=== PATIENT | male | born 1935 | race Caucasian/White ===

== ENCOUNTER 2017-08-06 08:53 | Inpatient (IN) | payer MEDICARE ==
--- NOTE | 2017-08-06 09:30 | ED ---
General Adult HPI - General Chief complaint: Extremity Injury, Upper Stated complaint: LEFT HIP PAIN Time Seen by Provider: 08/06/17 09:22 Source: patient, RN notes reviewed Mode of arrival: wheelchair Limitations: no limitations - History of Present Illness Initial comments: 81-year-old male presents emergency per chief complaint of left hip pain. Patient states he is scheduled to have his left hip redone by Dr. Bautista on August 15 because the hip keeps popping in and out. Patient states that he woke up and went to turn off alarm and he felt as if his hip went out. Patient states she's been unable to ambulate since then. Patient states that this happens often. She admits to some cramping in the leg. Patient states in certain positions he does not have pain and others he has increased pain that is moderate. Patient states he was unable to give him himself at home so he thought that he could come here for STD. Patient states he is not currently having any other symptoms at this time. Patient denies any recent fever, chills , shortness of breath, chest pain, back pain, abdominal pain, nausea vomiting, numbness or tingling, dysuria or hematuria, constipation or diarrhea, headaches or visual changes, or any other current symptoms. - Related Data Home Medications Medication Instructions Recorded Confirmed Lisinopril [Zestril] 5 mg PO DAILY 08/06/17 08/06/17 Tamsulosin HCl [Flomax] 0.4 mg PO BID 08/06/17 08/06/17 Allergies Allergy/AdvReac Type Severity Reaction Status Date / Time banana Allergy Unknown Verified 08/06/17 09:23 Milk Containing Products Allergy Unknown Verified 08/06/17 09:23 [Dairy] Review of Systems ROS Statement: Those systems with pertinent positive or pertinent negative responses have been documented in the HPI. ROS Other: All systems not noted in ROS Statement are negative. Past Medical History Past Medical History: Hypertension, Prostate Disorder History of Any Multi-Drug Resistant Organisms: None Reported Past Surgical History: Adenoidectomy, Hernia Repair, Joint Replacement, Tonsillectomy Past Psychological History: No Psychological Hx Reported Smoking Status: Never smoker Past Alcohol Use History: None Reported Past Drug Use History: None Reported General Exam - General Exam Comments Initial Comments: General: The patient is awake and alert, in no distress, and does not appear acutely ill. Neck: The neck is supple, there is no tenderness. Cardiovascular: There is a regular rate and rhythm. No murmur, rub or gallop is appreciated. Respiratory: Lungs are clear to auscultation, respirations are non-labored, breath sounds are equal. No wheezes, stridor, rales, or rhonchi. Musculoskeletal: Sensation intact with 2+ pulses at the left lower extremity. Fund motion of left ankle. Patient has about 50% range of motion left knee which is limited due to pain with movement of the left knee and the hip. Patient is able to lay down as well as sitting at bedside with left hip. No obvious deformity noted. Neurological: CN II-XII intact, There are no obvious motor or sensory deficits. Coordination appears grossly intact. Speech is normal. Skin: Skin is warm and dry and no rashes or lesions are noted. Psychiatric: Normal mood and affect. Limitations: no limitations Course Vital Signs 08/06/17 09:15 Temperature 97.1 F L Pulse Rate 74 Respiratory 18 Rate Blood Pressure 152/91 O2 Sat by Pulse 98 Oximetry Procedures - Orthopedic Joint Reduction Joint #1 Consent Obtained: verbal consent Time Out Performed: Yes Side: left Joint Reduction Location: hip Analgesia: procedural sedation Amount of Anesthetic Used (mLs): 10 Technique Used: traction/counter-traction Post-Reduction Neuro Exam: intact Post-Reduction Vascular Exam: intact Post Reduction X-Ray Obtained: No Post Reduction X-Ray Results: not reduced Patient Tolerated Procedure: well, no complications Medical Decision Making - Medical Decision Making 81-year-old male presents for left hip pain. Patient does appear to have a hip dislocation. We did attempt to reduce the hip without success. Dr. Bennett was contacted by . The patient will be admitted we will keep him nothing by mouth. Patient is in agreement with this plan. - Radiology Data Radiology results: report reviewed, image reviewed Disposition Clinical Impression: Hip dislocation, left Disposition: ADMITTED IP TO THIS [facility] Condition: Stable Referrals: Masoud Joy Jr, DO [Primary Care Provider] - 1-2 days Decision Date: 08/06/17 Decision Time: 11:24
--- NOTE | 2017-08-06 10:02 | XR ---
EXAMINATION TYPE: XR Hip LT and AP Pelvis DATE OF EXAM: 08/06/2017 COMPARISON: NONE HISTORY: Left hip pain after bending injury. TECHNIQUE: A single AP view of the pelvis is obtained. Two views of the left hip are obtained. FINDINGS: On the attempted frog-leg image there appears to be displacement of the metallic component of the femoral head relative to the metallic acetabulum suggesting prosthetic dislocation. No acute f racture is evident. There is moderate joint space loss and subchondral cystic change with spurring in the right hip. Osse ous structures are demineralized. Sacroiliac joints are maintained. Vascular calcification overlying soft tissue is present. IMPRESSION: There is left hip prosthesis dislocation. This could be transient. Correlate clinically.
[2017-08-06] MEDS ORDERED: SODIUM CHLORIDE 0.9% 1,000 ML IV STA (10:46)
[2017-08-06] MEDS ORDERED: PROPOFOL 10 MG/ML 20 ML VIAL IV STA (10:46)
[2017-08-06] MEDS ORDERED: NALOXONE 0.4 MG/ML 1 ML VIAL IV PRN (11:36)
[2017-08-06] MEDS ORDERED: ONDANSETRON 4 MG/2 ML VIAL IVP PRN (11:36)
[2017-08-06] MEDS ORDERED: HYDROmorphone 0.5 MG/0.5 ML SYRINGE IVP PRN (11:36)
[2017-08-06 12:03] LABS: Basophils % (A) 0 %; CH 30.9; CHCM 33.6; Eosinophils # (A) 0.1 k/uL (0-0.7); Eosinophils % (A) 1 %; HCT 47.5 % (39.0-53.0); HDW 2.62; HGB 15.7 gm/dL (13.0-17.5); Luc # (Auto) 0.07; Luc % (Auto) 1; Lymphocytes # (A) 0.9 k/uL (1.0-4.8); Lymphocytes % (A) 12 %; MCH 30.6 pg (25.0-35.0); MCHC 33.1 g/dL (31.0-37.0); MCV 92.4 fL (80.0-100.0); Mean Platelet Volume 8.4; Monocytes # (A) 0.4 k/uL (0-1.0); Monocytes % (A) 5 %; Neutrophils # (A) 6.4 k/uL (1.3-7.7); Neutrophils % (A) 81 %; RBC 5.14 m/uL (4.30-5.90); RDW 13.1 % (11.5-15.5); WBC 7.9 k/uL (3.8-10.6)
--- NOTE | 2017-08-06 12:07 | XR ---
EXAMINATION TYPE: XR Hip Limited LT DATE OF EXAM: 08/06/2017 CLINICAL HISTORY: Left hip dislocation. TECHNIQUE: Single AP portable view of left hip is obtained after attempted reduction. COMPARISON: Pelvic and left hip x-ray from earlier today. FINDINGS: Metallic hardware from total left hip arthroplasty is redemonstrated. Metallic femoral head component on single projection image is slightly more superior and more lateral in position relative to the acetabular component on prior study. It is partially covered by metallic acetabulum. Adjacent heterotopic ossification is redemonstrated. No full prosthetic dislocation is evident on single view after attempted reduction but this was only evident on prior frog-leg view. IMPRESSION: As above
--- NOTE | 2017-08-06 12:09 | XR ---
EXAMINATION TYPE: XR chest 2V DATE OF EXAM: 08/06/2017 COMPARISON: 01/07/2014 HISTORY: Chest pain. TECHNIQUE: Frontal and lateral views of the chest are obtained. FINDINGS: There is no focal air space opacity, pleural effusion, or pneumothorax seen. The cardiac silhouette size is mildly enlarged. The osseous structures are intact. Bridging osteophytes are seen of the thoracic spine anteriorly. Degenerative changes of the acromioclavicular joint and glenohumera l joints are also seen. IMPRESSION: No acute cardiopulmonary process.
[2017-08-06 12:11] LABS: Partial Thromboplastin Time 25.4 sec (22.0-30.0); Prothrombin Time 10.5 sec (9.0-12.0)
[2017-08-06 12:20] LABS: ALT 43 U/L (21-72); AST 48 U/L (17-59); Alkaline Phosphatase 80 U/L (38-126); Anion Gap 10 mmol/L; Blood Urea Nitrogen 14 mg/dL (9-20); Calcium 8.7 mg/dL (8.4-10.2); Carbon Dioxide 24 mmol/L (22-30); Chloride 107 mmol/L (98-107); Glucose 114 mg/dL (74-99); Non-African American GFR(MDRD) >60 (>60 ml/min/1.73 sqM); Potassium 4.6 mmol/L (3.5-5.1); Sodium 141 mmol/L (137-145); Total Bilirubin 0.9 mg/dL (0.2-1.3); Total Protein 6.9 g/dL (6.3-8.2)
--- NOTE | 2017-08-06 12:43 | XR ---
EXAMINATION TYPE: XR Hip Limited LT DATE OF EXAM: 08/06/2017 CLINICAL HISTORY: Left hip pain after dislocation TECHNIQUE: Single frog leg view of left hip is obtained. COMPARISON: None. FINDINGS: Metallic hardware from left hip arthroplasty is seen and appears satisfactory in alignment and position. The previously seen lateral subluxation is not redemonstrated after relocation. Regine ding heterotopic ossification the femoral component and periprosthetic lucency is seen of the acetabu lar component. There is evidence of recent surgery with subcutaneous gas noted laterally. IMPRESSION: 1. Metallic hardware from left hip arthroplasty is satisfactory in position. Previously seen subluxa tion is not redemonstrated on this examination. 2. Periprosthetic lucency around the acetabular component of the left femoral arthroplasty that could relate to aseptic or septic loosening.
[2017-08-06] MEDS ORDERED: LISINOPRIL 5 MG TAB PO STA (14:29)
--- NOTE | 2017-08-06 15:53 | P.HPOR ---
History of Present Illness H&P Date: 08/06/17 Chief Complaint: Left hip dislocation This is an 81-year-old male who is seen and evaluated today [facility]. Patient was brought to the emergency room with regards to left hip pain. Patient has a history of a left total hip arthroplasty that was done about 20 years ago at the [facility]. Since the initial surgery, patient has had multiple issues with that left hip including subluxations and dislocations. Patient states that it dislocates often posteriorly and he is able to relocate the hip. He was reaching over this morning to shut off the alarm clock when he noticed immediate pain and inability to move his leg on that left side. It felt different than all the other dislocations that he's had. Upon arrival to the hospital, imaging and lab tests were done. Images demonstrated a anterior dislocated periprosthetic left hip. Initial relocation technique was tried by the emergency room staff, they were unable to achieve this. Our orthopedic team was then consult it with regards to this problem. I initially saw the patient in the emergency room. Patient was then scheduled for closed reduction under anesthesia of the left hip. Procedure will be done the afternoon of 08/06/2017. Patient was made nothing by mouth at the time of arrival to the hospital. Patient is actually scheduled for a revision left total hip arthroplasty with a different orthopedic surgeon in [place] on 08/15/2018. Patient was actually supposed to report to the hospital for preoperative testing today. Patient will likely be admitted to the hospital overnight for further evaluation. Review of Systems Constitutional: Reports as per HPI Past Medical History Past Medical History: Atrial Fibrillation, Eye Disorder, Hypertension, Myocardial Infarction ([place]), Pneumonia, Prostate Disorder Additional Past Medical History / Comment(s): Afib with RVR when pt had pneumonia, BPH, colon polyp/diverticular dx, astigmatism L eye, [place] 1997 per stress test, gastric ulcer, generalized arthritis. Last Myocardial Infarction Date:: 1997 History of Any Multi-Drug Resistant Organisms: None Reported Past Surgical History: Adenoidectomy, Hernia Repair, Orthopedic Surgery, Tonsillectomy Additional Past Surgical History / Comment(s): R inguinal hernia repair, ORIF L hip, vasectomy, hemorrhoidectomy, colonoscopy. Past Anesthesia/Blood Transfusion Reactions: No Reported Reaction Smoking Status: Former smoker - Past Family History Mother Family Medical History: No Reported History Additional Family Medical History / Comment(s): Mother was executed in [place]. Sister(s) Family Medical History: No Reported History Additional Family Medical History / Comment(s): Sister was executed in [place]. Father Family Medical History: CVA/TIA, Myocardial Infarction ([place]) Medications and Allergies Home Medications Medication Instructions Recorded Confirmed Type Lisinopril [Zestril] 5 mg PO DAILY 08/06/17 08/06/17 History Tamsulosin HCl [Flomax] 0.4 mg PO BID 08/06/17 08/06/17 History Allergies Allergy/AdvReac Type Severity Reaction Status Date / Time banana Allergy Unknown Verified 08/06/17 09:23 Milk Containing Products Allergy Unknown Verified 08/06/17 09:23 [Dairy] Physical Examination Left lower extremity: Obvious shortening and internal rotation of the leg is noted when compared to contralateral side. There is no obvious open lesions or sores. There is no obvious significant areas of ecchymosis or soft tissue swelling. Previous scars noted on the lateral aspect of the left leg. No effusion present over the knee. Logroll maneuver reproduces pain, he is unable to straight leg raise. Plantar flexion, dorsiflexion, EHL, FHL are intact. Sensory exam to light touch throughout the extremities intact. Dorsal pedis pulse was palpated with doppler. Results - Labs Labs: Abnormal Lab Results - Last 24 Hours (Table) 08/06/17 08/06/17 Range/Units 11:45 11:45 Plt Count 132 L (150-450) k/uL Lymphocytes # 0.9 L (1.0-4.8) k/uL Glucose 114 H (74-99) mg/dL H & H 08/06/17 Range/Units 11:45 Hgb 15.7 (13.0-17.5) gm/dL Hct 47.5 (39.0-53.0) % Coagulation 08/06/17 Range/Units 11:45 INR 1.0 (<1.2) Result Diagrams: 08/06/17 11:45 08/06/17 11:45 - Diagnostic results Hip x-ray: report reviewed, image reviewed Assessment and Plan Plan: Imaging: Multiple views of the left hip are obtained both pre-and post relocation attempt. Images do demonstrate the anterior dislocation of the left periprosthetic hip. There appears to be no acute fractures or dislocations. No other osseous abnormalities. Assessment: 1. Left periprosthetic hip dislocation 2. Nontraumatic event 3. Previous left total hip arthroplasty done in 1997 Plan: 1. I was able to discuss the case, including both physical exam findings and imaging studies with Dr. Salguero. Our plan is to proceed with a closed reduction of the left hip under direct xray visualization. The risks and benefits of the procedure were discussed with him at bedside today, he is in a grandson will likely proceed. Case will be scheduled for the afternoon of 08/06/2017. 2. Anticipate patient to stay at least one night in the hospital for further monitoring 3. Nothing by mouth diet at this time 4. Therapy evaluation after surgery 5. Further recommendations to follow Time with Patient: Less than 30
[2017-08-06] MEDS ORDERED: LACTATED RINGERS 1,000 ML IV ONE (16:00)
[2017-08-06] MEDS ORDERED: fentaNYL (PF) 50 MCG/ML 2 ML AMP ONE (17:10)
[2017-08-06] MEDS ORDERED: HYDROcodone/APAP 5-325MG 1 EACH TAB PO PRN (17:24)
--- NOTE | 2017-08-06 17:29 | P.OP ---
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 He notes these able to normally dario this is in himself. He claims he is scheduled for revision arthroplasty in the next couple weeks. He underwent attempted closed reduction the emergency room without success. He discussion of the risks and benefits of attempted closed reduction with general anesthesia was made with patient. He opted to proceed. Operative risks to include recurrence of dislocation and need for subsequent procedures was discussed. Informed consent was obtained. Operative Findings: Posterior dislocation of a left total hip arthroplasty Description of Procedure: The patient was brought to the operating room, and after induction of general anesthesia I examined the left hip. There was shortening along with internal rotation and flexion of the left leg. I then flexed to 90, abducted the hip, and pulled longitudinal traction and easily reduced this dislocation. Fluoroscopy was used to check the adequacy this. I felt it was stable throughout flexion and extension. An abductor a little was placed. The patient was awoken from general anesthesia and transferred to the recovery room in good condition. There was no blood loss. No complications were incurred.
[2017-08-06 18:32] LABS: Basophils % (A) 1 %; CH 31.8; CHCM 33.6; Eosinophils # (A) 0.1 k/uL (0-0.7); Eosinophils % (A) 1 %; HCT 46.9 % (39.0-53.0); HDW 2.53; HGB 15.2 gm/dL (13.0-17.5); Luc # (Auto) 0.07; Luc % (Auto) 1; Lymphocytes # (A) 0.9 k/uL (1.0-4.8); Lymphocytes % (A) 12 %; MCH 30.9 pg (25.0-35.0); MCHC 32.5 g/dL (31.0-37.0); MCV 95.1 fL (80.0-100.0); Monocytes # (A) 0.5 k/uL (0-1.0); Monocytes % (A) 6 %; Neutrophils # (A) 6.1 k/uL (1.3-7.7); Neutrophils % (A) 79 %; RBC 4.93 m/uL (4.30-5.90); RDW 14.3 % (11.5-15.5); WBC 7.7 k/uL (3.8-10.6)
[2017-08-06] MEDS: TAMSULOSIN 0.4 MG CAP.ER.24H PO SCH (20:19)
[2017-08-07 07:33] VITALS: BP 118/63; PULSE 93; RESP 16; TEMP 96.8
[2017-08-07] MEDS: TAMSULOSIN 0.4 MG CAP.ER.24H PO SCH (08:23)
[2017-08-07] MEDS ORDERED: LISINOPRIL 5 MG TAB PO SCH (09:00)
--- NOTE | 2017-08-07 09:45 | FL ---
Fluoroscopy HISTORY: Closed reduction 2 seconds fluoroscopy time supplied to the referring clinician. 1 intraoperative C-arm image documen ts the procedure. See dictated report from orthopedic surgery.
--- NOTE | 2017-08-07 12:49 | P.PN ---
Subjective Progress Note Date: 08/07/17 Principal diagnosis: s/p closed reduction left hip Patient seen today resting in his hospital bed, he appears comfortable. He's been very minimal discomfort with regards to left hip. He did bring his hip abduction brace from home, he is wearing at this point. Objective - Vital Signs Vital signs: Vital Signs Temp 96.8 F L 08/07/17 07:32 Pulse 93 08/07/17 07:32 Resp 16 08/07/17 07:32 BP 118/63 08/07/17 07:32 Pulse Ox 93 L 08/07/17 07:32 Intake & Output 08/06/17 08/07/17 08/07/17 18:59 06:59 18:59 Intake Total 400 120 Output Total 1200 600 Balance 400 -1200 -480 Weight 101.151 kg Intake: IV 400 Oral 120 Output: Urine 1200 600 Other: Voiding Method Urinal Urinal Urinal # Voids 0 0 # Bowel Movements 1 - Exam Left lower extremity: Alignment of the left lower extremity is appropriate, there is no obvious shortening or malalignment with rotation. Minimal pain with logroll maneuver. No pain surrounding the knee or foot or ankle. Sensation to light touch is intact throughout the extremity, does pedis pulses 2+. - Labs CBC & Chem 7: 08/06/17 18:09 08/06/17 11:45 Labs: Abnormal Lab Results - Last 24 Hours (Table) 08/06/17 Range/Units 18:09 Plt Count 141 L (150-450) k/uL Lymphocytes # 0.9 L (1.0-4.8) k/uL Assessment and Plan Plan: Assessment: 1. Postop day 1 status post closed reduction left hip Plan: Advise use of hip abduction brace at all times Advised posterior hip precautions Patient is scheduled to follow-up with Dr. Bautista for further treatment of the left hip Patient will be given our follow-up information for any further questions regarding this condition Time with Patient: Less than 30
--- NOTE | 2017-08-07 12:53 | P.DS ---
Providers Date of admission: 08/06/17 11:36 Expected date of discharge: 08/07/17 Attending physician: Lalito Salguero Primary care physician: [facility] Course: Date of admission: 08/06/2017 Date of discharge: 08/07/2017 Admission diagnosis: Left periprosthetic hip dislocation Discharge diagnosis: Status post closed reduction left hip Attending physician: Dr. Salguero Surgical procedures: Closed reduction left hip dislocation Brief history: Patient is a 81-year-old man who presented to [facility] on emergency room yesterday with a dislocated left hip. Patient has a history of a left total hip arthroplasty that was done about 20 years ago at a different facility. Patient has had recurrent dislocations of the hip in the past. Patient is asked was scheduled for a revision left total hip arthroplasty with Dr. Bautista at [facility] on 08/15/2018. Patient was admitted to the hospital and a closed reduction procedure by Dr. Salguero was scheduled for the afternoon of 08/06/2017. Hospital course: Details of patient's surgery can be found in operative report. Patient tolerated the procedure well and was subsequently transported to orthopedic floor. Patient's orthopeidc and medical care was provided daily. Patient had daily physical therapy to include strengthening range of motion as well as education with walker ambulation. Patient had daily CPM usage as part of their physical therapy program. Patient was noted to have a relatively uneventful postoperative course. Patient reported satisfactory pain control with oral pain medications by postoperative day 0. Patient showed satisfactory progress with physical therapy. Patient moved steadily through the program and had no difficulty meeting the goals by postoperative day 1. Given patient's otherwise satisfactory course and having met physical therapy goals, plan is to discharge patient home on postoperative day 1. Discharge condition/disposition: Patient will be discharged home in stable condition. Discharge medications: No new medications Discharge instructions: 1. Patient was advised to utilize hip abduction brace at all times 2. Advised patient to utilize posterior hip precautions 3. Advised continuation of follow-up with Dr. Bautista 4. Patient will be given our office information for as needed follow-up Procedures: Closed reduction left hip dislocation Patient Condition at Discharge: Stable Plan - Discharge Summary Discharge Rx Participant: No New Discharge Prescriptions: No Action Tamsulosin HCl [Flomax] 0.4 mg PO BID Lisinopril [Zestril] 5 mg PO DAILY Aspirin [Adult Low Dose Aspirin EC] 81 mg PO DAILY Discharge Medication List Aspirin [Adult Low Dose Aspirin EC] 81 mg PO DAILY 08/06/17 [History] Lisinopril [Zestril] 5 mg PO DAILY 08/06/17 [History] Tamsulosin HCl [Flomax] 0.4 mg PO BID 08/06/17 [History] Follow up Appointment(s)/Referral(s): Masoud Joy Jr, DO [Primary Care Provider] - 1-2 days Lalito Salguero MD [STAFF PHYSICIAN] - As Needed Activity/Diet/Wound Care/Special Instructions: Orthopedic discharge instructions: 1. Utilize hip abduction brace at all times 2. Adhere to posterior hip precautions 3. Follow-up with Dr. Bautista for further treatment 4. Follow-up as needed with Dr. Salguero for any further questions regarding this condition Discharge Disposition: HOME SELF-CARE
--- NOTE | 2017-08-07 15:31 | XR ---
Left hip HISTORY: Closed reduction 1 Intraoperative C-arm image documents the procedure
== END 2017-08-07 13:17 | disposition home or self-care (01) | DRG 561 ==
LOC: EC 08:53 → 3SUR 11:36 → 4MS4W 12:23
PROVIDERS: ADMIT Orthopaedic Surgery; ATTEND Orthopaedic Surgery
PROC: 0SWSXJZ Revision of Synthetic Substitute in Left Hip Joint, Femoral Surface, External Approach (ICD-10-PCS; principal; 2017-08-06 08:30)
DX: T84.021A Dislocation of internal left hip prosthesis, initial encounter (principal); I48.91 Unspecified atrial fibrillation; I10 Essential (primary) hypertension; I25.2 Old myocardial infarction; N40.0 Benign prostatic hyperplasia without lower urinary tract symptoms; M19.91 Primary osteoarthritis, unspecified site; Z86.010 Personal history of colon polyps; Z79.82 Long term (current) use of aspirin; Z79.899 Other long term (current) drug therapy; Z87.11 Personal history of peptic ulcer disease; Z87.891 Personal history of nicotine dependence; Z91.011 Allergy to milk products; Z91.018 Allergy to other foods; Y79.2 Prosthetic and other implants, materials and accessory orthopedic devices associated with adverse incidents
CPT/HCPCS: 71020; 73501; 73502; 80053; 85025; 85610; 85730; 86850; 86900; 86901; 96361; 96374; 99284

== ENCOUNTER → 2018-10-31 | Outpatient (CLI) | payer MEDICARE, OTHER ==
--- NOTE | 2018-10-31 12:08 | CONS ---
CONSULTATION DATE OF SERVICE: 10/31/2018 An 83-year-old gentleman who has been evaluated in the [facility] for possible obstructive sleep apnea-hypopnea syndrome. HISTORY OF PRESENT ILLNESS/SLEEP WAKE EVALUATION: Patient's usual sleep schedule from around midnight until 6 am. Usually no problems with falling asleep. No TV in bedroom. He sleeps by himself at the present time. Sometimes, he wakes up because he needs to go to the bathroom. No history of hypnagogic hallucinations, sleep paralysis or cataplexy. [place] Sleepiness Scale is 7. PAST MEDICAL HISTORY: Positive for atrial fibrillation. PAST SURGICAL HISTORY: Total left hip replacement and hernia repair. MEDICATIONS: Coumadin, Lasix, potassium supplement, tamsulosin. SOCIAL HISTORY: Positive for smoking up to 3 - 4 pack years, quit for about for 40 years. Quit in 1993. Alcohol consumption none at the present time. REVIEW OF SYSTEMS: Sometimes tiredness and sleepiness during the day. FAMILY HISTORY: Stroke and sleep apnea by his father. PHYSICAL EXAM: gentleman without distress. BP 142/91, HR 83, RR 16, height 5, 8 inches, weight 241.8, body mass index 36.7, temperature 97.0, oxygen saturation at room air 96%. OROPHARYNX: Extremely low position of soft palate, Mallampati 4, wide neck 17-1/4 inches in circumference. ABDOMEN: Obese. EXTREMITIES: 1+ bilateral ankle edema. HEART: S1, S2, irregularly irregular. IMPRESSION: 1. Extremely low position of soft palate, Mallampati 4, wide neck, obesity, obstructive sleep apnea-hypopnea syndrome. 2. Atrial fibrillation. 3. Obesity, body mass index 36.7. 4. Status post left hip total replacement. 5. Status post hernia repair. PLAN: 1. Polysomnography for evaluation of patient's breathing during sleep. 2. CPAP/BiPAP titration if sleep study confirms obstructive sleep apnea-hypopnea syndrome. 3. Preferable position during sleep on the side. 4. No driving if patient feels any sleepiness. 5. I will see patient for follow up visit to explain results of testing and following plan. Thank you very much for referring this patient for consultation. Sincerely, Andres Martinez MD, PhD, FAASM Diplomat of [place] [employer] [place] [employer] [facility] [place] SANJAY / JEANNA: [phone] /
== END ==
LOC: SLEEP 10:44
PROVIDERS: ATTEND Internal Medicine
DX: G47.33 Obstructive sleep apnea (adult) (pediatric) (principal); I48.91 Unspecified atrial fibrillation; E66.9 Obesity, unspecified; Z96.642 Presence of left artificial hip joint; Z98.890 Other specified postprocedural states; Z68.36 Body mass index [BMI] 36.0-36.9, adult; Z99.89 Dependence on other enabling machines and devices; Z79.899 Other long term (current) drug therapy; Z79.01 Long term (current) use of anticoagulants; Z87.891 Personal history of nicotine dependence
CPT/HCPCS: 99211

== ENCOUNTER → 2019-07-16 | Outpatient (CLI) | payer MEDICARE, OTHER | END | disposition home or self-care (01) | LOC: LABWHC1 12:56 | PROVIDERS: ATTEND Family Medicine | DX: B96.81 Helicobacter pylori [H. pylori] as the cause of diseases classified elsewhere (principal) | CPT/HCPCS: 87338 ==

== ENCOUNTER → 2019-08-15 | Outpatient (CLI) | payer MEDICARE, OTHER ==
--- NOTE | 2019-08-15 17:26 | CT ---
EXAMINATION TYPE: CT chest wo con DATE OF EXAM: 08/15/2019 COMPARISON: None HISTORY: increasing difficulty breathing CT DLP: 474.8 mGycm, Automated exposure control for dose reduction was used. CONTRAST: None TECHNIQUE: Axial images were obtained at 5 mm thick sections. Reconstructed images are reviewed on [employer] computer in the coronal plane. FINDINGS: Portion of the thyroid visualized is normal. There is a 0.3 cm calcification at the base of the right middle lobe. This is adjacent to some nodula rity measuring 1.0 x 1.6 cm. Additional workup with PET CT is recommended. No enlarged mediastinal or hilar adenopathy is evident. Scattered small lymph nodes or within the m ediastinum. The ascending aorta diameter at the level of the main pulmonary artery is 3.6 cm. The ma in pulmonary artery diameter at the bifurcation is 3.3 cm. Moderate coronary artery calcification is present. Heart size appears prominent Limited CT sections are obtained through the upper abdomen. Upper abdomen appears essentially unremar kable. IMPRESSIONS: 1. There is a 1.0 x 1.6 cm lobular density at the right middle lobe lung base. Neoplasm is not exclud ed. Other etiologies including atelectasis or scarring can be considered. Additional workup with PET CT is recommended. 2. Cardiomegaly A Yellow level critical message alert has been initiated for Masoud Joy Jr, DO via the [email or web address] Critical Results System on 08/15/2019 5:24 PM. This message alert has been sent to Masoud mcfarland Jr, DO via the preferences provided by the clinician for the receipt of Radiology Critical Finding s. Message ID [id number].
== END | disposition home or self-care (01) ==
LOC: RADCTMAIN 13:03
PROVIDERS: ATTEND Family Medicine
DX: Z09 Encounter for follow-up examination after completed treatment for conditions other than malignant neoplasm (principal); I51.7 Cardiomegaly; R91.8 Other nonspecific abnormal finding of lung field; Z87.891 Personal history of nicotine dependence; Z88.5 Allergy status to narcotic agent
CPT/HCPCS: 71250

== ENCOUNTER → 2019-08-28 | Outpatient (CLI) | payer MEDICARE, OTHER | END | disposition home or self-care (01) | LOC: CPPFTMAIN 07:08 | PROVIDERS: ATTEND Internal Medicine Critical Care Medicine | DX: J44.9 Chronic obstructive pulmonary disease, unspecified (principal); R94.2 Abnormal results of pulmonary function studies | CPT/HCPCS: 94060; 94726; 94729 ==

== ENCOUNTER → 2019-08-29 | Outpatient (CLI) | payer MEDICARE, OTHER ==
--- NOTE | 2019-09-01 12:08 | PE ---
Nuclear medicine PET/CT HISTORY: Lung nodule, initial Patient received 12.3 mCi F-18 FDG intravenously in delayed scanning was performed from the skull bas e to the mid thighs. An attenuation correction and localization CT was also performed. Correlation chest CT dated 08/15/2019 Neck and chest: There is no abnormal hypermetabolic uptake. The area described in the right middle lo be inferiorly likely corresponds to some focal scarring, there is no associated hypermetabolic uptake . There is no evident cervical, supraclavicular, axillary, hilar, or mediastinal uptake. There is a l obular soft tissue mass present in the substernal location which is from the thyroid gland and measures approximately 2.5 cm in greatest dimension with some associated mixed low attenuation an terior to the trachea in the superior mediastinum without associated uptake. No additional lung mass. There are coronary artery calcifications. Some calcifications also present within the hilum on the r ight, left and mediastinum. ABDOMEN: Liver shows some associated low-attenuation foci as on prior exam, no associated hypermetabo lic uptake. There is no retroperitoneal adenopathy. Adrenal glands are stable. Aorta shows atheromato us change as do mesenteric vessels. No suspicious hypermetabolic uptake. Prostate shows associated ca lcification. Urinary bladder shows a mildly thickened wall possibly due to chronic outlet obstruction , correlate to exclude urinary tract infection. Bowel activity seen in the sigmoid:, Rectum could be due to physiologic activity, correlate for bowel surveillance history. Osseous structures: Postop changes are noted to the left hip. There is streak artifact due to patient 's hip arthroplasty. Degenerative disc changes, facet arthropathy noted especially in the lumbar spin e. Uptake within the shoulders is likely due to arthropathy. IMPRESSION: The abnormality described on CT chest does not show associated hypermetabolic uptake and is felt likely to be benign, follow-up chest CT in one year. Indeterminate soft tissue mass in the lainez perior mediastinum does not show associated hypermetabolic uptake, follow-up could be performed to as sess for stability. Uptake in the sigmoid colon and rectum as described.
== END | disposition home or self-care (01) ==
LOC: RADPETMAIN 14:49
PROVIDERS: ATTEND Internal Medicine Critical Care Medicine
DX: R91.1 Solitary pulmonary nodule (principal)
CPT/HCPCS: 78815; A9552

== ENCOUNTER → 2019-10-23 | Outpatient (CLI) | payer MEDICARE, OTHER ==
--- NOTE | 2019-10-24 12:01 | ECHOF ---
Referral Reason:R01.1 Cardiac murmur, unspecified R53.82 Chronic MEASUREMENTS -------- HEIGHT: 172.7 cm WEIGHT: 95.3 kg BP: 177/85 RVIDd: 3.3 cm (< 3.3) IVSd: 1.6 cm (0.6 - 1.1) LVIDd: 3.7 cm (3.9 - 5.3) LVPWd: 1.4 cm (0.6 - 1.1) IVSs: 2.0 cm LVIDs: 2.8 cm LVPWs: 1.7 cm LA Diam: 4.1 cm (2.7 - 3.8) LAESV Index (A-L): 36.86 ml/m Ao Diam: 3.5 cm (2.0 - 3.7) AV Cusp: 1.6 cm (1.5 - 2.6) MV EXCURSION: 17.354 mm (> 18.000) MV EF SLOPE: 65 mm/s (70 - 150) EPSS: 1.4 cm AV maxP.28 mmHg AV meanP.05 mmHg RAP: 5.00 mmHg RVSP: 32.43 mmHg FINDINGS -------- Atrial fibrillation. This was a technically adequate study. The left ventricular size is normal. There is moderate concentric left ventricular hypertrophy. O verall left ventricular systolic function is low-normal with, an EF between 50 - 55 %. The right ventricle is mildly enlarged. LA is moderately dilated 34-39 ml/m2 The right atrium is normal in size. Interatrial and interventricular septum intact. There is moderate aortic valve sclerosis. There is mild aortic stenosis present. Peak/mean gradie nt across the Aortic Valve is 36.28mmHg / 17.05mmHg. The mitral valve leaflets are mildly thickened. Mild mitral annular calcification present. There is trace to mild mitral regurgitation. Mild tricuspid regurgitation present. Right ventricular systolic pressure is normal at < 35 mmHg. Trace/mild (physiologic) pulmonic regurgitation. The aortic root size is normal. Normal inferior vena cava with normal inspiratory collapse consistent with estimated right atrial pre ssure of 5 mmHg. There is no pericardial effusion. CONCLUSIONS -------- 1. Atrial fibrillation. 2. This was a technically adequate study. 3. The left ventricular size is normal. 4. There is moderate concentric left ventricular hypertrophy. 5. The right ventricle is mildly enlarged. 6. LA is moderately dilated 34-39 ml/m2 7. The right atrium is normal in size. 8. Interatrial and interventricular septum intact. 9. There is moderate aortic valve sclerosis. 10. There is mild aortic stenosis present. 11. Peak/mean gradient across the Aortic Valve is 36.28mmHg / 17.05mmHg. 12. The mitral valve leaflets are mildly thickened. 13. Mild mitral annular calcification present. 14. There is trace to mild mitral regurgitation. 15. Mild tricuspid regurgitation present. 16. Right ventricular systolic pressure is normal at < 35 mmHg. 17. Trace/mild (physiologic) pulmonic regurgitation. 18. The aortic root size is normal. 19. Normal inferior vena cava with normal inspiratory collapse consistent with estimated right atrial pressure of 5 mmHg. 20. There is no pericardial effusion. AD WRITER: Kerrie Wooten RDCS
== END | disposition home or self-care (01) ==
LOC: RADECHMAIN 14:57
PROVIDERS: ATTEND Family Medicine
DX: I08.3 Combined rheumatic disorders of mitral, aortic and tricuspid valves (principal); R53.82 Chronic fatigue, unspecified; Z88.8 Allergy status to other drugs, medicaments and biological substances
CPT/HCPCS: 93306

== ENCOUNTER → 2021-05-20 | Outpatient (CLI) | payer MEDICARE ==
--- NOTE | 2021-05-20 16:42 | US ---
EXAMINATION TYPE: US carotid duplex BILAT DATE OF EXAM: 05/20/2021 COMPARISON: NONE CLINICAL HISTORY: R55 SYNCOPE. EXAM MEASUREMENTS: RIGHT: Peak Systolic Velocity (PSV) cm/sec ----- Right CCA: 67.7 ----- Right ICA: 114.3 ----- Right ECA: 79.5 ICA/CCA ratio: 1.7 RIGHT: End Diastole cm/sec ----- Right CCA: 14.0 ----- Right ICA: 30.7 ----- Right ECA: 5.1 LEFT: Peak Systolic Velocity (PSV) cm/sec ----- Left CCA: 83.2 ----- Left ICA: 95.1 ----- Left ECA: 93.5 ICA/CCA ratio: 1.1 LEFT: End Diastole cm/sec ----- Left CCA: 18.4 ----- Left ICA: 30.5 ----- Left ECA: 0.0 VERTEBRALS (direction of flow): Right Vertebral: Antegrade Left Vertebral: Antegrade Rhythm: Normal Moderate amount of plaque visualized bilaterally. No elevated velocities, no significant stenosis IMPRESSION: 1. Atheromatous plaquing without significant flow-limiting stenosis. NASCET criteria was used in interpretation of this exam? Criteria for Assigning % of Stenosis / Diameter reduction (Estimation based on the indirect measurements of the internal carotid artery velocities (ICA PSV). 1. Normal (no stenosis)=ICA PSV < 125 cm/s: ratio < 2.0: ICA EDV<40 cm/s. 2. Less than 50% stenosis=ICA PSV < 125 cm/s: ratio < 2.0: ICA EDV<40 cm/s. 3. 50 to 69% stenosis=ICA PSV of 125 to 230 cm/s: ration 2.0 ? 4.0: ICA EDV 40-100 cm/s. 4. Greater than 70% stenosis to near occlusion= ICA PSV > 230 cm/s: ratio > 4.0: ICA EDV > 100 cm/s. 5. Near occlusion= ICA PSV velocities may be low or undetectable: variable ratio and ICA EDV. 6. Total occlusion=unable to detect flow.
== END | disposition home or self-care (01) ==
LOC: RADUSWWP 08:37
PROVIDERS: ATTEND Family Medicine
DX: I67.2 Cerebral atherosclerosis (principal); R55 Syncope and collapse
CPT/HCPCS: 93880

== ENCOUNTER 2022-02-28 06:35 | Day surgery (SDC) | payer MEDICARE ==
[2022-02-27 09:56] VITALS: BMI 31.4
[~2022-02-28 06:35] MED LIST: ALPRAZolam 0.25 MG TAB PO PRN; ALPRAZolam 0.5 MG TAB PO PRN; ASPIRIN 325 MG TAB PO STA; ATORVASTATIN 80 MG TAB PO STA; HEPARIN SODIUM,PORCINE 10,000 UNIT in SODIUM CHLORIDE 0.9% 1,000 ML IRRIGATION PRN; HEPARIN SODIUM,PORCINE 2,500 UNIT in SODIUM CHLORIDE 0.9% 250 ML IRRIGATION PRN; NITROGLYCERIN SL TABS 0.4 MG TAB SUBLINGUAL PRN; SODIUM CHLORIDE 0.9% 1,000 ML in EMPTY BAG 1 BAG IV SCH
[2022-02-28 07:19] VITALS: TEMP 98.1
[2022-02-28 07:24] LABS: Basophils # (A) 0.1 k/uL (0-0.2); Basophils % (A) 1 %; Eosinophils # (A) 0.1 k/uL (0-0.7); Eosinophils % (A) 2 %; HCT 43.2 % (39.0-53.0); HGB 13.8 gm/dL (13.0-17.5); Lymphocytes # (A) 1.5 k/uL (1.0-4.8); Lymphocytes % (A) 22 %; MCH 30.5 pg (25.0-35.0); MCV 95.3 fL (80.0-100.0); Mean Platelet Volume 9.5; Monocytes # (A) 0.5 k/uL (0-1.0); Monocytes % (A) 7 %; Neutrophils # (A) 4.5 k/uL (1.3-7.7); Neutrophils % (A) 67 %; Platelet Count 122 k/uL (150-450); RBC 4.53 m/uL (4.30-5.90); RDW 13.2 % (11.5-15.5); WBC 6.7 k/uL (3.8-10.6)
[2022-02-28 07:46] LABS: INR 1.8 (<1.2); Prothrombin Time 17.9 sec (9.0-12.0)
[2022-02-28 07:49] LABS: Calcium 8.4 mg/dL (8.4-10.2); Potassium 4.1 mmol/L (3.5-5.1)
[2022-02-28] MEDS ORDERED: fentaNYL (PF) 50 MCG/ML 2 ML AMP ONE (08:42)
[2022-02-28] MEDS ORDERED: IV FLUID CONTINUATION 1,000 ML IV ONE (08:48)
[2022-02-28] MEDS: BENZOCAINE SPRAY 1 CAN MUCOUS MEM ONE ×2 (09:03→09:10)
[2022-02-28] MEDS ORDERED: VERAPAMIL 2.5 MG/ML 2 ML AMP ONE (09:17)
[2022-02-28] MEDS: fentaNYL (PF) 50 MCG/ML 2 ML AMP IV ONE ×2 (09:19→09:22)
[2022-02-28] MEDS: MIDAZOLAM 2 MG/2 ML VIAL IV ONE ×2 (09:19→09:21)
[2022-02-28] MEDS ORDERED: MIDAZOLAM 2 MG/2 ML VIAL IV ONE (09:22)
[2022-02-28] MEDS ORDERED: HEPARIN SODIUM 1,000 UN/ML (10ML VL) ONE (09:39)
[2022-02-28] MEDS ORDERED: LIDOCAINE 1% INJ 10MG/ML (5 ML VIAL-PF) SQ ONE ×2 (09:52→09:54)
[2022-02-28] MEDS ORDERED: VERAPAMIL SYRINGE (5 MG/10 ML) INTRAARTER ONE (09:55)
[2022-02-28] MEDS ORDERED: HEPARIN SODIUM 1,000 UN/ML (10ML VL) IV ONE (09:58)
[2022-02-28] MEDS ORDERED: IOPAMIDOL-370 125ML BTL INJ ONE (10:19)
[2022-02-28 11:09] VITALS: RESP 16
[2022-02-28 14:39] VITALS: BP 167/84; PULSE 60
--- NOTE | 2022-03-01 00:38 | P.TEE ---
Description of Procedure(s): Procedure performed: Transesophageal Echocardiogram with color flow doppler, pulsed wave doppler and continuous wave doppler Moderate conscious sedation: Moderate conscious sedation was supplied with Versed and Fentanyl Complications: none Indications: Severe aortic stenosis PROCEDURE: After the risks, benefits and alternatives of the above mentioned procedure was explained in detail with the patient, informed consent was obtained. Patient was brought to the lab in a fasting state. Patient was given sedation with Versed and Fentanyl. The throat was sprayed with Hurricane to anesthetize the throat. A lubricated Omni probe was then introduced into the esophagus and stomach and multiple views were obtained. 2D echo with color flow doppler, pulsed wave doppler and continuous wave doppler was utilized. Agitated saline was injected with no evidence of PFO. The probe was then removed. Patient tolerated the procedure well. Patient was transferred to the post procedure area in stable and satisfactory condition. FINDINGS: 1. The aortic valve is tricuspid with severe aortic calcification and sclerosis with decreased cusp excursion. There is severe aortic stenosis with SILKE 0.6-0.7cm2. 2. The mitral valve appears be normal trace mitral regurgitation. 3. Tricuspid valve is normal with mild tricuspid regurgiation. 4. The interatrial septum is intact. No evidence of PFO by color or by agitated saline. 5. Left atrial appendage has no LINDA thrombus. Left atrium is dilated. 6. Left ventricular size appears normal. Left ventricular function is low normal with an ejection fraction 50-55%.
--- NOTE | 2022-03-01 00:52 | P.CARDCATH ---
Description of Procedure: PROCEDURES PERFORMED: Bilateral coronary angiography, iFR circumflex, iFR LAD INDICATION: Severe aortic stenosis CONSENT:I have discussed the risks, benefits and alternative therapies for the above-mentioned procedure and for both sedation/analgesia as well as necessary blood product administration, if indicated, as they pertain to this patient. The patient has indicated understanding and acceptance of the risks and procedures discussed. PROCEDURE: After the risks, benefits and alternatives of the above mentioned procedure explained in detail with the patient, informed consent was obtained. Patient was taken to the catheterization lab and prepped and draped in usual fashion. 1% lidocaine was used to anesthetize the right radial artery. A 6- [place] sheath was placed in the right radial artery using modified Seldinger technique. Left coronary angiography was performed with a 5-[place] JL 3.5 catheter and right coronary angiography was performed with a 6-[place] AR2 catheter in various views. The decision was made to iFR the circumflex and the LAD. A 6Fr CLS 3.5 guide was used to engage the left main. Heparin was given. A 0.014 pressure wire was advanced into the left main and normalized. The iFR was advanced into the distal circumflex and iFR measurement was performed. First measurement had drift and therefore renormalized and performed iFR of the circumflex again which was normal at 0.92. Next the wire was directed into the mid LAD, 1 cm distal the the mid LAD lesion. iFR LAD was abnormal at 0.89. The right radial sheath was removed and a TR band was placed with hemostasis achieved. The patient tolerated the procedure well. Patient was transported back to the post catheterization holding area in stable condition. Conscious Sedation: Patient was monitored under the direct supervision of vision of myself for conscious sedation using Versed and fentanyl for a total duration of 28 minutes HEMODYNAMICS: Aorta: 144/84 SELECTIVE CORONARY ARTERIOGRAPHY: LEFT MAIN: The left main is a large caliber vessel which bifurcates into the LAD and circumflex. There is distal left main 20% stenosis. LEFT ANTERIOR DESCENDING CORONARY ARTERY: LAD is a large caliber vessel which wraps around to the apex. There is a moderate diagonal 1 branch and immediately after the diagonal branch there is a 60-70% mid LAD stenosis, iFR 0.89. LEFT CIRCUMFLEX CORONARY ARTERY: Left circumflex is a moderate caliber vessel with 60-70% mid circumflex stenosis leading to 2 small OM branches. RIGHT CORONARY ARTERY: The right coronary artery is a large caliber vessel which gives off a PDA and PLV branch and is the dominant vessel. There is diffuse 50- 60% proximal and mid RCA disease and otherwise mild luminal irregularities. Small caliber branch of the PLV has a proximal 90% stenosis however is noted to be 1.5mm vessel. FINAL IMPRESSION: 1. CAD as described above including 20% left main, 60-70% mid LAD, 60-70% circumflex, 50-60% RCA stenosis. 2. iFR circumflex normal at 0.92, iFR LAD abnormal at 0.89. PLAN: 1. Aggressive risk factor modification per most recent ACC/AHA guidelines. 2. Given LAD appears more moderate with borderline iFR values would consider medical therapy of LAD lesion and no intervention before TAVR.
== END 2022-02-28 15:17 | disposition home or self-care (01) ==
LOC: CATHCVL 06:35
PROVIDERS: ATTEND Internal Medicine
DX: I35.0 Nonrheumatic aortic (valve) stenosis (principal); I25.10 Atherosclerotic heart disease of native coronary artery without angina pectoris; I48.19 Other persistent atrial fibrillation; I44.4 Left anterior fascicular block; I45.10 Unspecified right bundle-branch block; I11.0 Hypertensive heart disease with heart failure; I50.32 Chronic diastolic (congestive) heart failure; Z20.822 Contact with and (suspected) exposure to COVID-19; Z87.891 Personal history of nicotine dependence; Z79.01 Long term (current) use of anticoagulants; Z79.899 Other long term (current) drug therapy
CPT/HCPCS: 93454; 93799; 80048; 85025; 85610; 87635; C8925; C1887; C1894; C1769; J2250; J2001; J3010; J1644; Q9950; Q9967; 93312; 93571; 93572

== ENCOUNTER → 2022-04-03 | Outpatient (CLI) | payer MEDICARE | END | disposition home or self-care (01) | LOC: LABPAT 14:53 | PROVIDERS: ATTEND Thoracic Surgery (Cardiothoracic Vascular Surgery) | DX: I35.0 Nonrheumatic aortic (valve) stenosis (principal) | CPT/HCPCS: 80053; 83036; 83735; 83880; 84443; 85027; 85610; 85730; 86850; 86900; 86901; 87070 ==

== ENCOUNTER 2022-04-05 05:44 | Inpatient (IN) | payer MEDICARE ==
[2022-04-03 16:11] LABS: INR 1.1 (<1.2); Partial Thromboplastin Time 29.6 sec (22.0-30.0); Prothrombin Time 11.8 sec (9.0-12.0)
[2022-04-03 22:30] LABS: HCT 41.6 % (39.6-50.0); MCH 29.6 pg (27.0-32.0); MCHC 31.3 g/dL (32.0-37.0); MCV 94.8 fL (80.0-97.0); Mean Platelet Volume 12.3 fL (9.5-12.2); NRBC Per 100 WBC 0 /100 WBCS (0.0-0.0); Platelet Count 103 X 10*3/uL (140-440); RBC 4.39 X 10*6/uL (4.40-5.60); RDW 13.3 % (11.5-14.5); WBC 5.47 X 10*3/uL (4.50-10.00)
[2022-04-03 23:53] LABS: African American GFR (CKD) 71.4 (60.0-200.0); Albumin 4.1 g/dL (3.8-4.9); Anion Gap 12.5 mmol/L (10.00-18.00); BUN/Creat Ratio 18.62 Ratio (12.00-20.00); Blood Urea Nitrogen 20.3 mg/dL (9.0-27.0); Calcium 8.2 mg/dL (8.7-10.3); Carbon Dioxide 21.9 mmol/L (20.0-27.5); Magnesium 1.9 mg/dL (1.5-2.4); Non-African American GFR(CKD) 61.6 (60.0-200.0); Potassium 3.9 mmol/L (3.5-5.5); Total Bilirubin 0.6 mg/dL (0.30-1.20); Total Protein 6.1 g/dL (6.2-8.2)
[2022-04-05] MEDS ORDERED: NITROGLYCERIN-D5W PMX 25 MG/250 ML BTL IV PRN (06:00)
[2022-04-05] MEDS ORDERED: CLOPIDOGREL 75 MG TAB PO ONE ×2 (06:00→06:45)
[2022-04-05] MEDS ORDERED: SODIUM CHLORIDE 0.9% 500 ML 500 ML INTRAARTER PRN (06:00)
[2022-04-05] MEDS ORDERED: CLEVIDIPINE BUTYRATE 25 MG in EMPTY BAG 1 BAG IV PRN (06:00)
[2022-04-05] MEDS ORDERED: TRANEXAMIC ACID 2,000 MG in SODIUM CHLORIDE 0.9% 80 ML IV PRN (06:00)
[2022-04-05] MEDS ORDERED: METOPROLOL TARTRATE 12.5 MG TAB PO ONE (06:00)
[2022-04-05] MEDS ORDERED: ELECTROLYTE-A SOLUTION 1,000 ML with POTASSIUM CHLORIDE 100 MEQ, MAGNESIUM SULFATE 16 M... IV PRN ×5 (06:00)
[2022-04-05] MEDS ORDERED: INSULIN REGULAR 100 UNIT in SODIUM CHLORIDE 0.9% 100 ML IV PRN (06:00)
[2022-04-05] MEDS ORDERED: LACTATED RINGERS 1,000 ML IV SCH (06:00)
[2022-04-05] MEDS ORDERED: ATORVASTATIN 10 MG TAB PO ONE (06:00)
[2022-04-05] MEDS ORDERED: ASPIRIN 325 MG TAB PO ONE (06:00)
[2022-04-05] MEDS ORDERED: PROTAMINE SULFATE 250 MG in EMPTY BAG 1 BAG IV PRN (06:00)
[2022-04-05] MEDS ORDERED: SODIUM CHLORIDE 0.9% 1,000 ML IV ONE (06:30)
[2022-04-05] MEDS ORDERED: ASPIRIN 81 MG PO ONE (06:44)
[2022-04-05] MEDS ORDERED: ATORVASTATIN 80 MG TAB PO ONE (06:45)
[2022-04-05 06:46] LABS: INR 1.1 (<1.2); Prothrombin Time 11.7 sec (9.0-12.0)
[2022-04-05 06:48] LABS: Glucose,Whole Blood 97 mg/dL (70-110)
[2022-04-05] MEDS ORDERED: ROCURONIUM 10 MG/ML (5 ML VIAL) IV ONE (07:34)
[2022-04-05] MEDS ORDERED: HEPARIN SODIUM,PORCINE 10,000 UNIT/ML 1 ML VIAL ONE (07:34)
[2022-04-05] MEDS ORDERED: SUCCINYLCHOLINE CHLORIDE 100 MG/5 ML SYR IV ONE (07:34)
[2022-04-05] MEDS ORDERED: NEOSTIGMINE 1 MG/ML 10 ML VIAL ONE (07:34)
[2022-04-05] MEDS ORDERED: fentaNYL (PF) 50 MCG/ML 2 ML AMP ONE (07:34)
[2022-04-05] MEDS ORDERED: LIDOCAINE 2% INJ 20 MG/ML (2 ML VIAL) ONE (07:34)
[2022-04-05] MEDS ORDERED: ePHEDrine 50 MG/ML 1 ML VIAL ONE (07:34)
[2022-04-05] MEDS ORDERED: PHENYLEPHRINE-0.9% NACL SYG 1,000 MCG/10 ML SYRINGE ONE (07:34)
[2022-04-05] MEDS ORDERED: PROPOFOL 10 MG/ML 20 ML VIAL IV ONE (07:34)
[2022-04-05] MEDS ORDERED: PROTAMINE SULFATE 10 MG/ML 5 ML VIAL IV ONE (07:34)
[2022-04-05] MEDS ORDERED: GLYCOPYRROLATE 0.2 MG/ML 2 ML VIAL ONE (07:34)
[2022-04-05 07:38] LABS: Basophils # (A) 0.1 k/uL (0-0.2); Basophils % (A) 1 %; Eosinophils % (A) 1 %; HCT 42.5 % (39.0-53.0); HGB 13.9 gm/dL (13.0-17.5); Lymphocytes % (A) 16 %; MCH 31.2 pg (25.0-35.0); MCHC 32.7 g/dL (31.0-37.0); MCV 95.5 fL (80.0-100.0); Mean Platelet Volume 9.6; Monocytes # (A) 0.4 k/uL (0-1.0); Monocytes % (A) 7 %; Neutrophils # (A) 4.7 k/uL (1.3-7.7); Neutrophils % (A) 74 %; Platelet Count 119 k/uL (150-450); RBC 4.45 m/uL (4.30-5.90); RDW 13.1 % (11.5-15.5); WBC 6.4 k/uL (3.8-10.6)
--- NOTE | 2022-04-05 08:24 | XR ---
EXAMINATION TYPE: XR chest 1V portable DATE OF EXAM: 04/05/2022 COMPARISON: 08/06/2017 HISTORY: Congestion TECHNIQUE: Single frontal view of the chest is obtained. FINDINGS: Heart size is enlarged hyperexpansion is atrophic changes spine and throughout shoulders. Subsegmental changes both lung bases. Interstitium mildly prominent but stable. Chronic rib deformity noted involving the mid upper lateral rib cage. IMPRESSION: COPD and cardiomegaly
[2022-04-05] MEDS ORDERED: IOPAMIDOL-370 125ML BTL INJ ONE (08:53)
[2022-04-05] MEDS ORDERED: CALCIUM GLUCONATE IN NACL 2 GM in SALINE 1 100ML.BAG IVPB PRN (09:17)
[2022-04-05] MEDS ORDERED: Magnesium Replacement Protocol 1 EACH MISC MISCELLANE PRN ×2 (09:17→11:27)
[2022-04-05] MEDS ORDERED: IPRATROPIUM-ALBUTEROL 3 ML NEB INHALATION PRN (09:17)
[2022-04-05] MEDS ORDERED: NON FORMULARY DRUG (Omega-3/Dha/Epa/Fish Oil [Fish Oil 1,000 Mg Softgel] 1 EACH Capsule) PO SCH (09:17)
[2022-04-05] MEDS ORDERED: ONDANSETRON 4 MG/2 ML VIAL IVP PRN (09:17)
[2022-04-05] MEDS ORDERED: Potassium Replacement Protocol 1 EACH MISC MISCELLANE PRN (09:17)
[2022-04-05 09:49] LABS: Glucose,Whole Blood 96 mg/dL (70-110)
[2022-04-05] MEDS: LACTATED RINGERS 1,000 ML IV SCH (09:56)
[2022-04-05 10:05] LABS: Basophils % (A) 1 %; Eosinophils % (A) 1 %; HCT 35.5 % (39.0-53.0); HGB 11.8 gm/dL (13.0-17.5); Lymphocytes # (A) 0.8 k/uL (1.0-4.8); Lymphocytes % (A) 17 %; MCH 31.8 pg (25.0-35.0); MCHC 33.2 g/dL (31.0-37.0); MCV 95.8 fL (80.0-100.0); Mean Platelet Volume 10.1; Monocytes # (A) 0.2 k/uL (0-1.0); Monocytes % (A) 5 %; Neutrophils # (A) 3.5 k/uL (1.3-7.7); Neutrophils % (A) 76 %; Platelet Count 104 k/uL (150-450); RBC 3.71 m/uL (4.30-5.90); WBC 4.6 k/uL (3.8-10.6)
[2022-04-05] MEDS: ZINC SULFATE 220 MG CAP PO SCH (10:12)
[2022-04-05] MEDS: ASCORBIC ACID 500 MG TAB PO SCH (10:12)
[2022-04-05] MEDS: VIT A,C & E-LUTEIN-MINERALS 1 EACH TAB PO SCH (10:12)
[2022-04-05] MEDS: CHOLECALCIFEROL 25 MCG (1000 IU) TABLET PO SCH (10:12)
[2022-04-05] MEDS: LOSARTAN 25 MG TAB PO SCH (10:12)
[2022-04-05 10:17] LABS: INR 1.1 (<1.2); Partial Thromboplastin Time 43.7 sec (22.0-30.0); Prothrombin Time 11.7 sec (9.0-12.0)
[2022-04-05 10:21] LABS: Ionized Calcium 4.5 mg/dL (4.5-5.3)
[2022-04-05 10:38] LABS: ALT 19 U/L (4-49); AST 33 U/L (17-59); African American GFR (CKD) >90 (>60 ml/min/1.73 sqM); Alkaline Phosphatase 55 U/L (38-126); Anion Gap 7 mmol/L; Blood Urea Nitrogen 14 mg/dL (9-20); Calcium 7.2 mg/dL (8.4-10.2); Carbon Dioxide 25 mmol/L (22-30); Chloride 106 mmol/L (98-107); Glucose 97 mg/dL (74-99); Magnesium 1.8 mg/dL (1.6-2.3); Non-African American GFR(CKD) 80 (>60 ml/min/1.73 sqM); Potassium 3.7 mmol/L (3.5-5.1); Sodium 138 mmol/L (137-145); Total Protein 5.4 g/dL (6.3-8.2)
--- NOTE | 2022-04-05 11:07 | XR ---
EXAMINATION TYPE: XR chest 1V portable DATE OF EXAM: 04/05/2022 COMPARISON: 04/05/2022 HISTORY: Postcardiac surgery TECHNIQUE: Single frontal view of the chest is obtained. FINDINGS: Heart size is enlarged hyperexpansion is atrophic changes spine and throughout shoulders. Subsegmental changes both lung bases. Interstitium mildly prominent but stable. Chronic rib deformity noted involving the bilateral rib cage. Nodule seen in the left upper lobe measuring 8 mm. IMPRESSION: 1. Cardiomegaly with COPD and chronic interstitial pulmonary fibrosis. 2. Left upper lobe pulmonary nodules.
[2022-04-05] MEDS ORDERED: hydrALAZINE HCL 20 MG/ML 1 ML VIAL IVP PRN (11:24)
[2022-04-05] MEDS ORDERED: guaiFENesin 600 MG TABLET.ER PO PRN (11:25)
[2022-04-05] MEDS: MAGNESIUM SULFATE-D5W PMX 1 GM in DEXTROSE/WATER 1 100ML.BAG IVPB SCH ×2 (11:42→16:10)
--- NOTE | 2022-04-05 11:45 | P.CNPUL ---
History of Present Illness Consult date: 04/05/22 Requesting physician: Berry Dorado Reason for consult: dyspnea, hypoxemia Chief complaint: Valvular heart disease. History of present illness: Pulmonary consult dated 04/05/2022. 86-year-old male, who was seen in the ICU, room 263, status post transcatheter aortic valve replacement, for aortic stenosis. The patient was evaluated by cardiology. The patient was found have significant and hemodynamically significant aortic stenosis, and hence, the patient underwent transcatheter aortic valve replacement today. The patient's resting comfortably in the ICU. The patient is not on any supplemental oxygen. The patient's getting lactated Ringer's at 50 mL an hour. The patient has a history of atrial fibrillation, coronary disease, hypertension, dyslipidemia, heart failure, preserved ejection fraction, and bifascicular block. His symptoms included primarily shortness of breath on exertion. White count was 4.6, hemoglobin 11.8, hematocrit 35.5, platelet count 204,000. PTT was 43.7. Electrolyte profile was normal although calcium was low at 7.2. Albumin was 3. N-terminal proBNP 1770. TSH was normal. Chest x-ray showed evidence of cardiomegaly. Review of Systems REVIEW OF SYSTEMS: CONSTITUTIONAL: [Negative.] NEUROLOGIC: [ Negative.] HEENT: [ Negative.] CARDIAC: [Negative.] PULMONARY: Shortness of breath on exertion. GI: [Negative.] : [Negative.] RHEUMATOLOGIC: [ Negative.] IMMUNOLOGIC: [ Negative.] ENDOCRINE: [Negative. ] DERMATOLOGIC: [Negative.] Past Medical History Past Medical History: Atrial Fibrillation, Eye Disorder, Hypertension, Myocardial Infarction (NH), Osteoarthritis (OA), Pneumonia, Prostate Disorder Additional Past Medical History / Comment(s): chronic Afib, had pneumonia 15 yrs. 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, colon p olyp/diverticular dx, NH 1997 per stress test, gastric ulcer Last Myocardial Infarction Date:: 1997 History of Any Multi-Drug Resistant Organisms: None Reported Past Surgical History: Adenoidectomy, Heart Catheterization, Hernia Repair, Orthopedic Surgery, Tonsillectomy Additional Past Surgical History / Comment(s): R inguinal hernia repair, ORIF L hip & then replacement 2016, hemorrhoidectomy, colonoscopy Past Anesthesia/Blood Transfusion Reactions: No Reported Reaction Smoking Status: Former smoker - Past Family History Mother Family Medical History: No Reported History Additional Family Medical History / Comment(s): Mother was executed in [place]. Sister(s) Family Medical History: No Reported History Additional Family Medical History / Comment(s): Sister was executed in [place]. Father Family Medical History: CVA/TIA, Myocardial Infarction (NH) Medications and Allergies Home Medications Medication Instructions Recorded Confirmed Type Tamsulosin HCl [Flomax] 0.4 mg PO DAILY 08/06/17 04/05/22 History Furosemide [Lasix] 20 mg PO DAILY 02/27/22 04/05/22 History Losartan Potassium [Cozaar] 25 mg PO DAILY 02/27/22 04/05/22 History Potassium Chloride [Potassium 10 meq PO DAILY 02/27/22 04/05/22 History Chloride ER] Warfarin [Coumadin] 7.5 mg PO DAILY 02/27/22 04/05/22 History Ascorbic Acid [Vitamin C] 1,000 mg PO DAILY 04/03/22 04/05/22 History Cholecalciferol [Vitamin D3 (25 25 mcg PO DAILY 04/03/22 04/05/22 History Mcg = 1000 Iu)] Osteen-3/Dha/Epa/Fish Oil [Fish Oil 1 each PO DAILY 04/03/22 04/05/22 History 1,000 mg Softgel] Vitc/E/Zinc/Copper/Lutein/Zeax 1 each PO DAILY 04/03/22 04/05/22 History [Icaps Areds2 Tablet] Zinc 50 mg PO DAILY 04/03/22 04/05/22 History Allergies Allergy/AdvReac Type Severity Reaction Status Date / Time banana Allergy Unknown Verified 04/05/22 06:11 Milk Containing Products Allergy Unknown Verified 04/05/22 06:11 [Dairy] Physical Exam Osteopathic Statement: *. No significant issues noted on an osteopathic structural exam other than those noted in the History and Physical/Consult. Vitals: Vital Signs Temp Pulse Pulse Resp BP BP Pulse Ox 04/05/22 11:00 62 19 95 04/05/22 10:45 51 L 34 H 96 04/05/22 10:30 52 L 17 94 L 04/05/22 10:15 59 L 25 H 90 L 04/05/22 10:00 60 17 94 L 04/05/22 09:45 98.1 F 55 L 12 93 L 04/05/22 09:32 55 L 04/05/22 06:30 98 F 82 18 150/72 154/71 96 Intake and Output 04/04/22 04/05/22 04/05/22 22:59 06:59 14:59 Intake Total 100 900 Balance 100 900 Intake: IV 100 900 Lactated Ringers 1,000 ml 100 @ 50 mls/hr IV .Q20H BRIA Rx#:[id number] Other: Weight 94.9 kg ABP, PAP, CO, CI - Last 8 Hours Arterial Blood Pressure 162/61 Arterial Blood Pressure 143/56 Arterial Blood Pressure 146/56 Arterial Blood Pressure 138/58 Arterial Blood Pressure 134/55 Arterial Blood Pressure 138/36 No acute distress, oriented 3. Currently on room air. HEENT examination is grossly unremarkable. Neck supple. Full range of motion. No adenopathy thyromegaly or neck vein distention. Cardiovascular examination reveals regular rhythm rate. S1-S2 normal. No S3 or S4. No discernible murmur noted. Heart rate 62 bpm. Lungs reveal clear breath sounds. Breath sounds are equal bilaterally. No adventitious lung sounds including wheezes rhonchi or crackles. Abdomen soft bowel sounds are heard. No masses or tenderness. Extremities are intact. No cyanosis clubbing or edema. Skin is without rash or lesion. Neurologic examination is brief but nonfocal. Results - Laboratory Findings CBC and BMP: 04/05/22 09:45 04/05/22 09:45 PT/INR, D-dimer PT 11.7 sec (9.0-12.0) 04/05/22 09:45 INR 1.1 (<1.2) 04/05/22 09:45 Abnormal lab findings: Abnormal Labs 04/03/22 04/03/22 04/05/22 15:04 15:04 06:15 RBC 4.39 L Hgb Hct MCHC 31.3 L Plt Count 103 L 119 L MPV 12.3 H Lymphocytes # APTT Glucose 141 H Calcium 8.2 L AST 37 H Total Protein 6.1 L Albumin 04/05/22 04/05/22 04/05/22 09:45 09:45 09:45 RBC 3.71 L Hgb 11.8 L Hct 35.5 L MCHC Plt Count 104 L MPV Lymphocytes # 0.8 L APTT 43.7 H Glucose Calcium 7.2 L AST Total Protein 5.4 L Albumin 3.0 L - Diagnostic Findings Chest x-ray: image reviewed Assessment and Plan Assessment: Postop day #0, S/P transcatheter aortic valve replacement (TAVR) for aortic stenosis. History of chronic atrial fibrillation. History of hypertension. History of CAD. History of dyslipidemia. History of heart failure with preserved ejection fraction. History of bifascicular block. Plan: Plan dated 04/05/2022 The patient's resting comfortably in the intensive care unit. He is getting lactated Ringer's at 50 mL an hour. Labs, x-rays, and medications are reviewed. The patient is not requiring any supplemental oxygen. We will continue to follow. Probable discharge tomorrow. No additional recommendations are made. Time with Patient: Greater than 30
[2022-04-05] MEDS ORDERED: POTASSIUM CHLORIDE ER 20 MEQ TAB.ER PO SCH (12:00)
[2022-04-05 12:15] VITALS: BMI 31.8
--- NOTE | 2022-04-05 13:16 | P.ANPRN ---
Procedure Note - Anesthesia - SHAWNEE Intraop Pre Bypass SHAWNEE Intraop - Anesthesia Indication: Transcatheter aortic valve replacement surgery Date of Procedure: 04/05/22 Pre-operative Diagnosis: Severe aortic stenosis Post-operative Diagnosis: Severe aortic stenosis status post-aortic valve replacement Surgeon: Yo Mendiola Left Ventricle: Ejection fraction 55-60%. There is mild- moderate LVH Left Ventricle Hypertrophy: Yes R. Ventricle Function: Normal Aortic Valve: Severely calcified aortic valve with severe stenosis present. Peak gradient 49 mm of hg and mean gradient 26 mm of hg. Aortic valve area 0.6 cm2 Anatomy: Trileaflet Aortic Stenosis: Severe Aortic Regurgitation: Trace Mitral Stenosis: Mild Tricuspid Regurgitation: Trace Pulmonic Stenosis: None Pulmonic Regurgitation: None R. Atrial Dilation: No R. Atrial PFO: No L. Atrial Dilation: Yes (Mild) Aortic Dissection: No Aortic Calcification: None Plural Effusion: None - SHAWNEE Intraop Post Bypass SHAWNEE Intraop Post Bypass Procedure Performed: Transcatheter aortic valve replacement Left Ventricle: Ejection fraction 50-55 Ejection Fraction: Normal Regional Wall Motion Abnormalities: None R. Ventricle Function: Normal Aortic Valve: Prosthetic aortic valve seen. Appears to be seated well. Trace para valvular regurgitation noted. Prosthetic valve peak gradient is 12 mmHg and mean gradient 8 mmHg Mitral Valve: Unchanged Tricuspid: Unchanged Pulmonic: Unchanged Aortic Dissection: No
--- NOTE | 2022-04-05 13:21 | P.OP ---
Date of Procedure: 04/05/22 Preoperative Diagnosis: Symptomatic tricuspid calcific aortic stenosis Postoperative Diagnosis: Same Procedure(s) Performed: Transcatheter aortic valve replacement with 34 mm Medtronic Evolute Pro-plus core valve via percutaneous right transfemoral approach Implants: 34 mm evolute Pro plus core valve Anesthesia: SIGRID Surgeon: Yo Mendiola Contracts Advisor #1: Berry Dorado Estimated Blood Loss (ml): 10 Pathology: none sent Condition: stable Disposition: ICU Indications for Procedure: 86-year-old male with symptomatic aortic stenosis presents for elective transcatheter aortic valve replacement. He was evaluated in the high risk valve clinic and felt to be appropriate for transcatheter aortic valve implantation Operative Findings: Transvalvular gradients were significant. The valve was crossed with relative ease. Final echocardiography demonstrated trivial to no periaortic valvular leak with minimal gradient across the aortic valve. Completion angiography showed excellent flow through the femoral artery with no evidence of leak at the right femoral puncture site. Description of Procedure: Patient was brought to the catheterization laboratory. General anesthesia was induced. Bilateral groins and chest were sterilely prepped and draped. 18- gauge needle was used to puncture the right subclavian vein and introducer sheath was placed. Through this a screw-in ventricular lead was manipulated into the apex of the right ventricle. It was secured to the skin at its exit site. Pacing thresholds were below 1 V. Bilateral femoral access in bilateral common femoral arteries was obtained by Dr. Dorado under ultrasound guidance. On the left a 6-Equatorial [place]ine[place] sheath was then exchanged for a long 6-Equatorial [place] sheath which was advanced up into the descending thoracic aorta. On the right 6-[place] sheath was placed and then 2 Perclose devices were deployed. An 8-[place] sheath was then placed. The patient was systemically heparinized. Pigtail catheter was passed from the left and positioned in the non-coronary sinus of the aortic root. Stiff wire was placed on the right and the 8-Equatorial [place] sheath was exchanged for a 14-Equatorial [place] sheath. Through this the valve was crossed with a straight wire. Pigtail catheter was positioned in the apex of the left ventricle and transvalvular gradients were measured. Lunderquist wire was positioned in the apex of the ventricle. A 34 mm core valve had been loaded on the back table and was brought up onto the field. The 14-Equatorial [place] sheath was exchanged for the core valve delivery system after fluoroscopic check of the valve loading. Core valve delivery system was advanced around the aortic arch and then across the aortic valve. Core valve was deployed under rapid ventricular pacing with good deployment levels. The delivery system and wire were pulled back and SHAWNEE demonstrated only trivial paravalvular leak. Valve was opening well and appeared to be well expanded. Gradients were minimal. Heparin was reversed with protamine and the valve deployment system was removed. Perclose devices were deployed with good hemostasis. Completion femoral angiography of the left iliofemoral region showed good flow with trivial narrowing and no evidence of leak. Perclose device was deployed on the left and the 6-Equ[place] sheath was removed and Perclose device utilized for excellent hemostasis on that side as well. Patient remained hemodynamically stable throughout. Blood loss was minimal. Patient was transferred to the ICU after extubation.
--- NOTE | 2022-04-05 16:18 | P.PCN ---
Date of Procedure: 04/05/22 Operative Findings: TRANSCATHETER AORITC VALVE REPLACEMENT OPERATIVE REPORT PROCEDURE PERFORMED: 1. Percutaneous Aortic Valve Implantation using a 34 mm Core-Valve Evolut-Pro Plus. 2. Transesophageal echocardiography (performed by anesthesia) 3. Ultrasound guided access and repair of right femoral artery access site by Perclose closure device. 4. Placement of temporary pacemaker wire. 5. Aortic root angiography INDICATIONS: 1. 86-year-old year-old with a history of severe symptomatic aortic valve stenosis. 2. Patient was experiencing shortness of breath with exertion consistent was NYHA class II and sometimes class III PERFORMING PHYSICIANS: 1. Berry Dorado MD Interventional Cardiology. 2. Yo Duran MD, Cardiothoracic Surgeon. 3. Windy Powell MD Proctoring Interventional cardiology SEDATION: General anesthesia provided by anesthesia, see separate note APPROACH: Right and left femoral artery via percutaneous approach PROCEDURE DESCRIPTION: The patient was discussed at valve clinic with multidisciplinary approach with cardiothoracic surgeon as well as editor greeting card and thought better treated with TAVR. Risks, benefits, and alternatives of the procedure had been explained to the patient who understood the risks and agreed to proceed. After consents were obtained, patient was brought to the transcatheter aortic valve implantation room in the cardiac stores laborer and general anesthesia was provided by the anesthesiologist (see separate report). Once full body sterile prep was performed, right subclavian venous access was obtained and a temporary pacemaker was screwed in, performed by cardiothoracic surgery. Pacing threshholds were checked and deemed appropriate. Next the left femoral artery waw accessed using a modified Seldinger technique, ultrasound guidance and micropuncture technique. A 6 [place] Rabi sheath was placed in the left femoral artery. Next, a 6-Kazakh pigtail catheter was advanced into the aorta and positioned in the aortic root, aortic root angiography was performed to determine optimal deployment angle. The right femoral artery was accessed using modified Seldinger technique, micropuncture technique and under direct ultrasound guidance. Femoral angiogram was done showing access in the common femoral artery and a 6Fr sheath was placed. Next preclose technique was performed using a two Perclose. Next a 0.035 Lunderquist wire was placed in the Aorta via a pigtail catheter. Over that the arteriotomy was serially dilated and a 18 Fr [place] sheath was placed. Next a 6F- AL1 catheter was advanced over a wire to the aortic root. A straight wire was advanced through the catheter and used to cross the severely stenotic valve. The AL1 was then exchanged for a 6Fr pigtail catheter and pressure measurements were obtained. The 0.035 Lunderquist wire was then positioned in the apex. Next a 34 mm Corevalve Evolut-Pro Plus was advanced. The valve was then positioned across the aortic valve and confirmed with aortic root angiography. [The valve was initially partially deployed however needed repositioning and therefore was recaptured.] The valve was then deployed in proper position using slow deployment and with rapid pacing in conjuncture with aortic root angiography and SHAWNEE. The delivery system was withdrawn back into the arch and an aortic root injection in conjunction with SHAWNEE demonstrated a satisfactory result. There was trivial para valvular leak. There was no evidence of any other significant abnormalities. The preclose Perclose was then deployed in the right common femoral artery and hemostasis was achieved. The pigtail was then advanced to the level of the iliac bifurcation via the left femoral access. Femoral angiogram was performed that showed no contrast leak. The right femoral angiogram demonstrated an arteriotomy in the common femoral artery and this was repaired using a 6F angioseal device with complete hemostasis. The temporary venous pacemaker was sutured in place. The patient was then transported to the ICU in hemodynamically stable condition, requiring no pressor support. COMPLICATIONS: None CONCLUSION: 1. Implantaion of 34 Core-Valve Evolut-Pro Plus transcatheter aortic valve via right femoral approach under SHAWNEE and fluoro guidance with minor shukri-valvular aortic regurgitation. 2. Placement of temporary pacemaker wire 3. Aortic Root Aortogram. RECOMMENDATIONS: The patient will be monitored in the ICU for hemodynamic and electrical stability. Patient will be on aspirin and Plavix.
[2022-04-05 16:51] LABS: Glucose,Whole Blood 108 mg/dL (70-110)
[2022-04-05] MEDS ORDERED: WARFARIN 7.5 MG TAB PO SCH (18:00)
[2022-04-05] MEDS: ACETAMINOPHEN TAB 325 MG TAB PO PRN (20:14)
[2022-04-05] MEDS ORDERED: TAMSULOSIN 0.4 MG CAP.ER.24H PO SCH (21:00)
[2022-04-05 21:17] LABS: Glucose,Whole Blood 115 mg/dL (70-110)
[2022-04-05] MEDS: HEPARIN SODIUM,PORCINE/PF 5,000 UNIT/0.5 ML SYRINGE SQ SCH (23:59)
[2022-04-06] MEDS: ACETAMINOPHEN TAB 325 MG TAB PO PRN (03:21)
[2022-04-06 06:38] LABS: Glucose,Whole Blood 98 mg/dL (70-110)
[2022-04-06] MEDS ORDERED: PANTOPRAZOLE 40 MG TABLET PO SCH (07:30)
[2022-04-06] MEDS: CHOLECALCIFEROL 25 MCG (1000 IU) TABLET PO SCH (08:05)
[2022-04-06] MEDS: ZINC SULFATE 220 MG CAP PO SCH (08:05)
[2022-04-06] MEDS: HEPARIN SODIUM,PORCINE/PF 5,000 UNIT/0.5 ML SYRINGE SQ SCH (08:05)
[2022-04-06] MEDS: ASCORBIC ACID 500 MG TAB PO SCH (08:05)
[2022-04-06] MEDS: VIT A,C & E-LUTEIN-MINERALS 1 EACH TAB PO SCH (08:06)
[2022-04-06] MEDS: LOSARTAN 25 MG TAB PO SCH (08:06)
--- NOTE | 2022-04-06 08:13 | XR ---
EXAMINATION TYPE: XR chest 1V portable DATE OF EXAM: 04/06/2022 COMPARISON: 04/05/2022 HISTORY: Pain TECHNIQUE: Single frontal view of the chest is obtained. FINDINGS: Heart size is enlarged hyperexpansion is atrophic changes spine and throughout shoulders. Subsegmental changes both lung bases. Interstitium mildly prominent but stable. Chronic rib deformity noted involving the bilateral rib cage. Nodule seen in the left upper lobe measuring 8 mm. IMPRESSION: 1. Stable findings compatible COPD and cardiomegaly. 2. Left upper lobe pulmonary nodule
[2022-04-06 08:40] LABS: Basophils # (A) 0.1 k/uL (0-0.2); Basophils % (A) 1 %; Eosinophils # (A) 0.1 k/uL (0-0.7); Eosinophils % (A) 1 %; HCT 44.2 % (39.0-53.0); HGB 13.9 gm/dL (13.0-17.5); Lymphocytes # (A) 0.7 k/uL (1.0-4.8); Lymphocytes % (A) 10 %; MCH 30.8 pg (25.0-35.0); MCHC 31.4 g/dL (31.0-37.0); MCV 98.1 fL (80.0-100.0); Mean Platelet Volume 9.1; Monocytes # (A) 0.4 k/uL (0-1.0); Monocytes % (A) 7 %; Neutrophils # (A) 5.1 k/uL (1.3-7.7); Neutrophils % (A) 80 %; Platelet Count 119 k/uL (150-450); RDW 13.1 % (11.5-15.5); WBC 6.4 k/uL (3.8-10.6)
[2022-04-06 08:41] LABS: Ionized Calcium 4.4 mg/dL (4.5-5.3)
[2022-04-06 08:58] VITALS: TEMP 98.2
[2022-04-06 08:58] LABS: ALT 21 U/L (4-49); African American GFR (CKD) >90 (>60 ml/min/1.73 sqM); Albumin 3.8 g/dL (3.5-5.0); Anion Gap 9 mmol/L; Blood Urea Nitrogen 11 mg/dL (9-20); Calcium 8.1 mg/dL (8.4-10.2); Carbon Dioxide 26 mmol/L (22-30); Chloride 104 mmol/L (98-107); Glucose 124 mg/dL (74-99); Non-African American GFR(CKD) 82 (>60 ml/min/1.73 sqM); Sodium 139 mmol/L (137-145); Total Bilirubin 1.2 mg/dL (0.2-1.3); Total Protein 6.5 g/dL (6.3-8.2)
[2022-04-06] MEDS: LACTATED RINGERS 1,000 ML IV SCH (08:59)
[2022-04-06] MEDS ORDERED: FUROSEMIDE 20 MG TAB PO SCH (09:00)
[2022-04-06] MEDS ORDERED: ATORVASTATIN 40 MG TAB PO SCH (09:00)
[2022-04-06] MEDS ORDERED: METOPROLOL TARTRATE 12.5 MG TAB PO SCH (09:00)
[2022-04-06] MEDS ORDERED: POTASSIUM CHLORIDE ER 10 MEQ TAB.ER.PRT PO SCH (09:00)
[2022-04-06] MEDS ORDERED: CLOPIDOGREL 75 MG TAB PO SCH (09:00)
[2022-04-06] MEDS ORDERED: bisacodyL 10 MG SUPP RECTAL PRN (09:00)
[2022-04-06] MEDS ORDERED: MAGNESIUM HYDROXIDE 2,400 MG/10 ML CUP PO PRN (09:00)
[2022-04-06 09:12] LABS: Potassium 4.8 mmol/L (3.5-5.1)
[2022-04-06 09:13] LABS: AST 47 U/L (17-59); Alkaline Phosphatase 51 U/L (38-126); Magnesium 2.1 mg/dL (1.6-2.3)
--- NOTE | 2022-04-06 09:15 | P.PN ---
Subjective Progress Note Date: 04/06/22 Principal diagnosis: Aortic stenosis. Pulmonary consult dated 04/05/2022. 86-year-old male, who was seen in the ICU, room 263, status post transcatheter aortic valve replacement, for aortic stenosis. The patient was evaluated by cardiology. The patient was found have significant and hemodynamically significant aortic stenosis, and hence, the patient underwent transcatheter aortic valve replacement today. The patient's resting comfortably in the ICU. The patient is not on any supplemental oxygen. The patient's getting lactated Ringer's at 50 mL an hour. The patient has a history of atrial fibrillation, coronary disease, hypertension, dyslipidemia, heart failure, preserved ejection fraction, and bifascicular block. His symptoms included primarily shortness of breath on exertion. White count was 4.6, hemoglobin 11.8, hematocrit 35.5, platelet count 204,000. PTT was 43.7. Electrolyte profile was normal although calcium was low at 7.2. Albumin was 3. N-terminal proBNP 1770. TSH was normal. Chest x-ray showed evidence of cardiomegaly. Progress note dated 04/06/2022. 86-year-old male, postop day #1, status post transcatheter aortic valve replacement the patient had an uneventful night. He's on room air. He's on any IV fluids. According to the nurses, he had no issues overnight. CBC shows a white count 6.4, hemoglobin 13.9, hematocrit 44.2, and a platelet count of 119,000. The comprehensive metabolic profile is essentially normal except for a glucose of 124, calcium 8.1, and an ionized calcium of 4.4. Chest x-ray shows COPD, and cardiomegaly. Objective - Vital Signs Vital signs: Vital Signs Temp 98.2 F 04/06/22 08:30 Pulse 70 04/06/22 09:00 Resp 31 H 04/06/22 09:00 BP 153/88 04/06/22 09:00 Pulse Ox 94 L 04/06/22 08:30 FiO2 Intake & Output 04/05/22 04/06/22 04/06/22 18:59 06:59 18:59 Intake Total 1500 1010 50 Output Total 1 3300 Balance 1499 -2290 50 Weight 94.9 kg 95.8 kg Intake: IV 1500 650 50 Lactated Ringers 1,000 ml 450 550 50 @ 50 mls/hr IV .Q20H [facility] Rx#:[id number] Magnesium Sulfate-D5w Pmx 200 1 gm In Dextrose/Water 1 100ml.bag @ 100 mls/hr IVPB Q1H [facility] Rx#: [id number] ceFAZolin 2 gm In Sodium 50 100 Chloride 0.9% 50 ml @ 100 mls/hr IVPB ONCE ONE Rx# :[id number] Tube Feeding 360 Output: Urine 0 3300 Urine/Stool Mix 1 Other: Voiding Method Urinal Toilet Toilet # Bowel Movements 1 ABP, PAP, CO, CI - Last Documented Arterial Blood Pressure 171/65 - Exam No acute distress, oriented 3. Currently on room air. Room air saturation 94%. HEENT examination is grossly unremarkable. Neck supple. Full range of motion. No adenopathy thyromegaly or neck vein distention. Cardiovascular examination reveals regular rhythm rate. S1-S2 normal. No S3 or S4. No discernible murmur noted. Heart rate 70 bpm. Lungs reveal clear breath sounds. Breath sounds are equal bilaterally. No adventitious lung sounds including wheezes rhonchi or crackles. Abdomen soft bowel sounds are heard. No masses or tenderness. Extremities are intact. No cyanosis clubbing or edema. Skin is without rash or lesion. Neurologic examination is brief but nonfocal. - Labs CBC & Chem 7: 04/06/22 08:12 04/05/22 09:45 Labs: Abnormal Lab Results - Last 24 Hours (Table) 04/05/22 04/05/22 04/05/22 Range/Units 09:45 09:45 09:45 RBC 3.71 L (4.30-5.90) m/uL Hgb 11.8 L (13.0-17.5) gm/dL Hct 35.5 L (39.0-53.0) % Plt Count 104 L (150-450) k/uL Lymphocytes # 0.8 L (1.0-4.8) k/uL APTT 43.7 H (22.0-30.0) sec POC Glucose (mg/dL) (70-110) mg/dL Calcium 7.2 L (8.4-10.2) mg/dL Ionized Calcium Luisito (4.5-5.3) mg/dL Total Protein 5.4 L (6.3-8.2) g/dL Albumin 3.0 L (3.5-5.0) g/dL 04/05/22 04/06/22 04/06/22 Range/Units 21:15 08:12 08:12 RBC (4.30-5.90) m/uL Hgb (13.0-17.5) gm/dL Hct (39.0-53.0) % Plt Count 119 L (150-450) k/uL Lymphocytes # 0.7 L (1.0-4.8) k/uL APTT (22.0-30.0) sec POC Glucose (mg/dL) 115 H (70-110) mg/dL Calcium (8.4-10.2) mg/dL Ionized Calcium Luisito 4.4 L (4.5-5.3) mg/dL Total Protein (6.3-8.2) g/dL Albumin (3.5-5.0) g/dL Assessment and Plan Assessment: Postop day #1, S/P transcatheter aortic valve replacement (TAVR) for aortic stenosis. History of chronic atrial fibrillation. History of hypertension. History of CAD. History of dyslipidemia. History of heart failure with preserved ejection fraction. History of bifascicular block. Plan: Plan dated 04/05/2022 The patient's resting comfortably in the intensive care unit. He is getting lactated Ringer's at 50 mL an hour. Labs, x-rays, and medications are reviewed. The patient is not requiring any supplemental oxygen. We will continue to follow. Probable discharge tomorrow. No additional recommendations are made. Plan dated 04/06/2022. The patient is currently on room air. He's not receiving any IV fluids. The patient's doing very well. He likely will be discharged today. Labs, x-rays, and medications are reviewed. No additional recommendations are made. Prognosis is thought to be generally good. Time with Patient: Less than 30
--- NOTE | 2022-04-06 09:56 | P.DS ---
Providers Date of admission: 04/05/22 05:44 Expected date of discharge: 04/06/22 Attending physician: Berry Dorado Consults: 04/05/22 06:00 Consult to Anesthesia Routine Consulting Provider: Anesthesia,Services Consult Reason/Comments: Cardiac Surgery Pre-Op 04/05/22 09:17 Consult Physician Routine Consulting Provider: Best Gasca Consult Reason/Comments: Lump Maker Consult: post cardiac surgery Do you want consulting provider notified?: Yes Consult Physician Routine Consulting Provider: Yo Mendiola Consult Reason/Comments: Chlorination Operator Consult: post cardiac surgery Do you want consulting provider notified?: Yes Primary care physician: [facility] Course: MEDICAL HISTORY: 1. Calcified aortic valve with severe symptomatic aortic valve stenosis 2. Shortness of breath with exertion consistent with an NYHA class II and symptoms class III 3. Persistent atrial fibrillation on Coumadin 4. Hypertension 5. BPH 6. Previous tobacco dependence with COPD 7. Bilateral internal carotid artery stenosis 50-79% PROCEDURE: 1. Percutaneous aortic valve implantation using a 34 mm Core Valve Evolute-Pro Plus 2. Transesophageal echocardiography performed by anesthesia 3. Ultrasound-guided access and repair of right femoral artery access site by Perclose closure device 4. Placement of temporary pacemaker wire 5. Aortic root angiography HISTORY OF PRESENT ILLNESS: This is a 86-year-old gentleman who follows on an outpatient basis with Dr. Joy for primary care and Dr. García for cardiology. He has a known history of severe aortic stenosis and has been symptomatic with increased exertional dyspnea as well as occasional chest pain and lower extremity edema. He had been referred to structural heart clinic for evaluation for transcatheter aortic valve replacement after heart catheterization and transesophageal echocardiogram were completed. Echocardiography demonstrated normal systolic function with EF 50-55%, aortic valve area 0.6-0.7 cm with a peak/mean gradient 67/35 mmHg. Heart catheterization showed 20% left main, 60-70% mid LAD, 60-70% circumflex, and 50- 60% RCA stenosis with iFr of the circumflex normal at 0.92 and iFr of the LAD abnormal at 0.89. After workup was completed STS risk score was calculated along with incremental risk and the patient was felt to be a good candidate for transcatheter aortic valve replacement. The usual course of TAVR was discussed in detail the patient, risks and benefits were reviewed, shared decision making between cardiology, surgery, and the patient/family took place, and the patient consented to proceed with the procedure. HOSPITAL COURSE: The patient was brought to the hospital on 04/05/2022, was taken to the extended stay area, prepared in the usual fashion, and subsequently taken to the cardiac catheterization laboratory where Dr. Dorado and Dr. Mendiola completed TAVR procedure under general anesthesia with fluoroscopy and SHAWNEE. The valve was deployed under rapid ventricular pacing and proceeded without event. At the end of the procedure there was no significant gradient, hemodynamics were felt to be acceptable, and there was trace perivalvular leak. Upon completion of the procedure the patient was extubated and was transferred to the cardiovascular intensive care unit where he was recovered and monitored hemodynamically. His oxygen was titrated down, he was tolerating oral diet, his pain was controlled, follow-up TTE demonstrated normal left ventricular systolic function as well as functioning bioprosthetic valve and no significant perivalvular leak, and he was ready to be discharged to home on postoperative day #1. He received written and verbal instruction regarding his medications, activity restrictions, signs and symptoms requiring physician notification, and follow-up appointments. Patient Condition at Discharge: Stable Plan - Discharge Summary Discharge Rx Participant: Yes New Discharge Prescriptions: New guaiFENesin [Mucinex] 600 mg PO Q12HR PRN tab PRN Reason: Congestion Clopidogrel [Plavix] 75 mg PO DAILY #30 tab Acetaminophen Tab [Tylenol] 650 mg PO Q4HR PRN tab PRN Reason: Fever And/ Or Mild Pain (1-3) Continue Tamsulosin HCl [Flomax] 0.4 mg PO DAILY Warfarin [Coumadin] 7.5 mg PO DAILY Furosemide [Lasix] 20 mg PO DAILY Cholecalciferol [Vitamin D3 (25 Mcg = 1000 Iu)] 25 mcg PO DAILY Zinc 50 mg PO DAILY Vitc/E/Zinc/Copper/Lutein/Zeax [Icaps Areds2 Tablet] 1 each PO DAILY [place]-3/Dha/Epa/Fish Oil [Fish Oil 1,000 mg Softgel] 1 each PO DAILY Potassium Chloride [Potassium Chloride ER] 10 meq PO DAILY Losartan Potassium [Cozaar] 25 mg PO DAILY Ascorbic Acid [Vitamin C] 1,000 mg PO DAILY Discharge Medication List Tamsulosin HCl [Flomax] 0.4 mg PO DAILY 08/06/17 [History] Furosemide [Lasix] 20 mg PO DAILY 02/27/22 [History] Losartan Potassium [Cozaar] 25 mg PO DAILY 02/27/22 [History] Potassium Chloride [Potassium Chloride ER] 10 meq PO DAILY 02/27/22 [History] Warfarin [Coumadin] 7.5 mg PO DAILY 02/27/22 [History] Ascorbic Acid [Vitamin C] 1,000 mg PO DAILY 04/03/22 [History] Cholecalciferol [Vitamin D3 (25 Mcg = 1000 Iu)] 25 mcg PO DAILY 04/03/22 [History] [place]-3/Dha/Epa/Fish Oil [Fish Oil 1,000 mg Softgel] 1 each PO DAILY 04/03/22 [History] Vitc/E/Zinc/Copper/Lutein/Zeax [Icaps Areds2 Tablet] 1 each PO DAILY 04/03/22 [History] Zinc 50 mg PO DAILY 04/03/22 [History] Acetaminophen Tab [Tylenol] 650 mg PO Q4HR PRN tab 04/06/22 [Rx] Clopidogrel [Plavix] 75 mg PO DAILY #30 tab 04/06/22 [Rx] guaiFENesin [Mucinex] 600 mg PO Q12HR PRN tab 04/06/22 [Rx] Follow up Appointment(s)/Referral(s): Masoud Joy Jr, DO [Primary Care Provider] - As Needed Jere García DO [STAFF PHYSICIAN] - 04/12/22 10:15 am () Clinic,Structural Heart [NON-STAFF] - 06/05/22 2:30 pm (Please complete the valve clinic after your 30 day post TAVR echo and labs have been completed at the hospital) Ambulatory/Diagnostic Orders: Basic Metabolic Panel [LAB.AMB] Time Frame: 06/05/22, Facility: [facility], Location: Laboratory [facility] Complete Blood Count w/diff [LAB.AMB] Time Frame: 06/05/22, Facility: [facility], Location: Laboratory [facility] Activity/Diet/Wound Care/Special Instructions: DISCHARGE INSTRUCTIONS: 1. No driving for 1 week, or until physician gives their ok. 2. No lifting, pushing, or pulling more than 5-10 pounds for 1 week. 3. Hold both groins when you cough or sneeze for the next 2 weeks. Bruising is common, but report increased swelling, pain or fever >101F 4. Shower daily. No pool, hot tub, or bathtub for 1 week 5. No powders, lotions, ointments on incisions. 6. No straining, including for bowel movements. Use stool softner if necessary 7. Stairs are not an issue. Go slowly, using handrail and take 1 step at a time. Ambulate several times daily 8. Continue pain control per as needed orders. 9. Take only the medications listed on your discharge form 10. Eat low salt (limited to 2 grams or 2000 milligrams) daily, avoid adding salt, avoid canned/processed foods 11. Take your weight daily in the morning and record, bring with you to your follow up appointments 12. Keep all follow up appointments. You will need a valve clinic appointment at 30 days and 1 year post procedure for follow up 13. You have been referred to and are expected to begin Cardiac Rehab in approximately 4 weeks. 14. You will need antibiotics prior to any dental work, including cleanings, and any surgeries to prevent Endocarditis (bacterial infection in your heart) For any questions or concerns please call your valve coordinators: Lisset or Shorty @ Discharge Disposition: HOME SELF-CARE
[2022-04-06 11:06] VITALS: BP 147/92; PULSE 67; RESP 12
[2022-04-06] MEDS ORDERED: SENNOSIDES-DOCUSATE SODIUM 1 EACH TAB PO SCH (21:00)
--- NOTE | 2022-04-07 10:14 | CA ---
Transthoracic Echo Report Name: Masoud Carver Age: 86 Gender: M : 1935 Exam Date: 04/06/2022 07:53 Exam Location: [facility] Ht (in): 68 Wt (lb): 209 Ordering Physician: Lisset Navarrete Attending/Referring Phys: [id number], Rosalba Seed Service Advisor Kerrie Wooten RDCS Procedure CPT: Indications: post TAVR Cardiac Hx: Technical Quality: Fair Contrast 1: Total Dose (mL): Contrast 2: Total Dose (mL): MEASUREMENTS (Male / Female) Normal Values 2D ECHO LV Diastolic Diameter PLAX 4.4 cm 4.2 - 5.9 / 3.9 - 5.3 cm LV Systolic Diameter PLAX 2.9 cm IVS Diastolic Thickness 1.4 cm 0.6 - 1.0 / 0.6 - 0.9 cm LVPW Diastolic Thickness 1.4 cm 0.6 - 1.0 / 0.6 - 0.9 cm LV Relative Wall Thickness 0.6 RV Internal Dim ED PLAX 3.9 cm LVOT Diameter 2.2 cm LA Systolic Diameter LX 4.3 cm 3.0 - 4.0 / 2.7 - 3.8 cm LA Volume 80.7 cm??? 18 - 58 / 22 - 52 cm??? M-MODE Aortic Root Diameter MM 2.9 cm MV E Point Septal Separation 0.7 cm DOPPLER AV Peak Velocity 222.0 cm/s AV Peak Gradient 19.7 mmHg AV Mean Velocity 129.4 cm/s AV Mean Gradient 8.0 mmHg AV Velocity Time Integral 37.3 cm LVOT Peak Velocity 134.5 cm/s LVOT Peak Gradient 7.2 mmHg LVOT Velocity Time Integral 19.4 cm LVOT Stroke Volume 74.0 cm??? LVOT Stroke Volume Index 35.5 ml/m??? AV Area Cont Eq vti 2.0 cm??? AV Area Cont Eq pk 2.3 cm??? TR Peak Velocity 319.3 cm/s TR Peak Gradient 40.8 mmHg Right Ventricular Systolic Press 42.9 mmHg FINDINGS Left Ventricle Left ventricular ejection fraction is estimated at 55-60 %. Left ventricular cavity size normal. Moderate concentric left ventricular hypertrophy. Right Ventricle Moderate right ventricular dilatation. Mild pulmonary hypertension. Right Atrium Normal right atrial size. Left Atrium Mildly increased left atrial diameter. Severely increased left atrial volume. Mildly increased left atrial area. No evidence for an atrial septal defect. Mitral Valve Mitral annular calcification. Trace mitral regurgitation. Aortic Valve No paravalvular aortic regurgitation. No central aortic regurgitation. Normly functioning valve with max gradient 20 mm/Hg, mean gradient of 8 mm/Hg Tricuspid Valve Mild tricuspid regurgitation. Pulmonic Valve Trace pulmonic regurgitation. Pericardium Normal pericardium. No pericardial effusion. Aorta Normal size aortic root and proximal ascending aorta. CONCLUSIONS LVH with preserved systolic function Percutaneous aortic valve seems stable with acceptable gradients Valve diameter seems smaller than the aortic root/annulus Previewed by: Dr. Ramu Belle MD (Electronically Signed) Final Date: 07 April 2022 10:13
== END 2022-04-06 13:10 | disposition home or self-care (01) | DRG 267 ==
LOC: 2ORMAIN 05:44 → 2SICU 09:09
PROVIDERS: ADMIT Internal Medicine Interventional Cardiology; ATTEND Internal Medicine Interventional Cardiology
PROC: B24BZZ4 Ultrasonography of Heart with Aorta, Transesophageal (ICD-10-PCS; 2022-04-05)
PROC: 02RF38Z Replacement of Aortic Valve with Zooplastic Tissue, Percutaneous Approach (ICD-10-PCS; principal; 2022-04-05 08:00)
PROC: B3101ZZ Fluoroscopy of Thoracic Aorta using Low Osmolar Contrast (ICD-10-PCS; 2022-04-05 08:00)
DX: I35.0 Nonrheumatic aortic (valve) stenosis (principal); I45.2 Bifascicular block; I48.19 Other persistent atrial fibrillation; I50.32 Chronic diastolic (congestive) heart failure; Z00.6 Encounter for examination for normal comparison and control in clinical research program; I11.0 Hypertensive heart disease with heart failure; J44.9 Chronic obstructive pulmonary disease, unspecified; I25.10 Atherosclerotic heart disease of native coronary artery without angina pectoris; E78.5 Hyperlipidemia, unspecified; I25.2 Old myocardial infarction; I65.23 Occlusion and stenosis of bilateral carotid arteries; N40.0 Benign prostatic hyperplasia without lower urinary tract symptoms; E66.9 Obesity, unspecified; R09.02 Hypoxemia; Z68.32 Body mass index [BMI] 32.0-32.9, adult; M19.90 Unspecified osteoarthritis, unspecified site; Z79.01 Long term (current) use of anticoagulants; Z79.899 Other long term (current) drug therapy; Z96.642 Presence of left artificial hip joint; Z87.19 Personal history of other diseases of the digestive system; Z98.52 Vasectomy status; Z90.89 Acquired absence of other organs; Z87.891 Personal history of nicotine dependence; Z87.01 Personal history of pneumonia (recurrent); Z98.818 Other dental procedure status; Z86.010 Personal history of colon polyps; Z87.11 Personal history of peptic ulcer disease; Z98.890 Other specified postprocedural states; Z71.3 Dietary counseling and surveillance; Z91.011 Allergy to milk products; Z91.018 Allergy to other foods; Z82.3 Family history of stroke; Z82.49 Family history of ischemic heart disease and other diseases of the circulatory system
CPT/HCPCS: 33210; 33361; 71045; 80053; 82330; 83036; 83735; 83880; 84443; 85025; 85027; 85610; 85730; 86850; 86900; 86901; 87070; 93306; 93312; 93320; 93325

== ENCOUNTER → 2022-07-04 | Outpatient (CLI) | payer MEDICARE ==
[2022-07-04 11:04] LABS: Basophils # (A) 0.05 X 10*3/uL (0.00-0.10); Basophils % (A) 0.8 %; Eosinophils % (A) 1.6 %; HCT 41.9 % (39.6-50.0); HGB 13.8 g/dL (13.0-17.0); Immature Grans, Automated 0.3 %; Lymphocytes # (A) 1.09 X 10*3/uL (0.90-5.00); Lymphocytes % (A) 17.4 %; MCH 30.2 pg (27.0-32.0); MCHC 32.9 g/dL (32.0-37.0); MCV 91.7 fL (80.0-97.0); Mean Platelet Volume 11.5 fL (9.5-12.2); Monocytes # (A) 0.59 X 10*3/uL (0.20-1.00); Monocytes % (A) 9.4 %; NRBC Per 100 WBC 0 /100 WBCS (0.0-0.0); Neutrophils # (A) 4.42 X 10*3/uL (1.80-7.70); Neutrophils % (A) 70.5 %; Platelet Count 111 X 10*3/uL (140-440); RBC 4.57 X 10*6/uL (4.40-5.60); RDW 13.7 % (11.5-14.5); WBC 6.27 X 10*3/uL (4.50-10.00)
[2022-07-04 11:50] LABS: African American GFR (CKD) 70.6 (60.0-200.0); Anion Gap 8.7 mmol/L (10.00-18.00); BUN/Creat Ratio 12.73 Ratio (12.00-20.00); Calcium 8.7 mg/dL (8.7-10.3); Carbon Dioxide 28.3 mmol/L (20.0-27.5); Non-African American GFR(CKD) 60.9 (60.0-200.0); Potassium 4.1 mmol/L (3.5-5.5)
== END | disposition home or self-care (01) ==
LOC: LABWHC1 08:06
PROVIDERS: ATTEND Thoracic Surgery (Cardiothoracic Vascular Surgery)
DX: I35.1 Nonrheumatic aortic (valve) insufficiency (principal)
CPT/HCPCS: 36415; 80048; 85025

== ENCOUNTER → 2022-07-11 | Outpatient (CLI) | payer MEDICARE ==
--- NOTE | 2022-07-12 07:46 | CA ---
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 18 - 58 / 22 - 52 cm??? M-MODE Aortic Root Diameter MM 3.1 cm LA Systolic Diameter MM 4.2 cm LA Ao Ratio MM 1.3 MV E Point Septal Separation 0.7 cm DOPPLER AV Peak Velocity 159.5 cm/s AV Peak Gradient 10.2 mmHg AV Mean Velocity 115.8 cm/s AV Mean Gradient 6.5 mmHg AV Velocity Time Integral 34.2 cm LVOT Peak Velocity 100.1 cm/s LVOT Peak Gradient 4.0 mmHg MV E' Velocity 2.2 cm/s FINDINGS Left Ventricle Left ventricular ejection fraction is estimated at 50-55 %. Right Ventricle Normal right ventricular size and function. Right Atrium Normal right atrial size. Left Atrium Severely increased left atrial volume. Mildly increased left atrial area. Mitral Valve Structurally normal mitral valve. Mild mitral regurgitation. Aortic Valve Normally functioning bioprosthetic aortic valve without stenosis OR regurgitation with a peak gradient of 10.2 mmHg, mean gradient of 6.5 mmHg, Tricuspid Valve Structurally normal tricuspid valve. Pulmonic Valve Structurally normal pulmonic valve. Pericardium Normal pericardium. Aorta Normal size aortic root and proximal ascending aorta. CONCLUSIONS Normal left ventricular dimension and systolic function Bioprosthetic valve, probably transcatheter valve in aortic position was normal function Previewed by: Dr. Berry Dorado MD (Electronically Signed) Final Date: 12 July 2022 07:46
== END | disposition home or self-care (01) ==
LOC: RADECHMAIN 08:20
PROVIDERS: ATTEND Thoracic Surgery (Cardiothoracic Vascular Surgery)
DX: I35.1 Nonrheumatic aortic (valve) insufficiency (principal)
CPT/HCPCS: 93306

== ENCOUNTER → 2023-03-21 | Outpatient (CLI) | payer MEDICARE ==
[2023-03-21 12:36] LABS: Basophils # (A) 0.1 k/uL (0-0.2); Basophils % (A) 1 %; Eosinophils # (A) 0.2 k/uL (0-0.7); Eosinophils % (A) 3 %; HCT 44.6 % (39.0-53.0); HGB 13.9 gm/dL (13.0-17.5); Hypochromasia Marked; Lymphocytes % (A) 16 %; MCH 31.8 pg (25.0-35.0); MCHC 31.3 g/dL (31.0-37.0); MCV 101.7 fL (80.0-100.0); Macrocytosis Slight; Mean Platelet Volume 9.7; Monocytes # (A) 0.4 k/uL (0-1.0); Monocytes % (A) 6 %; Neutrophils # (A) 4.6 k/uL (1.3-7.7); Neutrophils % (A) 73 %; Platelet Count 135 k/uL (150-450); RBC 4.39 m/uL (4.30-5.90); RDW 13.6 % (11.5-15.5); WBC 6.3 k/uL (3.8-10.6)
[2023-03-21 12:41] LABS: African American GFR (CKD) 82 (>60 ml/min/1.73 sqM); Anion Gap 6 mmol/L; Blood Urea Nitrogen 19 mg/dL (9-20); Calcium 8.6 mg/dL (8.4-10.2); Carbon Dioxide 34 mmol/L (22-30); Chloride 100 mmol/L (98-107); Glucose 86 mg/dL (74-99); Non-African American GFR(CKD) 71 (>60 ml/min/1.73 sqM); Potassium 4.6 mmol/L (3.5-5.1); Sodium 140 mmol/L (137-145)
== END | disposition home or self-care (01) ==
LOC: LABWHC1 10:08
PROVIDERS: ATTEND Nurse Practitioner Acute Care
DX: I35.0 Nonrheumatic aortic (valve) stenosis (principal)
CPT/HCPCS: 36415; 80048; 85025

== ENCOUNTER → 2023-11-07 | Outpatient (CLI) | payer MEDICARE ==
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
== END | disposition home or self-care (01) ==
LOC: RADMRIMAIN 10:06
PROVIDERS: ATTEND Otolaryngology
DX: G93.89 Other specified disorders of brain (principal)
CPT/HCPCS: 70553; A9585

== ENCOUNTER 2024-02-09 14:52 | Emergency (ER) | payer MEDICARE ==
[2024-02-09 15:02] VITALS: RESP 18; TEMP 98.1
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
[2024-02-09 16:03] LABS: ALT 30 U/L (4-49); AST 58 U/L (17-59); African American GFR (CKD) >90 (>60 ml/min/1.73 sqM); Albumin 3.7 g/dL (3.5-5.0); Alcohol <10 mg/dL; Alkaline Phosphatase 93 U/L (38-126); Anion Gap 2 mmol/L; Blood Urea Nitrogen 21 mg/dL (9-20); Calcium 8.2 mg/dL (8.4-10.2); Carbon Dioxide 30 mmol/L (22-30); Chloride 105 mmol/L (98-107); Glucose 85 mg/dL (74-99); Non-African American GFR(CKD) 80 (>60 ml/min/1.73 sqM); Sodium 137 mmol/L (137-145); Total Bilirubin 0.9 mg/dL (0.2-1.3); Total Protein 6.6 g/dL (6.3-8.2)
[2024-02-09 16:22] LABS: Basophils % (A) 0 %; Eosinophils # (A) 0.1 k/uL (0-0.7); Eosinophils % (A) 1 %; HCT 39.4 % (39.0-53.0); Lymphocytes # (A) 0.9 k/uL (1.0-4.8); Lymphocytes % (A) 18 %; MCH 31.5 pg (25.0-35.0); MCV 95.4 fL (80.0-100.0); Mean Platelet Volume 10.5; Monocytes # (A) 0.3 k/uL (0-1.0); Monocytes % (A) 6 %; Neutrophils # (A) 3.5 k/uL (1.3-7.7); Neutrophils % (A) 73 %; Platelet Count 106 k/uL (150-450); RBC 4.13 m/uL (4.30-5.90); RDW 13.9 % (11.5-15.5); WBC 4.8 k/uL (3.8-10.6)
[2024-02-09 16:23] LABS: Potassium 4.7 mmol/L (3.5-5.1)
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
[2024-02-09 16:58] LABS: Appearance,Urine Clear (Clear); Bilirubin,Urine Negative (Negative); Blood,Urine Negative (Negative); Color,Urine Light Yellow; Glucose,Urine (UA) Negative (Negative); Ketones,Urine Negative (Negative); Leukocyte Esterase,Urine Negative (Negative); Nitrite,Urine Negative (Negative); Protein,Urine Negative (Negative); Specific Gravity,Urine 1.018 (1.001-1.035); Urobilinogen,Urine <2.0 mg/dL (<2.0)
[2024-02-09 17:06] LABS: Amphetamine Screen,Urine Not Detected (NotDetected); Barbiturate Screen,Urine Not Detected (NotDetected); Benzodiazepines Screen,Urine Not Detected (NotDetected); Cocaine Screen,Urine Not Detected (NotDetected); Methadone Screen, Urine Not Detected (NotDetected); Opiate Screen,Urine Not Detected (NotDetected); Oxycodone Screen, Urine Not Detected (NotDetected); Phencyclidine Screen,Urine Not Detected (NotDetected); Tricyclic Antidepressant,Urine Not Detected (NotDetected); Urn Cannabinoid Scrn Not Detected (NotDetected)
[2024-02-09 17:27] LABS: INR 2.6 (<1.2); Prothrombin Time 25.4 sec (10.0-12.5)
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
[2024-02-09 18:52] VITALS: BP 159/87; PULSE 72
== END 2024-02-09 18:09 | disposition home or self-care (01) ==
LOC: EC 14:52
DX: S22.41XA Multiple fractures of ribs, right side, initial encounter for closed fracture (principal); D68.9 Coagulation defect, unspecified; Z91.018 Allergy to other foods; Z91.011 Allergy to milk products; Z87.891 Personal history of nicotine dependence; V43.52XA Car driver injured in collision with other type car in traffic accident, initial encounter
CPT/HCPCS: 36415; 93005; 86900; 86901; 80053; 84484; 85025; 85610; 85730; 86850; 81003; 80306; 80320; 72170; 71045; 72125; 70450; 71260; 74177; 99285; G0390; Q9967

== ENCOUNTER 2024-09-22 11:52 | Day surgery (SDC) | payer MEDICARE ==
[~2024-09-22 11:52] MED LIST changes: -ASPIRIN 325 MG TAB PO STA; -ATORVASTATIN 80 MG TAB PO STA; -HEPARIN SODIUM,PORCINE 10,000 UNIT in SODIUM CHLORIDE 0.9% 1,000 ML IRRIGATION PRN; -HEPARIN SODIUM,PORCINE 2,500 UNIT in SODIUM CHLORIDE 0.9% 250 ML IRRIGATION PRN; -SODIUM CHLORIDE 0.9% 1,000 ML in EMPTY BAG 1 BAG IV SCH
[2024-09-22] MEDS: SODIUM CHLORIDE 0.9% 1,000 ML in EMPTY BAG 1 BAG IV SCH ×2 (12:10→17:30)
[2024-09-22] MEDS: ASPIRIN 325 MG TAB PO ONE (12:11)
[2024-09-22] MEDS: IV FLUID CONTINUATION 1,000 ML IV ONE (12:14)
[2024-09-22] MEDS: LOSARTAN 50 MG TAB PO STA (12:32)
[2024-09-22 12:48] LABS: Basophils % (A) 0 %; Eosinophils % (A) 0 %; HCT 37.1 % (39.0-53.0); HGB 11.9 gm/dL (13.0-17.5); Hypochromasia Slight; Lymphocytes # (A) 0.9 k/uL (1.0-4.8); Lymphocytes % (A) 10 %; MCH 30.9 pg (25.0-35.0); MCHC 32.1 g/dL (31.0-37.0); MCV 96.3 fL (80.0-100.0); Mean Platelet Volume 9.9; Monocytes # (A) 0.4 k/uL (0-1.0); Monocytes % (A) 5 %; Neutrophils # (A) 7.4 k/uL (1.3-7.7); Neutrophils % (A) 84 %; Platelet Count 134 k/uL (150-450); RBC 3.85 m/uL (4.30-5.90); RDW 14.8 % (11.5-15.5); WBC 8.9 k/uL (3.8-10.6)
[2024-09-22 12:49] LABS: African American GFR (CKD) >90 (>60 ml/min/1.73 sqM); Anion Gap 7 mmol/L; Blood Urea Nitrogen 16 mg/dL (9-20); Calcium 8.2 mg/dL (8.4-10.2); Carbon Dioxide 26 mmol/L (22-30); Chloride 104 mmol/L (98-107); Glucose 103 mg/dL (74-99); Non-African American GFR(CKD) 81 (>60 ml/min/1.73 sqM); Potassium 3.9 mmol/L (3.5-5.1); Sodium 137 mmol/L (137-145)
[2024-09-22 13:12] LABS: INR 1.1 (<1.2); Prothrombin Time 11.7 sec (10.0-12.5)
[2024-09-22] MEDS: LIDOCAINE 1% INJ 10MG/ML (20 ML MDV) SQ ONE (14:31)
[2024-09-22] MEDS: fentaNYL (PF) 50 MCG/1 ML VIAL IVP ONE (14:31)
[2024-09-22] MEDS: MIDAZOLAM 2 MG/2 ML VIAL IVP ONE (14:31)
[2024-09-22] MEDS: VERAPAMIL SYRINGE (5 MG/10 ML) INTRAARTER ONE (14:32)
[2024-09-22] MEDS: HEPARIN SODIUM 1,000 UN/ML (10ML VL) IVP ONE (14:35)
[2024-09-22] MEDS: HEPARIN SODIUM,PORCINE 10,000 UNIT in SODIUM CHLORIDE 0.9% 1,000 ML IRRIGATION PRN (15:04)
[2024-09-22] MEDS: HEPARIN SODIUM,PORCINE (1 ML) 2,500 UNIT in SODIUM CHLORIDE 0.9% 250 ML IRRIGATION PRN (15:04)
[2024-09-22] MEDS: CLOPIDOGREL 75 MG TAB PO ONE (15:04)
[2024-09-22] MEDS: NITROGLYCERIN 1000MCG/10ML SYRINGE INTRACORON ONE ×2 (15:10→15:21)
[2024-09-22] MEDS: IOPAMIDOL-370 100ML BTL INJ ONE ×2 (15:13→15:29)
[2024-09-22] MEDS ORDERED: MAG HYDROX/AL HYDROX/SIMETH 30 ML CUP PO PRN (15:37)
[2024-09-22] MEDS ORDERED: RX INFO: IV CONTRAST WAS GIVEN 1 EACH MISC MISCELLANE PRN (15:37)
[2024-09-22] MEDS ORDERED: ZOLPIDEM 5 MG TAB PO PRN (15:37)
[2024-09-22] MEDS ORDERED: ATROPINE SULFATE 0.1 MG/ML 10ML SYRINGE IV PRN (15:37)
--- NOTE | 2024-09-22 15:41 | P.PRCINT ---
Percutaneous Coronary Int. - Percutaneous Coronary Intervention Percutaneous Coronary Intervention: PROCEDURES PERFORMED: Left heart catheterization, bilateral coronary angiography, ultrasound guided arterial access, iFR circumflex, iFR of RCA, PCI mid circumflex 3.0 x 23mm Xience QUEENIE, post dilated with a 3.25mm NC balloon INDICATION: NYHA class 3 angina, dyspnea on exertion CONSENT:I have discussed the risks, benefits and alternative therapies for the above-mentioned procedure and for both sedation/analgesia as well as necessary blood product administration, if indicated, as they pertain to this patient. The patient has indicated understanding and acceptance of the risks and procedures discussed. PROCEDURE: After the risks, benefits and alternatives of the above mentioned procedure explained in detail with the patient, informed consent was obtained. Patient was taken to the catheterization lab and prepped and draped in usual fashion. Ultrasound guidance was used to assess for arterial access. 1% lidocaine was used to anesthetize the right radial artery. A 6-Bruneian sheath was placed in the right radial artery using modified Seldinger technique and ultrasound guidance. Left coronary angiography was performed with a 5-Bruneian JR 5 catheter and right coronary angiography was performed with a 5-Bruneian FR5 catheter in various views. A 5-Bruneian FR5 catheter was inserted into the left ventricle and pressure measurements were obtained. the decision was made to perform functional assessment of the circumflex and RCA. Heparin was given. Through the 5-Bruneian catheter, 0.014 pressure wire was advanced proximal RCA and normalized. There was significant amount of. However only 0.03 difference on pullback performed a number of times. iFR RCA was 0.94. Next using the 5Fr catheter, a 0.014 pressure wire was advanced into the left main and normalized. It was advanced into the distal circumflex and iFR was abnormal at 0.88. The decision was made to perform PCI of the circumflex. Using a 6-Bruneian XBU 3.5 5 catheter, 0.014 BMW wire was advanced to the distal circumflex. Predilatation was performed with a 2.5 x 12 mm balloon. Next a 3.0 x 23 mm Xience QUEENIE was placed in the mid circumflex. The stent was post dilated with a 3.25mm NC balloon. Final angiograms were performed. Prevention there was 80% stenosis with DINH 3 flow postintervention there was less than 10% stenosis with DINH 3 flow. The right radial sheath was removed and a TR band was placed with hemostasis achieved. The patient tolerated the procedure well. Patient was transported back to the post catheterization holding area in stable condition. Conscious Sedation: Patient was monitored under the direct supervision of myself for conscious sedation using Versed and fentanyl for a total duration of 56 minutes HEMODYNAMICS: Ao: 132/71 LV: 133/18, LVEDP 33mmHg SELECTIVE CORONARY ARTERIOGRAPHY: LEFT MAIN: The left main is a large caliber vessel which bifurcates into the LAD and circumflex. There is no significant stenosis. LEFT ANTERIOR DESCENDING CORONARY ARTERY: LAD is a large caliber vessel which wraps around to the apex. There is mild proximal LAD 10-20% stenosis with a more focal 40-50% stenosis after a moderate caliber diagonal 1 branch.. LEFT CIRCUMFLEX CORONARY ARTERY: Left circumflex is a moderate caliber vessel with mild disease in a more focal tubular 80% mid circumflex stenosis. RIGHT CORONARY ARTERY: The right coronary artery is a large caliber vessel which gives off a PDA and PLV branch and is the dominant vessel. There is a long proximal to mid RCA 60-70% stenosis. FINAL IMPRESSION: 1. CAD as described above including 40-50% mid LAD, circumflex 80%, mid RCA 60-70% stenosis 2. Significantly elevated left sided filling pressures 3. iFR RCA normal, iFR circumflex abnormal PLAN: 1. Aggressive risk factor modification per most recent ACC/AHA guidelines. 2. Continue Plavix and Coumadin for 6 months. 3. Increase diuretics. 4. Medical therapy of RCA which appears unchanged from prior films from 2021
[2024-09-22] MEDS: ATORVASTATIN 80 MG TAB PO STA (17:52)
[2024-09-22] MEDS: ATORVASTATIN 80 MG TAB PO ONE (17:52)
[2024-09-22] MEDS: FUROSEMIDE 10 MG/ML 4 ML VIAL IV STA (18:00)
[2024-09-22] MEDS: FUROSEMIDE 10 MG/ML 10 ML VIAL IV STA (18:12)
[2024-09-22] MEDS: POTASSIUM CHLORIDE ER 10 MEQ TAB.ER.PRT PO SCH (20:03)
[2024-09-22] MEDS: TAMSULOSIN 0.4 MG CAP.ER.24H PO SCH (20:03)
[2024-09-22 20:34] VITALS: PULSE 70
[2024-09-22] MEDS: WARFARIN 0.5 MG TAB PO ONE (21:54)
[2024-09-22] MEDS: ACETAMINOPHEN TAB 325 MG TAB PO PRN (22:36)
[2024-09-23 06:01] LABS: INR 1.1 (<1.2); Prothrombin Time 11.7 sec (10.0-12.5)
[2024-09-23 07:42] VITALS: BP 156/85; RESP 15; TEMP 97.3
--- NOTE | 2024-09-23 08:09 | P.DS ---
Providers Attending physician: Jere García DO Consults: 09/22/24 15:37 Consult Physician Routine Consulting Provider: [facility] Consult Reason/Comments: Post Interventional patient Do you want consulting provider notified?: Already Contacted Primary care physician: [facility] Course: An 88-year-old male with history of hypertension, hyperlipidemia, atrial fibrillation, aortic stenosis status post TAVR, and known CAD who has been having increasing dyspnea with minimal exertion, concerning for anginal equivalent. Patient therefore underwent left heart catheterization 09/22/2024 with similar appearing RCA 50-60% stenosis with iFR normal of the RCA however, abnormal iFR of circumflex and underwent PCI of circumflex. Patient did fairly well however did develop some increasing respiratory distress and was given IV Lasix. His LVEDP was noted to be significantly elevated in the 30s. He admits he has not been taking his diuretic over last 5 days. Currently 09/23 he feels much better without any significant dyspnea and appears stable for discharge home. We discussed importance of low-salt diet and taking diuretic daily and his Lasix will be increased up to 40 mg daily. Plan - Discharge Summary Discharge Rx Participant: No New Discharge Prescriptions: New Furosemide [Lasix] 40 mg PO DAILY #90 tab Clopidogrel [Plavix] 75 mg PO DAILY #90 tab Discontinued Furosemide [Lasix] 20 mg PO DAILY No Action Tamsulosin HCl [Flomax] 0.4 mg PO BID Warfarin [Coumadin] 7.5 mg PO DAILY Cholecalciferol [Vitamin D3 (25 Mcg = 1000 Iu)] 25 mcg PO DAILY Zinc 50 mg PO DAILY Vitc/E/Zinc/Copper/Lutein/Zeax [Icaps Areds2 Tablet] 1 tab PO DAILY [place]-3/Dha/Epa/Fish Oil [Fish Oil 1,000 mg Softgel] 1 cap PO DAILY Potassium Chloride [Potassium Chloride ER] 10 meq PO BID Ascorbic Acid [Vitamin C] 1,000 mg PO DAILY Acetaminophen Tab [Tylenol] 650 mg PO Q4HR PRN tab PRN Reason: Fever And/ Or Mild Pain (1-3) Losartan [Cozaar] 50 mg PO DAILY Discharge Medication List Tamsulosin HCl [Flomax] 0.4 mg PO BID 08/06/17 [History] Potassium Chloride [Potassium Chloride ER] 10 meq PO BID 02/27/22 [History] Warfarin [Coumadin] 7.5 mg PO DAILY 02/27/22 [History] Ascorbic Acid [Vitamin C] 1,000 mg PO DAILY 04/03/22 [History] Cholecalciferol [Vitamin D3 (25 Mcg = 1000 Iu)] 25 mcg PO DAILY 04/03/22 [History] [place]-3/Dha/Epa/Fish Oil [Fish Oil 1,000 mg Softgel] 1 cap PO DAILY 04/03/22 [History] Vitc/E/Zinc/Copper/Lutein/Zeax [Icaps Areds2 Tablet] 1 tab PO DAILY 04/03/22 [History] Zinc 50 mg PO DAILY 04/03/22 [History] Acetaminophen Tab [Tylenol] 650 mg PO Q4HR PRN tab 04/06/22 [Rx] Losartan [Cozaar] 50 mg PO DAILY 02/09/24 [History] Clopidogrel [Plavix] 75 mg PO DAILY #90 tab 09/23/24 [Rx] Furosemide [Lasix] 40 mg PO DAILY #90 tab 09/23/24 [Rx] Follow up Appointment(s)/Referral(s): Jere García DO [STAFF PHYSICIAN] - 09/29/24 7:30 am Patient Instructions/Handouts: *[facility] - After Heart Catheterization - [employer] Instructions, Moderate Sedation (DC), Cardiac Rehabilitation (DC), Fall Prevention (DC), Coronary Intravascular Stent Placement (DC), After Radial Heart Catheterization (GEN) Activity/Diet/Wound Care/Special Instructions: NO DRIVING FOR 48 HOURS OK TO SHOWER AFTER TAKE DRESSING OFF NO NEED TO REAPPLY DRESSING. NO OINTMENTS, LOTIONS POWDERS TO PUNCTURE SITE. SIGNS OF INFECTION IE: FEVER, RASH, UNUSUAL DRAINAGE, SWELLING OR HARD KNOT ON SITE CONTACT DR TO BE EVALUATED. IF SITE BLEEDS, APPLY FIRM PRESSURE AND GO TO ER. DO NOT DRIVE SELF. MEDICATIONS UNCHANGED. FALL PRECAUTIONS TODAY RELATED TO MEDICATIONS. . PLAVIX 75 MG ORALDAILY DIRECTED (FILLED HERE AT [facility]) ATORVASTATIN 40 MG ORAL AT BEDTIME DAILY ASPIRIN 81MG DAILY
[2024-09-23 08:47] LABS: HGB 11.2 g/dL (13.0-17.0); MCH 29.9 pg (27.0-32.0); MCV 93.6 FL (80.0-97.0); Mean Platelet Volume 12.4 FL (9.5-12.2); NRBC Per 100 WBC 0 X 10*3/uL (0.00-0.01); Platelet Count 127 X 10*3/uL (140-440); RBC 3.74 X 10*6/uL (4.40-5.60); RDW 15.3 % (11.5-14.5); WBC 14.06 X 10*3/uL (4.50-10.00)
[2024-09-23 08:50] LABS: Blood Urea Nitrogen 18.8 mg/dL (9.0-27.0); Calcium 8.3 mg/dL (8.7-10.3); Carbon Dioxide 30.8 mmol/L (21.6-31.8); Chloride 102 mmol/L (96-109); Glucose 92 mg/dL (70-110); Sodium 142 mmol/L (135-145)
[2024-09-23] MEDS: CHOLECALCIFEROL 25 MCG (1000 IU) TABLET PO SCH (08:51)
[2024-09-23] MEDS: VIT A,C & E-LUTEIN-MINERALS 1 EACH TAB PO SCH (08:51)
[2024-09-23] MEDS: ASCORBIC ACID 500 MG TAB PO SCH (08:51)
[2024-09-23] MEDS: ASPIRIN 81 MG PO SCH (08:51)
[2024-09-23] MEDS: LOSARTAN 50 MG TAB PO SCH (08:52)
[2024-09-23] MEDS: ZINC SULFATE 220 MG CAP PO SCH (08:52)
[2024-09-23] MEDS: CLOPIDOGREL 75 MG TAB PO SCH (08:52)
[2024-09-23] MEDS: FUROSEMIDE 20 MG TAB PO SCH (08:52)
[2024-09-23] MEDS ORDERED: WARFARIN 7.5 MG TAB PO SCH (09:00)
[2024-09-23] MEDS ORDERED: NON FORMULARY DRUG (Omega-3/Dha/Epa/Fish Oil [Fish Oil 1,000 Mg Softgel] 1 EACH Capsule) PO SCH (09:00)
[2024-09-23] MEDS ORDERED: WARFARIN 7.5 MG TAB PO ONE (18:00)
[2024-09-23] MEDS ORDERED: ATORVASTATIN 40 MG TAB PO SCH (21:00)
== END 2024-09-23 11:26 | disposition home or self-care (01) ==
LOC: CATHCVL 11:52 → 6NMEDSUR 17:40 → CATHCVL 09-23 11:26
PROVIDERS: ATTEND Internal Medicine
DX: I25.119 Atherosclerotic heart disease of native coronary artery with unspecified angina pectoris (principal); I35.0 Nonrheumatic aortic (valve) stenosis; I50.22 Chronic systolic (congestive) heart failure; I11.0 Hypertensive heart disease with heart failure; I48.19 Other persistent atrial fibrillation; E78.5 Hyperlipidemia, unspecified; I45.10 Unspecified right bundle-branch block; I44.4 Left anterior fascicular block; Z95.2 Presence of prosthetic heart valve; Z79.02 Long term (current) use of antithrombotics/antiplatelets; Z79.899 Other long term (current) drug therapy
CPT/HCPCS: 93458; 93799; 80048 ×2; 85025; 85027; 85610 ×2; 99152; 99153; C9600; J2250; J1644 ×3; J1940; J2003; Q9967; J3010; J2305

== ENCOUNTER 2024-10-02 11:21 | Inpatient (IN) | payer MEDICARE ==
[2024-10-02] MEDS: PANTOPRAZOLE 40 MG/10 ML VIAL IVP STA (12:13)
--- NOTE | 2024-10-02 12:28 | ED ---
General Adult HPI - General Chief complaint: Shortness of Breath Stated complaint: SOB Time Seen by Provider: 10/02/24 11:41 Source: patient, family, RN notes reviewed, old records reviewed Mode of arrival: ambulatory Limitations: no limitations - History of Present Illness Initial comments: 88-year-old male presenting for evaluation of exertional dyspnea, generalized weakness. Patient had recent stent placement currently on both Coumadin and Plavix. He has a history of atrial fibrillation. He has had a 2-week history of black stool. Denies prior history of GI bleed. Denies fever. Denies chest or abdominal pain. - Related Data Home Medications Medication Instructions Recorded Confirmed Tamsulosin HCl [Flomax] 0.4 mg PO BID 08/06/17 10/02/24 Potassium Chloride [Potassium 10 meq PO BID 02/27/22 10/02/24 Chloride ER] Warfarin [Coumadin] 7.5 mg PO DAILY 02/27/22 10/02/24 Ascorbic Acid [Vitamin C] 1,000 mg PO DAILY 04/03/22 10/02/24 Cholecalciferol [Vitamin D3 (25 25 mcg PO DAILY 04/03/22 10/02/24 Mcg = 1000 Iu)] [place]-3/Dha/Epa/Fish Oil [Fish Oil 1 cap PO DAILY 04/03/22 10/02/24 1,000 mg Softgel] Vitc/E/Zinc/Copper/Lutein/Zeax 1 tab PO DAILY 04/03/22 10/02/24 [Icaps Areds2 Tablet] Zinc 50 mg PO DAILY 04/03/22 10/02/24 Losartan [Cozaar] 50 mg PO DAILY 02/09/24 10/02/24 Aspirin EC [Ecotrin Low Dose] 81 mg PO DAILY 10/02/24 10/02/24 Atorvastatin [Lipitor] 40 mg PO HS 10/02/24 10/02/24 Pantoprazole [Protonix] 40 mg PO DAILY 10/02/24 10/02/24 Previous Rx's Medication Instructions Recorded Acetaminophen Tab [Tylenol] 650 mg PO Q4HR PRN tab 04/06/22 Clopidogrel [Plavix] 75 mg PO DAILY #90 tab 09/23/24 Furosemide [Lasix] 40 mg PO DAILY #90 tab 09/23/24 Allergies Allergy/AdvReac Type Severity Reaction Status Date / Time banana Allergy Unknown Verified 10/02/24 13:27 Milk Containing Products Allergy Unknown Verified 10/02/24 13:27 (Dairy) [Dairy] Review of Systems ROS Statement: Those systems with pertinent positive or pertinent negative responses have been documented in the HPI. ROS Other: All systems not noted in ROS Statement are negative. Past Medical History Past Medical History: Atrial Fibrillation, Coronary Artery Disease (CAD), Eye Disorder, Hypertension, Myocardial Infarction ([place]), Osteoarthritis (OA), Pneumonia, Prostate Disorder Additional Past Medical History / Comment(s): chronic Afib, had pneumonia 15 yrs. 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, colon polyp/diverticular dx, [place] 1997 per stress test, gastric ulcer, leg cramps at night Last Myocardial Infarction Date:: 1997 History of Any Multi-Drug Resistant Organisms: None Reported Past Surgical History: Adenoidectomy, Heart Catheterization, Heart Catheterizat ion With Stent, Hernia Repair, Orthopedic Surgery, Tonsillectomy Additional Past Surgical History / Comment(s): R inguinal hernia repair, ORIF L hip & then replacement 2016, hemorrhoidectomy, colonoscopy,tavr Past Anesthesia/Blood Transfusion Reactions: No Reported Reaction Past Psychological History: No Psychological Hx Reported Smoking Status: Former smoker Past Alcohol Use History: None Reported Past Drug Use History: None Reported - Past Family History Mother Family Medical History: No Reported History Additional Family Medical History / Comment(s): Mother was executed in [place]. Sister(s) Family Medical History: No Reported History Additional Family Medical History / Comment(s): Sister was executed in [place]. Father Family Medical History: CVA/TIA, Myocardial Infarction ([place]) General Exam Limitations: no limitations General appearance: alert, in no apparent distress Head exam: Present: atraumatic, normocephalic Eye exam: Present: normal appearance, PERRL ENT exam: Present: normal exam Neck exam: Present: normal inspection. Absent: tenderness, meningismus Respiratory exam: Present: normal lung sounds bilaterally. Absent: respiratory distress, wheezes Cardiovascular Exam: Present: regular rate, irregular rhythm GI/Abdominal exam: Present: soft. Absent: distended, tenderness Extremities exam: Present: pedal edema Neurological exam: Present: alert, oriented X3 Skin exam: Present: pallor Course Vital Signs 10/02/24 10/02/24 10/02/24 11:27 11:47 11:48 Temperature 97.4 F L 97.4 F L Pulse Rate 90 70 Respiratory 20 16 16 Rate Blood Pressure 99/58 105/73 O2 Sat by Pulse 98 99 Oximetry 10/02/24 13:00 Temperature Pulse Rate 73 Respiratory 16 Rate Blood Pressure 126/71 O2 Sat by Pulse 100 Oximetry Medical Decision Making - Medical Decision Making Was pt. sent in by a medical professional or institution (, [facility], [facility], urgent care, hospital, or snf...) When possible be specific @ -No Did you speak to anyone other than the patient for history (EMS, parent, family, police, friend...)? What history was obtained from this source @ -No Did you review nursing and triage notes (agree or disagree)? Why? @ -I reviewed and agree with nursing and triage notes Were old charts reviewed (outside hosp., previous admission, EMS record, old EKG, old radiological studies, urgent care reports/EKG's, snf records)? Report findings @ -No old charts were reviewed Differential Weakness: Hypoglycemia, shock, sepsis, hyponatremia, anemia, infection, [place], ETOH, adverse medicine reaction, overdose, stroke, this is not meant to be an all-inclusive list. EKG interpreted by me (3pts min.). @ -Atrial fibrillation, right bundle branch block rate of 76, QRS duration 135, QTc [address] segment elevation. X-rays interpreted by me (1pt min.). @ -Chest x-ray negative for acute cardiopulmonary findings CT interpreted by me (1pt min.). @ -None done U/S interpreted by me (1pt. min.). @ -None done What testing was considered but not performed or refused? (CT, X-rays, U/S, labs)? Why? @ -None What meds were considered but not given or refused? Why? @ -None Did you discuss the management of the patient with other professionals (professionals i.e. [facility] [place], [facility], lab, RT, psych nurse, social work coordinator, optical dispenser, teacher, chief clinical officer, adult protective caseworker)? Give summary @ -Case discussed with Dr. Joy who will admit. Was smoking cessation discussed for >3mins.? @ -No Was critical care preformed (if so, how long)? @Yes, 35 minutes Were there social determinants of health that impacted care today? How? (Homelessness, low income, unemployed, alcoholism, drug addiction, transportation, low edu. Level, literacy, decrease access to med. care, alf, rehab)? @ -No Was there de-escalation of care discussed even if they declined (Discuss DNR or withdrawal of care, Hospice)? DNR status @ -No What co-morbidities impacted this encounter? (DM, HTN, Smoking, COPD, CAD, Cancer, CVA, ARF, Chemo, Hep., AIDS, mental health diagnosis, sleep apnea, morbid obesity)? @Atrial fibrillation, recent stents, on Plavix and Coumadin Was patient admitted / discharged? Hospital course, mention meds given and route, prescriptions, significant lab abnormalities, going to OR and other pertinent info. @ -[88-year-old male with 2 weeks of melena, patient's hemoglobin is 8.6 which is downtrending. Patient complains of exertional dyspnea and fatigue. INR is 1.5, Coumadin will be held. Patient started on Protonix for presumed upper GI bleed. He is admitted to his primary care provider with cardiology and gastroenterology on consult. Hemoglobin will be checked every 6 hours. Undiagnosed new problem with uncertain prognosis? @ -No Drug Therapy requiring intensive monitoring for toxicity (Heparin, Nitro, Insulin, Cardizem)? @ -No Were any procedures done? @ -No Diagnosis/symptom? @ -Melena, anemia Acute, or Chronic, or Acute on Chronic? @ -Acute Uncomplicated (without systemic symptoms) or Complicated (systemic symptoms)? @Complicated Side effects of treatment? @ -No Exacerbation, Progression, or Severe Exacerbation? @ -No Poses a threat to life or bodily function? How? (Chest pain, [place], [place], pneumonia, PE, COPD, DKA, ARF, appy, cholecystitis, CVA, Diverticulitis, Homicidal, Adam icidal, threat to staff... and all critical care pts) @ -Yes, GI bleed - Lab Data Result diagrams: 10/02/24 12:04 10/02/24 12:04 Lab Results 10/02/24 10/02/24 10/02/24 Range/Units 11:39 12:04 12:04 WBC 7.7 (3.8-10.6) k/uL RBC 2.64 L (4.30-5.90) m/uL Hgb 8.2 L D (13.0-17.5) gm/dL Hct 25.6 L (39.0-53.0) % MCV 96.7 (80.0-100.0) fL MCH 31.0 (25.0-35.0) pg MCHC 32.1 (31.0-37.0) g/dL RDW 15.4 (11.5-15.5) % Plt Count 176 (150-450) k/uL MPV 10.7 Neutrophils % 86 % Lymphocytes % 9 % Monocytes % 4 % Eosinophils % 0 % Basophils % 0 % Neutrophils # 6.6 (1.3-7.7) k/uL Lymphocytes # 0.7 L (1.0-4.8) k/uL Monocytes # 0.3 (0-1.0) k/uL Eosinophils # 0.0 (0-0.7) k/uL Basophils # 0.0 (0-0.2) k/uL Hypochromasia Slight PT 15.6 H (10.0-12.5) sec INR 1.5 H (<1.2) APTT 28.4 (22.0-30.0) sec Sodium (137-145) mmol/L Potassium (3.5-5.1) mmol/L Chloride (98-107) mmol/L Carbon Dioxide (22-30) mmol/L Anion Gap mmol/L BUN (9-20) mg/dL Creatinine (0.66-1.25) mg/dL Est GFR (CKD-EPI)AfAm (>60 ml/min/1.73 sqM) Est GFR (CKD-EPI)NonAf (>60 ml/min/1.73 sqM) Glucose (74-99) mg/dL Plasma Lactic Acid Berto (0.7-2.0) mmol/L Calcium (8.4-10.2) mg/dL Magnesium (1.6-2.3) mg/dL Total Bilirubin (0.2-1.3) mg/dL AST (17-59) U/L ALT (4-49) U/L Alkaline Phosphatase (38-126) U/L NT-Pro-B Natriuret Pep pg/mL Total Protein (6.3-8.2) g/dL Albumin (3.5-5.0) g/dL Blood Type O Negative Blood Type Recheck O Neg Bld Type Recheck Status No Antibody Screen NEGATIVE Spec Expiration Date 10/05/2024 - 230310/02/24 10/02/24 Range/Units 12:04 12:04 WBC (3.8-10.6) k/uL RBC (4.30-5.90) m/uL Hgb (13.0-17.5) gm/dL Hct (39.0-53.0) % MCV (80.0-100.0) fL MCH (25.0-35.0) pg MCHC (31.0-37.0) g/dL RDW (11.5-15.5) % Plt Count (150-450) k/uL MPV Neutrophils % % Lymphocytes % % Monocytes % % Eosinophils % % Basophils % % Neutrophils # (1.3-7.7) k/uL Lymphocytes # (1.0-4.8) k/uL Monocytes # (0-1.0) k/uL Eosinophils # (0-0.7) k/uL Basophils # (0-0.2) k/uL Hypochromasia PT (10.0-12.5) sec INR (<1.2) APTT (22.0-30.0) sec Sodium 135 L (137-145) mmol/L Potassium 4.5 (3.5-5.1) mmol/L Chloride 106 (98-107) mmol/L Carbon Dioxide 26 (22-30) mmol/L Anion Gap 3 mmol/L BUN 31 H (9-20) mg/dL Creatinine 0.81 (0.66-1.25) mg/dL Est GFR (CKD-EPI)AfAm >90 (>60 ml/min/1.73 sqM) Est GFR (CKD-EPI)NonAf 80 (>60 ml/min/1.73 sqM) Glucose 100 H (74-99) mg/dL Plasma Lactic Acid Berto 1.5 (0.7-2.0) mmol/L Calcium 8.5 (8.4-10.2) mg/dL Magnesium 1.9 (1.6-2.3) mg/dL Total Bilirubin 0.9 (0.2-1.3) mg/dL AST 50 (17-59) U/L ALT 28 (4-49) U/L Alkaline Phosphatase 76 (38-126) U/L NT-Pro-B Natriuret Pep 1180 pg/mL Total Protein 6.4 (6.3-8.2) g/dL Albumin 3.8 (3.5-5.0) g/dL Blood Type Blood Type Recheck Bld Type Recheck Status Antibody Screen Spec Expiration Date Critical Care Time Critical Care Time: Yes Total Critical Care Time: 35 Disposition Clinical Impression: GI bleed, Anemia Disposition: ADMITTED IP TO THIS [facility] Condition: Stable Is patient prescribed a controlled substance at d/c from ED?: No Referrals: Masoud Joy Jr, [Primary Care Provider] - 1-2 days Time of Disposition: 14:20
[2024-10-02 12:33] LABS: Basophils % (A) 0 %; Eosinophils % (A) 0 %; HCT 25.6 % (39.0-53.0); Hypochromasia Slight; Lymphocytes # (A) 0.7 k/uL (1.0-4.8); Lymphocytes % (A) 9 %; MCHC 32.1 g/dL (31.0-37.0); MCV 96.7 fL (80.0-100.0); Mean Platelet Volume 10.7; Monocytes # (A) 0.3 k/uL (0-1.0); Monocytes % (A) 4 %; Neutrophils # (A) 6.6 k/uL (1.3-7.7); Neutrophils % (A) 86 %; Platelet Count 176 k/uL (150-450); RBC 2.64 m/uL (4.30-5.90); RDW 15.4 % (11.5-15.5); WBC 7.7 k/uL (3.8-10.6)
--- NOTE | 2024-10-02 12:39 | XR ---
EXAMINATION TYPE: XR chest 2V DATE OF EXAM: 10/02/2024 12:30 PM COMPARISON: Chest radiographs from 02/09/2024 CLINICAL INDICATION: Male, 88 years old with history of difficulty breathing; TECHNIQUE: XR chest 2V Frontal and lateral views of the chest. FINDINGS: Lungs/Pleura: There is no evidence of pleural effusion, focal consolidation, or pneumothorax. Pulmonary vascularity: Unremarkable. Heart/mediastinum: Cardiomediastinal silhouette is unremarkable. Post aortic valve repair changes. Musculoskeletal: Multiple level degenerative disc disease changes seen throughout the spine. Other findings: None IMPRESSION: No acute cardiopulmonary disease/process. [facility], , 10/02/2024 12:37 PM
[2024-10-02 12:40] LABS: HGB 8.2 gm/dL (13.0-17.5)
[2024-10-02 12:41] LABS: INR 1.5 (<1.2); Partial Thromboplastin Time 28.4 sec (22.0-30.0); Prothrombin Time 15.6 sec (10.0-12.5)
[2024-10-02 13:06] LABS: ALT 28 U/L (4-49); African American GFR (CKD) >90 (>60 ml/min/1.73 sqM); Albumin 3.8 g/dL (3.5-5.0); Anion Gap 3 mmol/L; Blood Urea Nitrogen 31 mg/dL (9-20); Calcium 8.5 mg/dL (8.4-10.2); Carbon Dioxide 26 mmol/L (22-30); Chloride 106 mmol/L (98-107); Glucose 100 mg/dL (74-99); Non-African American GFR(CKD) 80 (>60 ml/min/1.73 sqM); Sodium 135 mmol/L (137-145); Total Bilirubin 0.9 mg/dL (0.2-1.3); Total Protein 6.4 g/dL (6.3-8.2)
[2024-10-02 13:11] LABS: NT-Pro-B-Type Natriuretic Pept 1180 pg/mL
[2024-10-02 13:17] LABS: AST 50 U/L (17-59); Alkaline Phosphatase 76 U/L (38-126); Magnesium 1.9 mg/dL (1.6-2.3); Potassium 4.5 mmol/L (3.5-5.1)
[2024-10-02] MEDS ORDERED: NALOXONE 0.4 MG/ML 1 ML VIAL IV PRN (14:16)
[2024-10-02] MEDS: SODIUM CHLORIDE 0.9% 1,000 ML IV SCH (14:58)
[2024-10-02 15:26] LABS: Basophils % (A) 0 %; Eosinophils % (A) 1 %; HCT 22.5 % (39.0-53.0); HGB 7.2 gm/dL (13.0-17.5); Lymphocytes # (A) 0.9 k/uL (1.0-4.8); Lymphocytes % (A) 17 %; MCH 30.8 pg (25.0-35.0); MCHC 32.2 g/dL (31.0-37.0); MCV 95.8 fL (80.0-100.0); Mean Platelet Volume 10.7; Monocytes # (A) 0.2 k/uL (0-1.0); Monocytes % (A) 4 %; Neutrophils # (A) 3.9 k/uL (1.3-7.7); Neutrophils % (A) 76 %; Platelet Count 170 k/uL (150-450); RBC 2.35 m/uL (4.30-5.90); RDW 15.8 % (11.5-15.5); WBC 5.1 k/uL (3.8-10.6)
[2024-10-02] MEDS: PANTOPRAZOLE 40 MG/10 ML VIAL IVP SCH (20:20)
[2024-10-02 20:42] LABS: Basophils % (A) 1 %; Eosinophils # (A) 0.1 k/uL (0-0.7); Eosinophils % (A) 1 %; HCT 22.4 % (39.0-53.0); HGB 7.2 gm/dL (13.0-17.5); Hypochromasia Moderate; Lymphocytes # (A) 1.1 k/uL (1.0-4.8); Lymphocytes % (A) 23 %; MCH 31.4 pg (25.0-35.0); MCHC 32.2 g/dL (31.0-37.0); MCV 97.7 fL (80.0-100.0); Mean Platelet Volume 10.9; Monocytes # (A) 0.3 k/uL (0-1.0); Monocytes % (A) 7 %; Neutrophils # (A) 3.3 k/uL (1.3-7.7); Neutrophils % (A) 68 %; Platelet Count 168 k/uL (150-450); RBC 2.29 m/uL (4.30-5.90); RDW 15.5 % (11.5-15.5); WBC 4.9 k/uL (3.8-10.6)
[2024-10-03] MEDS: FUROSEMIDE 40 MG TAB PO SCH (08:55)
[2024-10-03] MEDS: POTASSIUM CHLORIDE ER 10 MEQ TAB.ER.PRT PO SCH (08:55)
[2024-10-03] MEDS: LOSARTAN 50 MG TAB PO SCH (08:55)
[2024-10-03] MEDS: TAMSULOSIN 0.4 MG CAP.ER.24H PO SCH (08:55)
[2024-10-03] MEDS: ASPIRIN 81 MG PO SCH (08:55)
[2024-10-03] MEDS: ASCORBIC ACID 500 MG TAB PO SCH (08:55)
[2024-10-03] MEDS: CHOLECALCIFEROL 25 MCG (1000 IU) TABLET PO SCH (08:57)
--- NOTE | 2024-10-03 09:57 | P.CONS ---
History of Present Illness - Reason for Consult Consult date: 10/03/24 Melena, anemia Requesting physician: Best Novak - Chief Complaint Shortness of breath - History of Present Illness This a pleasant 88-year-old male who presented to the emergency department with complaints of shortness of breath. Patient has a history of coronary artery disease underwent recent cardiac catheterization with stent placement on 09/22/2024, We just atrial fibrillation, hypertension, osteoarthritis, and prostate disorder who is on 81 mg aspirin, Plavix 75 mg daily and Coumadin last taken 10/02/2024. Patient states he has been having black stool for at least the last couple weeks duration. He presented to the emergency department with a hemoglobin of 7.2, with his last hemoglobin 11.0 on 09/22/2024. He denies any previous history of peptic ulcer disease, no previous history of GI bleed. No regular NSAID use. Unclear of last colonoscopy. He denies any abdominal pain, nausea or vomiting. labs WBC 4.9 hemoglobin 7.2 hematocrit 22 platelet count 168,000 INR 1.5 sodium 135 potassium 4.5 BUN 31 creatinine 0.8 total bilirubin 0.9 AST 50 ALT 28 alkaline phosphatase 76 Review of Systems REVIEW OF SYSTEMS: CARDIOPULMONARY: No chest pain or shortness of breath. Gastrointestinal: No abdominal pain. No nausea or vomiting. No hematemesis, coffee-ground emesis. No rectal bleeding, has positive melena. GENITOURINARY: No dysuria or hematuria. MUSCULOSKELETAL: Reports normal range of motion. SKIN: No rashes. No jaundice. ENDOCRINE: No chills, fevers. No excessive weight gain or loss. No polydipsia or polyuria. PSYCHIATRIC: Unremarkable. NEUROLOGY: No change in mental status. Denies dizziness, headache. ENT: Vision unremarkable. CONSTITUTIONAL: No recent weight loss. No fever, chills, night sweats. Past Medical History Past Medical History: Atrial Fibrillation, Coronary Artery Disease (CAD), Eye Disorder, Hypertension, Myocardial Infarction ([place]), Osteoarthritis ([place]), Pneumonia, Prostate Disorder Additional Past Medical History / Comment(s): chronic Afib, had pneumonia 15 yrs. 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, colon polyp/diverticular dx, [place] 1997 per stress test, gastric ulcer, leg cramps at night Last Myocardial Infarction Date:: 1997 History of Any Multi-Drug Resistant Organisms: None Reported Past Surgical History: Adenoidectomy, Heart Catheterization, Heart Catheterization With Stent, Hernia Repair, Orthopedic Surgery, Tonsillectomy Additional Past Surgical History / Comment(s): R inguinal hernia repair, ORIF L hip & then replacement 2016, hemorrhoidectomy, colonoscopy,tavr Past Anesthesia/Blood Transfusion Reactions: No Reported Reaction Date of Last Stent Placement:: Patient states "about a month ago" Past Psychological History: No Psychological Hx Reported Additional Psychological History / Comment(s): Pt lives with his ex spouse. He has a cane he uses prn. He served in [employer], He is retired from [employer]. He drives. Smoking Status: Former smoker Past Alcohol Use History: None Reported Additional Past Alcohol Use History / Comment(s): Pt started smoking in 1949 and quit in 1993. Pt states he was a heavy drinker and quit that in 1993. Past Drug Use History: None Reported - Past Family History Mother Family Medical History: No Reported History Additional Family Medical History / Comment(s): Mother was executed in [place]. Sister(s) Family Medical History: No Reported History Additional Family Medical History / Comment(s): Sister was executed in [place]. Father Family Medical History: CVA/TIA, Myocardial Infarction ([place]) Medications and Allergies Home Medications Medication Instructions Recorded Confirmed Type Tamsulosin HCl [Flomax] 0.4 mg PO BID 08/06/17 10/02/24 History Potassium Chloride [Potassium 10 meq PO BID 02/27/22 10/02/24 History Chloride ER] Warfarin [Coumadin] 7.5 mg PO DAILY 02/27/22 10/02/24 History Ascorbic Acid [Vitamin C] 1,000 mg PO DAILY 04/03/22 10/02/24 History Cholecalciferol [Vitamin D3 (25 25 mcg PO DAILY 04/03/22 10/02/24 History Mcg = 1000 Iu)] [place]-3/Dha/Epa/Fish Oil [Fish Oil 1 cap PO DAILY 04/03/22 10/02/24 History 1,000 mg Softgel] Vitc/E/Zinc/Copper/Lutein/Zeax 1 tab PO DAILY 04/03/22 10/02/24 History [Icaps Areds2 Tablet] Zinc 50 mg PO DAILY 04/03/22 10/02/24 History Acetaminophen Tab [Tylenol] 650 mg PO Q4HR PRN tab 04/06/22 10/02/24 Rx Losartan [Cozaar] 50 mg PO DAILY 02/09/24 10/02/24 History Clopidogrel [Plavix] 75 mg PO DAILY #90 tab 09/23/24 10/02/24 Rx Furosemide [Lasix] 40 mg PO DAILY #90 tab 09/23/24 10/02/24 Rx Aspirin EC [Ecotrin Low Dose] 81 mg PO DAILY 10/02/24 10/02/24 History Atorvastatin [Lipitor] 40 mg PO HS 10/02/24 10/02/24 History Pantoprazole [Protonix] 40 mg PO DAILY 10/02/24 10/02/24 History Allergies Allergy/AdvReac Type Severity Reaction Status Date / Time banana Allergy Unknown Verified 10/02/24 13:27 Milk Containing Products Allergy Unknown Verified 10/02/24 13:27 (Dairy) [Dairy] Physical Exam Vitals: Vital Signs Temp Pulse Pulse Resp BP BP Pulse Ox 10/03/24 03:22 98.0 F 63 16 126/65 97 10/03/24 00:24 97.8 F 62 16 113/58 10/02/24 23:38 77 16 114/66 98 10/02/24 22:28 97.9 F 62 16 115/55 98 10/02/24 22:08 97.8 F 69 16 113/68 99 10/02/24 21:59 98.0 F 83 16 111/60 98 10/02/24 20:00 97.8 F 92 16 139/61 96 10/02/24 19:03 97.9 F 97 16 132/65 99 10/02/24 18:56 68 16 134/69 95 10/02/24 14:58 97.4 F L 67 16 129/84 100 10/02/24 13:00 73 16 126/71 100 10/02/24 11:48 16 10/02/24 11:47 97.4 F L 70 16 105/73 99 10/02/24 11:27 97.4 F L 90 20 99/58 98 Intake and Output 10/02/24 10/03/24 10/03/24 22:59 06:59 14:59 Intake Total 0 310 Balance 0 310 Intake: Blood Product 0 310 Rc As-1 Unit 0 310 [id number] Other: Voiding Method Toilet Toilet # Voids 4 1 # Bowel Movements 1 Weight 77.111 kg 77.1 kg General appearance: The patient is alert, oriented, appears in no acute distress. HET: Head is normocephalic and atraumatic. Conjunctiva pink. Sclera anicteric. Neck: Supple without lymphadenopathy. Trachea midline. Heart: Regular. Lungs: Equal expansion, normal respiratory effort. Abdomen: Soft, nontender, nondistended. Skin: No rashes. No jaundice. Extremities: Normal skin color and turgor. No pedal edema. Neurological: No focal deficits. Alert and oriented x3. Results CBC & Chem 7: 10/02/24 20:26 10/02/24 12:04 Labs: Abnormal Lab Results - Last 24 Hours (Table) 10/02/24 10/02/24 10/02/24 Range/Units 11:39 12:04 12:04 RBC 2.64 L (4.30-5.90) m/uL Hgb 8.2 L D (13.0-17.5) gm/dL Hct 25.6 L (39.0-53.0) % RDW (11.5-15.5) % Lymphocytes # 0.7 L (1.0-4.8) k/uL PT 15.6 H (10.0-12.5) sec INR 1.5 H (<1.2) Sodium (137-145) mmol/L BUN (9-20) mg/dL Glucose (74-99) mg/dL Crossmatch See Detail 10/02/24 10/02/24 10/02/24 Range/Units 12:04 15:05 20:26 RBC 2.35 L 2.29 L (4.30-5.90) m/uL Hgb 7.2 L 7.2 L (13.0-17.5) gm/dL Hct 22.5 L 22.4 L (39.0-53.0) % RDW 15.8 H (11.5-15.5) % Lymphocytes # 0.9 L (1.0-4.8) k/uL PT (10.0-12.5) sec INR (<1.2) Sodium 135 L (137-145) mmol/L BUN 31 H (9-20) mg/dL Glucose 100 H (74-99) mg/dL Crossmatch Comments: Chest x-ray reports no acute cardiopulmonary disease/process Assessment and Plan (1) Melena Narrative/Plan: 88-year-old with coronary artery disease and recent stent who is on 81 mg as pirin daily, Plavix as well as Coumadin presenting with black stool, shortness of breath and anemia. Patient has 4 g drop in his hemoglobin since his stent placed earlier this month, black stool for the last 2 weeks and elevated BUN which can be seen with upper GI bleed. Will hold Plavix and Coumadin and proceed with upper endoscopy today to evaluate for possible GI source for anemia. Current Visit: Yes Status: Acute Code(s): K92.1 - MELENA SNOMED Code(s): 7951536 (2) Anemia Current Visit: Yes Status: Acute Code(s): D64.9 - ANEMIA, UNSPECIFIED SNOMED Code(s): 520803960 Plan: 1. Continue symptomatic and supportive care 2. Hold Plavix and Coumadin, May continue aspirin 3. Keep n.p.o. 4. Will plan on upper endoscopy today 5. Iron studies ordered 6. Continue with recommendations from cardiology 7. Further recommendations following EGD Thank you for allowing us to participate in the care of the patient, the GI service will sign off, gastroenterology will not be available at the hospital this weekend and through next week. Dr. Thony Llanos I agree with the dictator's note, documented as a scribe by Drea Conway.
--- NOTE | 2024-10-03 11:55 | P.CRDCN ---
History of Present Illness Consult date: 10/03/24 Reason for Consult (text): Melena on Plavix with recent stent placement History of present illness: This is an 88-year-old male patient of Dr. García with past medical history of severe aortic stenosis status post TAVR 04/05, hypertension, persistent atrial fibrillation, left anterior fascicular block, right anterior fascicular block, chronic diastolic heart failure, hyperlipidemia, GERD. We have been asked to evaluate the patient for melena while on Plavix for recent stent. Patient presented to the hospital due to shortness of breath. He denies having any chest pain. Patient also has generalized weakness. Apparently has had 2 weeks of black stools. No abdominal pain. Patient has been seen by GI and is scheduled for EGD this afternoon. Plavix and Coumadin are on hold and he is status post 1 unit of packed RBCs. Blood pressure 127/63, heart rate 67, pulse ox 99% on 2 L nasal cannula. -EKG: Atrial fibrillation at 76 bpm -Chest x-ray: No acute process -Laboratory studies: WBC 4.9, hemoglobin 7.2, INR 1.5, BUN 31 creatinine 0.81, sodium 135, potassium 4.5. proBNP 1180. -Home cardiac medications: Aspirin 81 mg daily, Lipitor 40 mg daily, Plavix 75 mg daily, Lasix 40 mg daily, losartan 50 mg daily, omega-3, potassium chloride 10 mill equivalents twice daily, warfarin 7.5 mg daily. -Left heart catheterization performed on 09/22/2024 revealed 40 to 50% mid LAD, circumflex 80%, mid RCA 60 to 70% stenosis. Patient subsequently underwent PCI of the mid circumflex with QUEENIE. -Echocardiogram performed in the office on 04/04/2023 reveals EF of 55%, grade 2 diastolic dysfunction, moderate concentric left ventricular hypertrophy. Severely dilated left atrium. Transcatheter AV prosthesis with normal function, ascending aorta normal, mild to moderate mitral regurgitation. Moderate tricuspid regurgitation, PASP 39 mmHg, trace to mild pulmonic regurgitation. Review Of Systems: At the time of my exam: CONSTITUTIONAL: Denies fever or chills. Reports generalized weakness. HEENT: Denies blurred vision, vision changes, or eye pain. Denies hemoptysis CARDIOVASCULAR: Denies chest pain. Denies orthopnea. Denies PND. Denies palpitations RESPIRATORY: Denies shortness of breath. GASTROINTESTINAL: Denies abdominal pain. Denies nausea or vomiting. HEMATOLOGIC: Denies bleeding disorders. GENITOURINARY: Denies any blood in urine. SKIN: Denies puritis. Denies rash. Physical examination: Gen: This is an 88-year-old male appears to be in no acute distress VS: reviewed HEENT: Head is atraumatic, normocephalic. Pupils equal, round. Sclerae is anicteric. NECK: Supple. No JVD. LUNGS: Clear to auscultation. No wheezes or rhonchi. No intercostal retractions. HEART: Irregular rate and rhythm. Systolic murmur. ABDOMEN: Soft No tenderness. EXTREMITIES: No pedal edema. No calf tenderness. NEUROLOGICAL: Patient is awake, alert and oriented x3. Assessment: Shortness of breath secondary to a combination of anemia, chronic diastolic heart failure Acute GI bleed with acute blood loss anemia, EGD scheduled for this afternoon Coronary artery disease with stent placement to the mid circumflex on 09/22/2024 History of severe aortic stenosis status post TAVR 04/05 Hypertension Persistent atrial fibrillation, currently rate controlled Left anterior fascicular block and right anterior fascicular block Chronic diastolic heart failure Plan: Resume patient's home cardiac medications Note that Plavix and warfarin are on hold Patient is at high risk for stent thrombosis, and if possible, the most important medication to resume would be Plavix once cleared by GI Further recommendations to follow based upon clinical course Thank you kindly for this consultation. Nurse practitioner note has been reviewed, I agree with documented findings and plan of care. Patient was seen and examined. Past Medical History Past Medical History: Atrial Fibrillation, Coronary Artery Disease (CAD), Eye Disorder, Hypertension, Myocardial Infarction ([place]), Osteoarthritis (OA), Pneumonia, Prostate Disorder Additional Past Medical History / Comment(s): chronic Afib, had pneumonia 15 yrs. 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, colon polyp/diver ticular dx, [place] 1997 per stress test, gastric ulcer, leg cramps at night Last Myocardial Infarction Date:: 1997 History of Any Multi-Drug Resistant Organisms: None Reported Past Surgical History: Adenoidectomy, Heart Catheterization, Heart Catheterization With Stent, Hernia Repair, Orthopedic Surgery, Tonsillectomy Additional Past Surgical History / Comment(s): R inguinal hernia repair, ORIF L hip & then replacement 2017, hemorrhoidectomy, colonoscopy,tavr Past Anesthesia/Blood Transfusion Reactions: No Reported Reaction Date of Last Stent Placement:: Patient states "about a month ago" Past Psychological History: No Psychological Hx Reported Additional Psychological History / Comment(s): Pt lives with his ex spouse. He has a cane he uses prn. He served in the [employer] in [employer], He is retired from [employer]. He drives. Smoking Status: Former smoker Past Alcohol Use History: None Reported Additional Past Alcohol Use History / Comment(s): Pt started smoking in 1949 and quit in 1993. Pt states he was a heavy drinker and quit that in 1993. Past Drug Use History: None Reported - Past Family History Mother Family Medical History: No Reported History Additional Family Medical History / Comment(s): Mother was executed in [place]. Sister(s) Family Medical History: No Reported History Additional Family Medical History / Comment(s): Sister was executed in [place]. Father Family Medical History: CVA/TIA, Myocardial Infarction ([place]) Medications and Allergies Home Medications Medication Instructions Recorded Confirmed Type Tamsulosin HCl [Flomax] 0.4 mg PO BID 08/06/17 10/02/24 History Potassium Chloride [Potassium 10 meq PO BID 02/27/22 10/02/24 History Chloride ER] Warfarin [Coumadin] 7.5 mg PO DAILY 02/27/22 10/02/24 History Ascorbic Acid [Vitamin C] 1,000 mg PO DAILY 04/03/22 10/02/24 History Cholecalciferol [Vitamin D3 (25 25 mcg PO DAILY 04/03/22 10/02/24 History Mcg = 1000 Iu)] [place]-3/Dha/Epa/Fish Oil [Fish Oil 1 cap PO DAILY 04/03/22 10/02/24 History 1,000 mg Softgel] Vitc/E/Zinc/Copper/Lutein/Zeax 1 tab PO DAILY 04/03/22 10/02/24 History [Icaps Areds2 Tablet] Zinc 50 mg PO DAILY 04/03/22 10/02/24 History Acetaminophen Tab [Tylenol] 650 mg PO Q4HR PRN tab 04/06/22 10/02/24 Rx Losartan [Cozaar] 50 mg PO DAILY 02/09/24 10/02/24 History Clopidogrel [Plavix] 75 mg PO DAILY #90 tab 09/23/24 10/02/24 Rx Furosemide [Lasix] 40 mg PO DAILY #90 tab 09/23/24 10/02/24 Rx Aspirin EC [Ecotrin Low Dose] 81 mg PO DAILY 10/02/24 10/02/24 History Atorvastatin [Lipitor] 40 mg PO HS 10/02/24 10/02/24 History Pantoprazole [Protonix] 40 mg PO DAILY 10/02/24 10/02/24 History Allergies Allergy/AdvReac Type Severity Reaction Status Date / Time banana Allergy Unknown Verified 10/02/24 13:27 Milk Containing Products Allergy Unknown Verified 10/02/24 13:27 (Dairy) [Dairy] Physical Exam Vitals: Vital Signs Temp Pulse Pulse Resp BP BP Pulse Ox 10/03/24 03:22 98.0 F 63 16 126/65 97 10/03/24 00:24 97.8 F 62 16 113/58 10/02/24 23:38 77 16 114/66 98 10/02/24 22:28 97.9 F 62 16 115/55 98 10/02/24 22:08 97.8 F 69 16 113/68 99 10/02/24 21:59 98.0 F 83 16 111/60 98 10/02/24 20:00 97.8 F 92 16 139/61 96 10/02/24 19:03 97.9 F 97 16 132/65 99 10/02/24 18:56 68 16 134/69 95 10/02/24 14:58 97.4 F L 67 16 129/84 100 10/02/24 13:00 73 16 126/71 100 10/02/24 11:48 16 10/02/24 11:47 97.4 F L 70 16 105/73 99 10/02/24 11:27 97.4 F L 90 20 99/58 98 Intake and Output 10/02/24 10/03/24 10/03/24 22:59 06:59 14:59 Intake Total 0 310 Balance 0 310 Intake: Blood Product 0 310 Rc As-1 Unit 0 310 [id number] Other: Voiding Method Toilet Toilet # Voids 4 1 # Bowel Movements 1 Weight 77.111 kg 77.1 kg Results 10/02/24 20:26 10/02/24 12:04 Cardiac Enzymes 10/02/24 Range/Units 12:04 AST 50 (17-59) U/L Coagulation 10/02/24 Range/Units 12:04 PT 15.6 H (10.0-12.5) sec APTT 28.4 (22.0-30.0) sec CBC 10/02/24 10/02/24 10/02/24 Range/Units 12:04 15:05 20:26 WBC 7.7 5.1 4.9 (3.8-10.6) k/uL RBC 2.64 L 2.35 L 2.29 L (4.30-5.90) m/uL Hgb 8.2 L D 7.2 L 7.2 L (13.0-17.5) gm/dL Hct 25.6 L 22.5 L 22.4 L (39.0-53.0) % Plt Count 176 170 168 (150-450) k/uL Comprehensive Metabolic Panel 10/02/24 Range/Units 12:04 Sodium 135 L (137-145) mmol/L Potassium 4.5 (3.5-5.1) mmol/L Chloride 106 (98-107) mmol/L Carbon Dioxide 26 (22-30) mmol/L BUN 31 H (9-20) mg/dL Creatinine 0.81 (0.66-1.25) mg/dL Glucose 100 H (74-99) mg/dL Calcium 8.5 (8.4-10.2) mg/dL AST 50 (17-59) U/L ALT 28 (4-49) U/L Alkaline Phosphatase 76 (38-126) U/L Total Protein 6.4 (6.3-8.2) g/dL Albumin 3.8 (3.5-5.0) g/dL Current Medications Generic Name Dose Route Start Last Admin Trade Name Freq PRN Reason Stop Dose Admin Acetaminophen 650 mg 10/02/24 14:16 Acetaminophen Tab 325 Mg Tab PO Q6HR PRN Mild Pain or Fever > 100.5 Ascorbic Acid 1,000 mg 10/03/24 09:00 Ascorbic Acid 500 Mg Tab PO DAILY [facility] Aspirin 81 mg 10/03/24 09:00 Aspirin 81 Mg PO DAILY [facility] Atorvastatin Calcium 40 mg 10/03/24 21:00 Atorvastatin 40 Mg Tab PO HS [facility] Cholecalciferol 25 mcg 10/03/24 09:00 Cholecalciferol 25 Mcg (1000 Iu) Tablet PO DAILY [facility] Furosemide 40 mg 10/03/24 09:00 Furosemide 40 Mg Tab PO DAILY [facility] Sodium Chloride 1,000 mls @ 75 mls/hr 10/02/24 14:30 10/03/24 05:00 Saline 0.9% IV Not Given .[id number] [facility] Losartan Potassium 50 mg 10/03/24 09:00 Losartan 50 Mg Tab PO DAILY BRIA Naloxone HCl 0.2 mg 10/02/24 14:16 Naloxone 0.4 Mg/Ml 1 Ml Vial IV Q2M PRN Opioid Reversal Pantoprazole Sodium 40 mg 10/02/24 21:00 10/02/24 20:20 Pantoprazole 40 Mg/10 Ml Vial IVP 40 mg BID BRIA Administration Potassium Chloride 10 meq 10/03/24 09:00 Potassium Chloride Er 10 Meq Tab.Er.Prt PO BID [facility]RI[facility] Tamsulosin HCl 0.4 mg 10/03/24 09:00 Tamsulosin 0.4 Mg Cap.Er.24h PO BID [facility] Intake and Output 10/02/24 10/03/24 10/03/24 22:59 06:59 14:59 Intake Total 0 310 Balance 0 310 Intake: Blood Product 0 310 Rc As-1 Unit 0 310 [id number] Other: Voiding Method Toilet Toilet # Voids 4 1 # Bowel Movements 1 Weight 77.111 kg 77.1 kg 10/02/24 20:26 10/02/24 12:04
[2024-10-03 12:04] LABS: Anisocytosis Slight; Basophils % (A) 1 %; Eosinophils % (A) 1 %; HCT 28.1 % (39.0-53.0); Hypochromasia Marked; Lymphocytes % (A) 17 %; MCH 31.6 pg (25.0-35.0); MCHC 31.7 g/dL (31.0-37.0); MCV 99.8 fL (80.0-100.0); Macrocytosis Slight; Mean Platelet Volume 10.7; Monocytes # (A) 0.5 k/uL (0-1.0); Monocytes % (A) 8 %; Neutrophils # (A) 4.3 k/uL (1.3-7.7); Neutrophils % (A) 73 %; Platelet Count 170 k/uL (150-450); RBC 2.82 m/uL (4.30-5.90); RDW 16.3 % (11.5-15.5)
[2024-10-03 12:19] LABS: HGB 8.9 gm/dL (13.0-17.5)
--- NOTE | 2024-10-03 12:32 | P.HPIM ---
History of Present Illness H&P Date: 10/03/24 Chief Complaint: Shortness of breath, generalized weakness, melena This is an 88-year-old gentleman with past medical history significant for CAD, recent cardiac catheterization with stent placement on 09/22/2024 ,atrial fibrillation, severe aortic stenosis, TAVR 04/05, hypertension, hyperlipidemia, chronic diastolic CHF gastroesophageal reflux disease, osteoarthritis, prostate disorder and multiple other medical issues presented to the ER with complaints of shortness of breath, black stools for couple weeks and generalized weakness. Denies chest pain, palpitations. Denies nausea, vomiting. Denies abdominal pain. Denies prior bleeding disorders,currently on Coumadin, Plavix, aspirin - last taken yesterday .on admission hemoglobin, 8.2, decreased further to 7.2. Baseline hemoglobin 11.9. Afebrile, WBC 4.9 .hemoglobin 7.2 ,platelets 168 INR 1.5. Electrolytes within normal limits. BUN elevated, 31 ,creatinine 0.81. total bilirubin 0.9 AST 50 ALT 28 alkaline phosphatase 76. proBNP 1180. EKG reported atrial fibrillation with right bundle branch block. chest x-ray reported no acute cardiopulmonary disease/process. Review of Systems ROS Statement: Those systems with pertinent positive or pertinent negative responses have been documented in the HPI. ROS Other: All systems not noted in ROS Statement are negative. Past Medical History Past Medical History: Atrial Fibrillation, Coronary Artery Disease (CAD), Eye Disorder, Hypertension, Myocardial Infarction ([place]), Osteoarthritis ([place]), Pneumonia, Prostate Disorder Additional Past Medical History / Comment(s): chronic Afib, had pneumonia 15 yrs. 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, colon polyp/diverticular dx, [place] 1997 per stress test, gastric ulcer, leg cramps at night Last Myocardial Infarction Date:: 1997 History of Any Multi-Drug Resistant Organisms: None Reported Past Surgical History: Adenoidectomy, Heart Catheterization, Heart Catheterization With Stent, Hernia Repair, Orthopedic Surgery, Tonsillectomy Additional Past Surgical History / Comment(s): R inguinal hernia repair, ORIF L hip & then replacement 2016, hemorrhoidectomy, colonoscopy,tavr Past Anesthesia/Blood Transfusion Reactions: No Reported Reaction Date of Last Stent Placement:: Patient states "about a month ago" Past Psychological History: No Psychological Hx Reported Additional Psychological History / Comment(s): Pt lives with his ex spouse. He has a cane he uses prn. He served in the [employer] in [place], He is retired from [employer]. He drives. Smoking Status: Former smoker Past Alcohol Use History: None Reported Additional Past Alcohol Use History / Comment(s): Pt started smoking in 1949 and quit in 1993. Pt states he was a heavy drinker and quit that in 1993. Past Drug Use History: None Reported - Past Family History Mother Family Medical History: No Reported History Additional Family Medical History / Comment(s): Mother was executed in [place]. Sister(s) Family Medical History: No Reported History Additional Family Medical History / Comment(s): Sister was executed in [place]. Father Family Medical History: CVA/TIA, Myocardial Infarction ([place]) Medications and Allergies Home Medications Medication Instructions Recorded Confirmed Type Tamsulosin HCl [Flomax] 0.4 mg PO BID 08/06/17 10/02/24 History Potassium Chloride [Potassium 10 meq PO BID 02/27/22 10/02/24 History Chloride ER] Warfarin [Coumadin] 7.5 mg PO DAILY 02/27/22 10/02/24 History Ascorbic Acid [Vitamin C] 1,000 mg PO DAILY 04/03/22 10/02/24 History Cholecalciferol [Vitamin D3 (25 25 mcg PO DAILY 04/03/22 10/02/24 History Mcg = 1000 Iu)] [place]-3/Dha/Epa/Fish Oil [Fish Oil 1 cap PO DAILY 04/03/22 10/02/24 History 1,000 mg Softgel] Vitc/E/Zinc/Copper/Lutein/Zeax 1 tab PO DAILY 04/03/22 10/02/24 History [Icaps Areds2 Tablet] Zinc 50 mg PO DAILY 04/03/22 10/02/24 History Acetaminophen Tab [Tylenol] 650 mg PO Q4HR PRN tab 04/06/22 10/02/24 Rx Losartan [Cozaar] 50 mg PO DAILY 02/09/24 10/02/24 History Clopidogrel [Plavix] 75 mg PO DAILY #90 tab 09/23/24 10/02/24 Rx Furosemide [Lasix] 40 mg PO DAILY #90 tab 09/23/24 10/02/24 Rx Aspirin EC [Ecotrin Low Dose] 81 mg PO DAILY 10/02/24 10/02/24 History Atorvastatin [Lipitor] 40 mg PO HS 10/02/24 10/02/24 History Pantoprazole [Protonix] 40 mg PO DAILY 10/02/24 10/02/24 History Allergies Allergy/AdvReac Type Severity Reaction Status Date / Time banana Allergy Unknown Verified 10/02/24 13:27 Milk Containing Products Allergy Unknown Verified 10/02/24 13:27 (Dairy) [Dairy] Physical Exam Vitals: Vital Signs Temp Pulse Pulse Resp BP BP Pulse Ox 10/03/24 08:53 100 10/03/24 08:00 98.7 F 67 16 127/63 99 10/03/24 03:22 98.0 F 63 16 126/65 97 10/03/24 00:24 97.8 F 62 16 113/58 10/02/24 23:38 77 16 114/66 98 10/02/24 22:28 97.9 F 62 16 115/55 98 10/02/24 22:08 97.8 F 69 16 113/68 99 10/02/24 21:59 98.0 F 83 16 111/60 98 10/02/24 20:00 97.8 F 92 16 139/61 96 10/02/24 19:03 97.9 F 97 16 132/65 99 10/02/24 18:56 68 16 134/69 95 10/02/24 14:58 97.4 F L 67 16 129/84 100 10/02/24 13:00 73 16 126/71 100 Intake and Output 10/02/24 10/03/24 10/03/24 22:59 06:59 14:59 Intake Total 0 310 Balance 0 310 Intake: Blood Product 0 310 Rc As-1 Unit 0 310 [id number] Other: Voiding Method Toilet Toilet Toilet # Voids 4 1 # Bowel Movements 1 Weight 77.111 kg 77.1 kg PHYSICAL EXAM: VITAL SIGNS: [Reviewed] GENERAL: Alert and oriented x 3, sitting up in bed, no acute distress HEENT: Atraumatic, normocephalic, conjunctivae normal. Pupils equal/round. sclera nonicteric NECK: Supple, no JVD. No thyroid enlargement. No LNs CARDIOVASCULAR: S1, S2. Irregular, systolic murmur RESPIRATION: Unlabored, equal air entry, clear to auscultation. ABDOMEN: Soft, nondistended, nontender . No guarding. no masses palpable. Positive bowel sounds. LEGS: No edema. no swelling. No calf tenderness NERVOUS SYSTEM: Cranial N 2-12 grossly normal. No focal deficits. Strength and sensation grossly intact. Skin: Warm and dry, no rash. Results CBC & Chem 7: 10/02/24 20:26 10/02/24 12:04 Labs: Abnormal Lab Results - Last 24 Hours (Table) 10/02/24 10/02/24 10/02/24 Range/Units 11:39 12:04 12:04 RBC 2.64 L (4.30-5.90) m/uL Hgb 8.2 L D (13.0-17.5) gm/dL Hct 25.6 L (39.0-53.0) % RDW (11.5-15.5) % Lymphocytes # 0.7 L (1.0-4.8) k/uL PT 15.6 H (10.0-12.5) sec INR 1.5 H (<1.2) Sodium (137-145) mmol/L BUN (9-20) mg/dL Glucose (74-99) mg/dL Crossmatch See Detail 10/02/24 10/02/24 10/02/24 Range/Units 12:04 15:05 20:26 RBC 2.35 L 2.29 L (4.30-5.90) m/uL Hgb 7.2 L 7.2 L (13.0-17.5) gm/dL Hct 22.5 L 22.4 L (39.0-53.0) % RDW 15.8 H (11.5-15.5) % Lymphocytes # 0.9 L (1.0-4.8) k/uL PT (10.0-12.5) sec INR (<1.2) Sodium 135 L (137-145) mmol/L BUN 31 H (9-20) mg/dL Glucose 100 H (74-99) mg/dL Crossmatch Thrombosis Risk Factor Assmnt - Choose All That Apply Other Risk Factors: Yes Each Risk Factor Represents 3 Points: Age 75 years or older Thrombosis Risk Factor Assessment Total Risk Factor Score: 3 Thrombosis Risk Factor Assessment Level: Moderate Risk Assessment and Plan Assessment: Acute blood loss anemia, patient with melena, suspected upper GI bleed, EGD pending Acute hypoxic respiratory failure secondary to the above Recent cardiac cath with stent placement on 09/22/2024 Chronic diastolic CHF Persistent atrial fibrillation, rate controlled Severe aortic stenosis status post TAVR 04/05 Plan: Continue on current medication ,monitoring and symptomatic treatment. NPO. Plavix and Coumadin remain on hold, PPI twice daily. Cardiology following. fluid hydration. Evaluated by GI , scheduled for EGD today. close monitoring of hemoglobin with repeat labs ordered for a.m. The impression and plan of care has been dictated as directed. : I performed a history and examination of this patient, discussed the same with the dictator. I agree with the dictator's note ,documented as a scribe. Any additional findings or plans will be noted.
[2024-10-03] MEDS: METOPROLOL TARTRATE 12.5 MG TAB PO SCH (12:39)
[2024-10-03] MEDS: IV FLUID CONTINUATION 800 ML IV ONE (15:09)
[2024-10-03] MEDS ORDERED: PROPOFOL 10 MG/ML 20 ML VIAL IV ONE (15:16)
[2024-10-03] MEDS ORDERED: LIDOCAINE 1% INJ 10MG/ML (20 ML MDV) ONE (15:16)
--- NOTE | 2024-10-03 15:27 | P.PCN ---
Date of Procedure: 10/03/24 Procedure(s) Performed: BRIEF HISTORY: Patient is a 88-year-old, pleasant, white male with history of coronary artery disease with stent placement about a month ago on aspirin Plavix admitted to hospital with black tarry stools for the last 3 weeks and a hemoglobin of 7 g/dL requiring a unit of PRBC transfusion.. PROCEDURE PERFORMED: Esophagogastroduodenoscopy with cautery using a gold probe. PREOPERATIVE DIAGNOSIS: Anemia and melena of 3 weeks duration. IV sedation per anesthesia. PROCEDURE: After informed consent was obtained, the patient was brought into the endoscopy unit. IV sedation was administered by Anesthesia under continuous monitoring. Initially the Olympus GIF-140 video endoscope was inserted into the mouth. Esophagus intubated without any difficulty. It was gradually advanced into the stomach and duodenum and carefully examined. The bulb and the second part of the duodenum appeared normal. The scope at this time was withdrawn to the stomach, adequately insufflated with air, and upon careful examination, mucosa of the antrum, normal. The proximal body of the stomach revealed 2 nonbleeding arteriovenous malformations measuring 5 mm and 7 mm in size both which were cauterized using a gold probe. No active bleeding identified. Rest of the body, cardia and the fundus appeared normal. The scope was then withdrawn into the esophagus. The GE junction was located at 39 cm from the incisors. The esophagus appeared normal. There were no erosions or ulcerations seen and the patient tolerated the procedure well. IMPRESSION: 1. 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 2. Rest of the stomach appeared normal. RECOMMENDATIONS: The findings of this examination were discussed with the patient as well as his family. Diet will be advanced as tolerated. Continue aspirin and Plavix. Monitor CBC daily. Continue Protonix 40 mg daily.
[2024-10-03] MEDS: ATORVASTATIN 40 MG TAB PO SCH (20:24)
[2024-10-03] MEDS: ACETAMINOPHEN TAB 325 MG TAB PO PRN (21:50)
[2024-10-04 08:38] LABS: Basophils # (A) 0.1 k/uL (0-0.2); Basophils % (A) 1 %; Eosinophils # (A) 0.1 k/uL (0-0.7); Eosinophils % (A) 1 %; HGB 7.8 gm/dL (13.0-17.5); Hypochromasia Marked; Lymphocytes # (A) 0.9 k/uL (1.0-4.8); Lymphocytes % (A) 12 %; MCH 30.7 pg (25.0-35.0); MCHC 31.1 g/dL (31.0-37.0); MCV 98.6 fL (80.0-100.0); Macrocytosis Slight; Mean Platelet Volume 10.2; Monocytes # (A) 0.4 k/uL (0-1.0); Monocytes % (A) 5 %; Neutrophils # (A) 6.2 k/uL (1.3-7.7); Neutrophils % (A) 81 %; Platelet Count 146 k/uL (150-450); RBC 2.54 m/uL (4.30-5.90); RDW 15.8 % (11.5-15.5); WBC 7.6 k/uL (3.8-10.6)
[2024-10-04 08:46] LABS: African American GFR (CKD) >90 (>60 ml/min/1.73 sqM); Anion Gap 4 mmol/L; Blood Urea Nitrogen 20 mg/dL (9-20); Calcium 7.9 mg/dL (8.4-10.2); Carbon Dioxide 29 mmol/L (22-30); Chloride 105 mmol/L (98-107); Glucose 83 mg/dL (74-99); Non-African American GFR(CKD) 81 (>60 ml/min/1.73 sqM); Sodium 138 mmol/L (137-145)
[2024-10-04] MEDS ORDERED: ACETAMINOPHEN TAB 325 MG TAB PO PRN (11:44)
[2024-10-04] MEDS: CLOPIDOGREL 75 MG TAB PO SCH (12:17)
--- NOTE | 2024-10-04 12:49 | P.PN ---
Subjective Progress Note Date: 10/04/24 This is an 88-year-old male patient of Dr. García with past medical history of severe aortic stenosis status post TAVR 04/05, hypertension, persistent atrial fibrillation, left anterior fascicular block, right anterior fascicular block, chronic diastolic heart failure, hyperlipidemia, GERD. We have been asked to evaluate the patient for melena while on Plavix for recent stent. Patient presented to the hospital due to shortness of breath. He denies having any chest pain. Patient also has generalized weakness. Apparently has had 2 weeks of black stools. No abdominal pain. Patient has been seen by GI and is scheduled for EGD this afternoon. Plavix and Coumadin are on hold and he is status post 1 unit of packed RBCs. Blood pressure 127/63, heart rate 67, pulse ox 99% on 2 L nasal cannula. -EKG: Atrial fibrillation at 76 bpm -Chest x-ray: No acute process -Laboratory studies: WBC 4.9, hemoglobin 7.2, INR 1.5, BUN 31 creatinine 0.81, sodium 135, potassium 4.5. proBNP 1180. -Home cardiac medications: Aspirin 81 mg daily, Lipitor 40 mg daily, Plavix 75 mg daily, Lasix 40 mg daily, losartan 50 mg daily, omega-3, potassium chloride 10 mill equivalents twice daily, warfarin 7.5 mg daily. -Left heart catheterization performed on 09/22/2024 revealed 40 to 50% mid LAD, circumflex 80%, mid RCA 60 to 70% stenosis. Patient subsequently underwent PCI of the mid circumflex with QUEENIE. -Echocardiogram performed in the office on 04/04/2023 reveals EF of 55%, grade 2 diastolic dysfunction, moderate concentric left ventricular hypertrophy. Severely dilated left atrium. Transcatheter AV prosthesis with normal function, ascending aorta normal, mild to moderate mitral regurgitation. Moderate tricuspid regurgitation, PASP 39 mmHg, trace to mild pulmonic regurgitation. Progress note 10/04/2024 Patient is seen and examined at bedside this a.m. Hemoglobin is somewhat stabilized. Had upper GI endoscopy yesterday with AV malformations which were not actively bleeding status post cauterization. Okay to be resumed on Plavix as per GI team. Physical examination: Gen: This is an 88-year-old male appears to be in no acute distress VS: reviewed HEENT: Head is atraumatic, normocephalic. Pupils equal, round. Sclerae is anicteric. NECK: Supple. No JVD. LUNGS: Clear to auscultation. No wheezes or rhonchi. No intercostal retractions. HEART: Irregular rate and rhythm. Systolic murmur. ABDOMEN: Soft No tenderness. EXTREMITIES: No pedal edema. No calf tenderness. NEUROLOGICAL: Patient is awake, alert and oriented x3. Assessment: Shortness of breath secondary to a combination of anemia, chronic diastolic heart failure Acute GI bleed with acute blood loss anemia, EGD scheduled for this afternoon Coronary artery disease with stent placement to the mid circumflex on 09/22/2024 History of severe aortic stenosis status post TAVR 04/05 Hypertension Persistent atrial fibrillation, currently rate controlled Left anterior fascicular block and right anterior fascicular block Chronic diastolic heart failure Plan: Continue current cardiac medications including aspirin and Plavix. 1 dose of IV iron Start p.o. iron B12 and folate supplementation Order for hemoglobin. Watch for any signs of bleeding. At this time cardiology will sign off. In case of any concerns or concerns of active bleeding, please reconsult us Objective - Vital Signs Vital signs: Vital Signs Temp 97.2 F L 10/04/24 12:00 Pulse 104 H 10/04/24 12:00 Resp 14 10/04/24 12:00 BP 98/60 10/04/24 12:00 Pulse Ox 95 10/04/24 10:13 FiO2 Intake & Output 10/03/24 10/04/24 10/04/24 18:59 06:59 18:59 Intake Total 220 240 Balance 220 240 Weight 76 kg Intake: IV 100 Oral 120 240 Other: Voiding Method Toilet Toilet Toilet # Voids 2 0 - Labs CBC & Chem 7: 10/04/24 07:52 10/04/24 07:52 Labs: Abnormal Lab Results - Last 24 Hours (Table) 10/04/24 10/04/24 Range/Units 07:52 07:52 RBC 2.54 L (4.30-5.90) m/uL Hgb 7.8 L (13.0-17.5) gm/dL Hct 25.0 L (39.0-53.0) % RDW 15.8 H (11.5-15.5) % Plt Count 146 L (150-450) k/uL Lymphocytes # 0.9 L (1.0-4.8) k/uL Calcium 7.9 L (8.4-10.2) mg/dL
--- NOTE | 2024-10-04 13:10 | P.PN ---
Subjective Progress Note Date: 10/04/24 Principal diagnosis: GI bleed, atrial fibrillation, history of severe aortic stenosis with TAVR patient is up in a chair awake alert vital signs are stable patient is afebrile patient is in an excellent mood states he is feeling that her hemoglobin is somewhat stable waiting on GI and cardiology evaluation today Objective - Vital Signs Vital signs: Vital Signs Temp 97.2 F L 10/04/24 12:00 Pulse 104 H 10/04/24 12:00 Resp 14 10/04/24 12:00 BP 98/60 10/04/24 12:00 Pulse Ox 95 10/04/24 10:13 FiO2 Intake & Output 10/03/24 10/04/24 10/04/24 18:59 06:59 18:59 Intake Total 220 240 Balance 220 240 Weight 76 kg Intake: IV 100 Oral 120 240 Other: Voiding Method Toilet Toilet Toilet # Voids 2 0 - EENT EENT Comment(s): General: [Patient awake, alert and oriented times 3. Patient in no acute distress.] HEENT: [PERRL. EOMI. No pharyngeal erythema or exudate.] Neck: [No adenopathy.] Cardiac: [Heart regular in rate and rhythm. No S3. No S4. No clicks, rubs. No murmur.] Lungs: [Clear to auscultation bilaterally.] Abdomen: [No mass. No organomegaly. Bowel sounds presnt and normoactive in all 4 quadrants.] Extremes: [No edema no cyanosis no claudication normal pulses] : [] Musculoskeletal: [No joint erythema, edema or tenderness.] Skin: [No rash.] Neurologic: [No lateralizing deficits. CN II - XII grossly intact.] Lymphatic: [No adenopathy.] - Labs CBC & Chem 7: 10/04/24 07:52 10/04/24 07:52 Labs: Abnormal Lab Results - Last 24 Hours (Table) 10/04/24 10/04/24 Range/Units 07:52 07:52 RBC 2.54 L (4.30-5.90) m/uL Hgb 7.8 L (13.0-17.5) gm/dL Hct 25.0 L (39.0-53.0) % RDW 15.8 H (11.5-15.5) % Plt Count 146 L (150-450) k/uL Lymphocytes # 0.9 L (1.0-4.8) k/uL Calcium 7.9 L (8.4-10.2) mg/dL Assessment and Plan (1) Anemia Current Visit: Yes Status: Acute Code(s): D64.9 - ANEMIA, UNSPECIFIED SNOMED Code(s): 753006521 (2) GI bleed Current Visit: Yes Status: Acute Code(s): K92.2 - GASTROINTESTINAL HEMORRHAGE, UNSPECIFIED SNOMED Code(s): 43335498 (3) Melena Current Visit: Yes Status: Acute Code(s): K92.1 - MELENA SNOMED Code(s): 3160389 (4) Aortic stenosis Current Visit: No Status: Acute Code(s): I35.0 - NONRHEUMATIC AORTIC (VALVE) STENOSIS SNOMED Code(s): 25958598 (5) Hip dislocation, left Current Visit: No Status: Acute Code(s): S73.005A - UNSPECIFIED DISLOCATION OF LEFT HIP, INITIAL ENCOUNTER SNOMED Code(s): 670697800 Plan: patient had EGD yesterday AVMs noted Restart Plavix Known A. fib with TAVR GI bleed appears stable Waiting on current cardiology eval Waiting on current GI eval Time with Patient: Greater than 30
[2024-10-04] MEDS: SODIUM FERRIC GLUCONAT-SUCROSE 125 MG in SODIUM CHLORIDE 0.9% 100 ML IVPB ONE (13:50)
[2024-10-04] MEDS: IRON PS CMPLX/VIT B12/FA 1 EACH CAP PO SCH (14:00)
[2024-10-04] MEDS ORDERED: ATORVASTATIN 40 MG TAB PO SCH (21:00)
[2024-10-04] MEDS ORDERED: NON FORMULARY DRUG (Potassium Chloride [Potassium Chloride Er] 10 MEQ Capsule.Er) PO SCH (21:00)
[2024-10-04] MEDS ORDERED: TAMSULOSIN 0.4 MG CAP.ER.24H PO SCH (21:00)
[2024-10-05 07:44] VITALS: RESP 16
[2024-10-05 07:55] LABS: Basophils % (A) 1 %; Eosinophils # (A) 0.1 k/uL (0-0.7); Eosinophils % (A) 1 %; HCT 28.2 % (39.0-53.0); HGB 8.8 gm/dL (13.0-17.5); Hypochromasia Moderate; Lymphocytes # (A) 0.9 k/uL (1.0-4.8); Lymphocytes % (A) 12 %; MCH 30.4 pg (25.0-35.0); MCHC 31.4 g/dL (31.0-37.0); Macrocytosis Slight; Mean Platelet Volume 11.1; Monocytes # (A) 0.4 k/uL (0-1.0); Monocytes % (A) 5 %; Neutrophils # (A) 6.1 k/uL (1.3-7.7); Neutrophils % (A) 81 %; Platelet Count 169 k/uL (150-450); RBC 2.91 m/uL (4.30-5.90); RDW 15.9 % (11.5-15.5); WBC 7.5 k/uL (3.8-10.6)
[2024-10-05] MEDS ORDERED: NON FORMULARY DRUG (Omega-3/Dha/Epa/Fish Oil [Fish Oil 1,000 Mg Softgel] 1 EACH Capsule) PO SCH (09:00)
[2024-10-05] MEDS ORDERED: NON FORMULARY DRUG (Aspirin Ec 81 MG Tablet) PO SCH (09:00)
[2024-10-05] MEDS ORDERED: CHOLECALCIFEROL 25 MCG (1000 IU) TABLET PO SCH (09:00)
[2024-10-05] MEDS ORDERED: LOSARTAN 50 MG TAB PO SCH (09:00)
[2024-10-05] MEDS ORDERED: CLOPIDOGREL 75 MG TAB PO SCH (09:00)
[2024-10-05] MEDS ORDERED: FUROSEMIDE 20 MG TAB PO SCH (09:00)
[2024-10-05] MEDS ORDERED: PANTOPRAZOLE 40 MG TABLET PO SCH (09:00)
[2024-10-05] MEDS ORDERED: NON FORMULARY DRUG (Ascorbic Acid [Vitamin C] 1,000 MG Tablet) PO SCH (09:00)
[2024-10-05] MEDS: ZINC SULFATE 220 MG CAP PO SCH (09:03)
[2024-10-05] MEDS: VIT A,C & E-LUTEIN-MINERALS 1 EACH TAB PO SCH (09:08)
[2024-10-05 11:34] VITALS: BP 100/58; PULSE 73; TEMP 97.5
--- NOTE | 2024-10-05 13:13 | P.DS ---
Providers Date of admission: 10/02/24 14:18 Expected date of discharge: 10/05/24 Attending physician: Masoud Joy Consults: 10/02/24 14:16 Consult Physician Routine Consulting Provider: Jere García Consult Reason/Comments: Melena on Plavix, recent stent Do you want consulting provider notified?: Yes Consult Physician Routine Consulting Provider: Bhumika Llanos Consult Reason/Comments: Melena , anemia Do you want consulting provider notified?: Yes Primary care physician: Masoud Joy - Discharge Diagnosis(es) (1) Anemia Current Visit: Yes Status: Acute (2) GI bleed Current Visit: Yes Status: Acute (3) Melena Current Visit: Yes Status: Acute (4) Aortic stenosis Current Visit: No Status: Acute (5) Hip dislocation, left Current Visit: No Status: Acute Hospital Course: heart rate controlled regularley irregular Hgb stable Patient Condition at Discharge: Stable Plan - Discharge Summary Discharge Rx Participant: No New Discharge Prescriptions: No Action Tamsulosin HCl [Flomax] 0.4 mg PO BID Warfarin [Coumadin] 7.5 mg PO DAILY Cholecalciferol [Vitamin D3 (25 Mcg = 1000 Iu)] 25 mcg PO DAILY Zinc 50 mg PO DAILY Vitc/E/Zinc/Copper/Lutein/Zeax [Icaps Areds2 Tablet] 1 tab PO DAILY Robson-3/Dha/Epa/Fish Oil [Fish Oil 1,000 mg Softgel] 1 cap PO DAILY Atorvastatin [Lipitor] 40 mg PO HS Potassium Chloride [Potassium Chloride ER] 10 meq PO BID Ascorbic Acid [Vitamin C] 1,000 mg PO DAILY Acetaminophen Tab [Tylenol] 650 mg PO Q4HR PRN tab PRN Reason: Fever And/ Or Mild Pain (1-3) Losartan [Cozaar] 50 mg PO DAILY Furosemide [Lasix] 40 mg PO DAILY #90 tab Clopidogrel [Plavix] 75 mg PO DAILY #90 tab Pantoprazole [Protonix] 40 mg PO DAILY Aspirin EC [Ecotrin Low Dose] 81 mg PO DAILY Discharge Medication List Tamsulosin HCl [Flomax] 0.4 mg PO BID 08/06/17 [History] Potassium Chloride [Potassium Chloride ER] 10 meq PO BID 02/27/22 [History] Ascorbic Acid [Vitamin C] 1,000 mg PO DAILY 04/03/22 [History] Cholecalciferol [Vitamin D3 (25 Mcg = 1000 Iu)] 25 mcg PO DAILY 04/03/22 [History] Robson-3/Dha/Epa/Fish Oil [Fish Oil 1,000 mg Softgel] 1 cap PO DAILY 04/03/22 [History] Vitc/E/Zinc/Copper/Lutein/Zeax [Icaps Areds2 Tablet] 1 tab PO DAILY 04/03/22 [History] Zinc 50 mg PO DAILY 04/03/22 [History] Acetaminophen Tab [Tylenol] 650 mg PO Q4HR PRN tab 04/06/22 [Rx] Losartan [Cozaar] 50 mg PO DAILY 02/09/24 [History] Clopidogrel [Plavix] 75 mg PO DAILY #90 tab 09/23/24 [Rx] Furosemide [Lasix] 40 mg PO DAILY #90 tab 09/23/24 [Rx] Aspirin EC [Ecotrin Low Dose] 81 mg PO DAILY 10/02/24 [History] Atorvastatin [Lipitor] 40 mg PO HS 10/02/24 [History] Pantoprazole [Protonix] 40 mg PO DAILY 10/02/24 [History] Follow up Appointment(s)/Referral(s): Masoud Joy Jr, DO [Primary Care Provider] - 1-2 days Discharge Disposition: HOME WITH HOME HEALTH SERVICES
== END 2024-10-05 14:40 | disposition home health service (06) | DRG 378 ==
LOC: EC 11:21 → 3SCARD 14:18
PROVIDERS: ADMIT Family Medicine; ATTEND Family Medicine
PROC: 30233N1 Transfusion of Nonautologous Red Blood Cells into Peripheral Vein, Percutaneous Approach (ICD-10-PCS; 2024-10-02)
PROC: 0W3P8ZZ Control Bleeding in Gastrointestinal Tract, Via Natural or Artificial Opening Endoscopic (ICD-10-PCS; principal; 2024-10-03 07:30)
DX: K31.811 Angiodysplasia of stomach and duodenum with bleeding (principal); D62 Acute posthemorrhagic anemia; I48.19 Other persistent atrial fibrillation; I50.32 Chronic diastolic (congestive) heart failure; I45.2 Bifascicular block; E78.5 Hyperlipidemia, unspecified; I25.10 Atherosclerotic heart disease of native coronary artery without angina pectoris; I11.0 Hypertensive heart disease with heart failure; K21.9 Gastro-esophageal reflux disease without esophagitis; I25.2 Old myocardial infarction; Z79.01 Long term (current) use of anticoagulants; Z79.02 Long term (current) use of antithrombotics/antiplatelets; Z79.82 Long term (current) use of aspirin; Z79.899 Other long term (current) drug therapy; Z95.5 Presence of coronary angioplasty implant and graft; Z95.2 Presence of prosthetic heart valve; Z87.891 Personal history of nicotine dependence; Z87.11 Personal history of peptic ulcer disease
CPT/HCPCS: 36415; 43270; 71046; 80048; 80053; 82272; 83605; 83735; 83880; 85025; 85610; 85730; 86850; 86900; 86901; 86920; 93005; 94760; 96361; 96374; 99291

== ENCOUNTER → 2024-10-22 | Outpatient (CLI) | payer MEDICARE ==
[2024-10-22 15:07] LABS: Basophils # (A) 0.03 X 10*3/uL (0.00-0.10); Basophils % (A) 0.4 %; Eosinophils # (A) 0.03 X 10*3/uL (0.04-0.35); Eosinophils % (A) 0.4 %; HCT 28.7 % (39.6-50.0); HGB 8.4 g/dL (13.0-17.0); Lymphocytes # (A) 1.19 X 10*3/uL (0.90-5.00); Lymphocytes % (A) 17.7 %; MCH 27.7 pg (27.0-32.0); MCHC 29.3 g/dL (32.0-37.0); MCV 94.7 FL (80.0-97.0); Mean Platelet Volume 12.3 FL (9.5-12.2); Monocytes # (A) 0.47 X 10*3/uL (0.20-1.00); NRBC Per 100 WBC 0 X 10*3/uL (0.00-0.01); Neutrophils # (A) 4.98 X 10*3/uL (1.80-7.70); Neutrophils % (A) 73.9 %; Platelet Count 179 X 10*3/uL (140-440); RBC 3.03 X 10*6/uL (4.40-5.60); RDW 16.2 % (11.5-14.5); WBC 6.74 X 10*3/uL (4.50-10.00)
[2024-10-22 16:03] LABS: ALT 28 U/L (10-49); AST 30 U/L (14-35); Albumin 3.8 g/dL (3.8-4.9); Albumin/Globulin Ratio 1.46 Ratio (1.60-3.17); Alkaline Phosphatase 97 U/L (41-126); BUN/Creat Ratio 21.09 Ratio (12.00-20.00); Blood Urea Nitrogen 23.2 mg/dL (9.0-27.0); Calcium 8.5 mg/dL (8.7-10.3); Carbon Dioxide 28.7 mmol/L (21.6-31.8); Chloride 106 mmol/L (96-109); Globulin 2.6 g/dL (1.6-3.3); Glucose 127 mg/dL (70-110); Sodium 145 mmol/L (135-145); Total Bilirubin 0.3 mg/dL (0.3-1.2); Total Protein 6.4 g/dL (6.2-8.2)
== END | disposition home or self-care (01) ==
LOC: LABWHC1 09:09
PROVIDERS: ATTEND Family Medicine
DX: K92.2 Gastrointestinal hemorrhage, unspecified (principal); D62 Acute posthemorrhagic anemia; Z68.27 Body mass index [BMI] 27.0-27.9, adult
CPT/HCPCS: 36415; 80053; 85025